=== PATIENT | male | born 1945 | race Caucasian/White ===

== ENCOUNTER 2023-10-22 12:12 | Emergency (ER) | payer MEDICARE, OTHER, SELFPAY ==
[2023-10-22 12:44] LABS: % Basophils 3.2 % (0-2); % Eosinophils 3.7 % (0-6); % Lymphocytes 22.4 % (20.5-51.1); % Monocytes 7.3 % (1.7-9.3); % Neutrophils 62.4 % (42.2-75.2); Absolute Basophils 0.2 10^3/uL (0-0.2); Absolute Eosinophils 0.3 10^3/uL (0-0.7); Absolute Immature Granulocytes 0.1 10^3/uL (0-0.05); Absolute Lymphocytes 1.6 10^3/uL (1.2-3.4); Absolute Monocytes 0.5 10^3/uL (0.1-0.6); Absolute Neutrophils 4.4 10^3/uL (1.4-6.5); Hematocrit 46.9 % (39.0-52.0); Hemoglobin 15.5 g/dL (13.0-18.0); Mean Corpuscular Hgb 27.8 pg (27.0-31.0); Mean Corpuscular Volume 84.2 fL (80.0-94.0); Mean Platelet Volume 10.3 fL (7.4-10.4); Nucleated Red Blood Cells % 0 % (-); Platelet Count 185 10^3/uL (130-400); Red Blood Cell Count 5.57 10^6/uL (4.70-6.10); Red Cell Dist. Width 15.3 % (11.5-14.5)
[2023-10-22 13:04] LABS: ALT (SGPT) 19 U/L (0-50); AST (SGOT) 23 U/L (17-59); Albumin 4.2 g/dl (3.5-5.0); Alkaline Phosphatase 55 U/L (38-126); Blood Urea Nitrogen 20 mg/dl (9-20); Calcium 9.5 mg/dl (8.4-10.2); Carbon Dioxide 28 mmol/L (22-30); Chloride 102 mmol/L (98-107); Glucose 73 mg/dl (70-99); Potassium 4.7 mmol/L (3.5-5.1); Sodium 134 mmol/L (135-145); Total Bilirubin 0.9 mg/dl (0.2-1.3); Total Protein 7.1 g/dl (6.3-8.2); eGFR > 60.00
[2023-10-22 13:10] LABS: Troponin I < 0.012 ng/ml
--- NOTE | 2023-10-22 13:38 | ED.GENMED ---
History of Present Illness
General
Chief Complaint: Chest Pain
Source: patient and spouse
Exam Limitations: none
Time Seen by Provider: 10/22/23 13:31
Nursing documentation reviewed up to this point in time: agreed with
Travel History
Have you had any contact with someone who has COVID-19?: No
Do you have any symptoms of coronavirus? Fever > 100 degrees, chills, cough, shortness of breath, sore throat, loss of taste or smell, muscle aches, or headache?: No
History of Present Illness
History of Present Illness:
77-year-old male with history of HLD, dilated aorta gets CT every year to monitor. Pt states he's had 'tingling' across anterior upper chest and both arms, mainly the left arm and once in a while the right leg past 3 days. Waxes and wanes /10 to
now 10/06. Denies SOB, has had 'once in a while a little pressure in the mid chest.' Denies CP now. Denies feeling lightheaded.
Past History
Past History
ED Past Medical History: Hypercholesterolemia and Other ('enlarged aorta')
ED Past Surgical History: Orthopedic
Social History
Tobacco: Non-smoker
Alcohol: None
Personal:
Living: with family
Review of Systems
Review of Systems
Allergies reviewed?: Yes
All Other Systems: ROS reviewed and negative except as documented in HPI and ROS
Constitutional: Denies fever or fatigue
Respiratory: Denies trouble breathing
Cardiac: Reports chest pain (intermittent); Denies diaphoresis, palpitations or syncope
ABD/GI: Denies abdominal pain, nausea, vomiting, diarrhea or anorexia
: Denies dysuria, frequency, incontinence or difficulty voiding
Musculoskeletal: Reports no symptoms; Denies edema
Skin: Reports no symptoms
Neurological: Reports other (tingling sensation waxes and wanes intermittently UE's and across upper chest wall, RLE); Denies dizzy, headache, weakness or numbness
Phy Exam
Physical Exam
Physical Exam:
GENERAL: No acute distress. A&Ox3.
CONSTITUTIONAL: Afebrile.
EYES: clear, conjunctivae normal
ENMT: moist mucus membranes, Pharynx nl
RESPIRATORY: Regular respirations, nonlabored, lungs clear.
CARDIOVASCULAR: Regular rate and rhythm, no murmurs, no rubs.
GI: Soft, nontender, normal BS
MUSCULOSKELETAL: Moves with ease. Well perfused.
SKIN: Warm, dry, pink
PSYCH: Normal mood and affect. Well kept, interactive and appropriate
NEUROLOGIC: Awake, alert and oriented. Speech clear. Strength 5/5 throughout. Ambulates well with normal gait. No focal neurological deficits
Scores
Heart Score for Chest Pain Patients
STEMI patient?: Not applicable
Course
Orders/Labs/Results
Orders:
Orders
10/22/23 12:28
ECG [Electrocardiogram (*1)] Urgent
Reason for Study: Chest Pain
10/22/23 12:32
EKG- Treatment ONCE
10/22/23 12:38
Complete Blood Count/With Diff Urgent
Comprehensive Metabolic Panel Urgent
Troponin I Urgent
10/22/23 14:56
CT Chest/abd/pelvis Angio W/wo Urgent
Comment:
Reason For Exam: hx dilated aorta, parestesthesias both arms, chest
Abnormal Lab Results
10/22/23
12:38
RDW 15.3 H %
(11.5-14.5)
Abs Immat Gran (auto) 0.1 H 10^3/uL
(0-0.05)
Immature Gran % 1.0 H %
(0-0.5)
Basophils % 3.2 H %
(0-2)
Sodium 134 L mmol/L
(135-145)
10/22/23 12:38
10/22/23 12:38
Vital Signs
Initial and Last Documented VS:
Initial Vital Signs
Temp Pulse Resp BP Pulse Ox
98.7 F 64 16 138/81 95
10/22/23 12:28 10/22/23 12:28 10/22/23 12:28 10/22/23 12:28 10/22/23 12:28
Last Documented Vital Signs
Temp Pulse Resp BP Pulse Ox
98.7 F 67 19 132/60 95
10/22/23 12:28 10/22/23 17:45 10/22/23 17:45 10/22/23 17:17 10/22/23 17:45
MDM/Problems Addressed
Differential Diagnosis Includes:
paresthesias, VA, AAA
MDM/Problems Addressed:
77-year-old male with history of HLD, dilated aorta gets CT every year to monitor. Pt states he's had 'tingling' across anterior upper chest and both arms, mainly the left arm and once in a while the right leg past 3 days. Waxes and wanes 12/04 to
now 10/06. Denies SOB, has had 'once in a while a little pressure in the mid chest.' Denies CP now. Denies feeling lightheaded.
NAD, VSS
EKG: Sinus bradycardia, LAD
10/22/2023 1339 PM
Records reviewed, patient had an echocardiogram in 11/2021 showing EF of 60 to 65%, mild left ventricular hypertrophy, dilated aortic root and ascending aorta 4.6 cm mild aortic regurgitation. Echo of 12/2022 notes that the aorta went from 4.6 to 4.9
cm
CBC, CMP normal
Case discussed with Dr. Neff who agrees with CTA to evaluated Aorta
10/22/2023 1752 PM
Chest CTA, radiology report read: IMPRESSION: No acute disease of the chest, abdomen and pelvis. No evidence of aortic dissection.
Ascending aortic aneurysm measuring 4.7 cm. Stable
Hypodense right thyroid lesion likely a benign nodule. Stable. Dedicated thyroid ultrasound recommended if not previously evaluated.
Pancreatic fatty infiltration. Stable
Bilateral hip hardware.
Patient stable for discharge, ambulated out with normal gait.
*Critical Care Note
Total Time (30-74mins, 75-104mins- exclusive of procedures): Not Applicable
ED Attending Note
-
Portions of this chart may have been created with voice recognition software.� Occasional wrong word or��sound alike� substitutions may have occurred due to the inherent limitations of voice recognition software.
Discharge Plan
Departure
Patient Disposition: Home (Routine Discharge)
Date of Disposition: 10/22/23
Time of Disposition: 17:55
Patient with high blood pressure during this ER visit?: No
Condition: Good
Discharge Problem:
Paresthesia
Instructions: Paresthesia (DC)
Prescriptions:
No Action
atorvastatin [Lipitor] 10 mg Tablet
10 mg PO HS
ramipril 5 mg Capsule
5 mg PO QPM
Sleep Aid (doxylamine) 25 mg Tablet
25 mg PO HS PRN (Reason: sleep)
Flexi Joint 500-400-166.6 mg Tablet
1 tab PO BID
Prostate Control 67-28-76-100 mg Capsule
1 cap PO DAILY
Referrals:
Santiago Avila DO [Family Provider] - Keep scheduled appt
Activity Restrictions/Additional Instructions:
As we discussed, your workup here for a heart attack is totally negative.
Keep your appointment on 04/[address] Martinez on 11/01. Please discuss your tingling sensations at that time.
Interventions
Interventions:
*Risk Screen - Suicide Last Done: 10/22/23 13:13
*General Assessment Last Done: 10/22/23 15:15
*Neglect/Abuse Screening Last Done: 10/22/23 13:13
ED- Fall Risk Assessment Last Done: 10/22/23 17:58
*ED COVID-19 Vaccine History Last Done: 10/22/23 15:15
*Nursing Disposition Last Done: 10/22/23 17:58
ED- Cardiac Assessment Last Done: 10/22/23 14:53
Discharge Date and Time
Discharge Date/Time: 10/22/23 18:03
== END 2023-10-22 18:03 | disposition home or self-care (01) ==
LOC: EMR 12:12
PROVIDERS: Emergency Medicine; EMERGENCY PHYSICIAN Emergency Medicine; FAMILY PHYSICIAN Internal Medicine
DX: R20.2 Paresthesia of skin (principal); R07.9 Chest pain, unspecified; I71.21 Aneurysm of the ascending aorta, without rupture
CPT/HCPCS: 99285; 71275; 74174; 80053; 84484; 85025; 93005; Q9967

== ENCOUNTER → 2024-06-17 11:01 | Outpatient (REF) | payer MEDICARE, OTHER, SELFPAY | LOC: DHCBC/DCA 11:01 | PROVIDERS: ATTENDING PHYSICIAN Internal Medicine; FAMILY PHYSICIAN Internal Medicine | DX: R07.9 Chest pain, unspecified (principal); I77.89 Other specified disorders of arteries and arterioles | CPT/HCPCS: 78452; 93017; A9500; J2785 ==

== ENCOUNTER → 2024-06-20 12:56 | Outpatient (REF) | payer MEDICARE, OTHER, SELFPAY | LOC: RCS 12:56 | PROVIDERS: ATTENDING PHYSICIAN Internal Medicine; FAMILY PHYSICIAN Internal Medicine | DX: I77.89 Other specified disorders of arteries and arterioles (principal); R07.9 Chest pain, unspecified | CPT/HCPCS: 93306 ==

== ENCOUNTER → 2025-04-02 12:05 | Outpatient (REF) | payer MEDICARE, OTHER, SELFPAY | LOC: HWRAD 12:05 | PROVIDERS: ATTENDING PHYSICIAN Nurse Practitioner Family | DX: Z00.00 Encounter for general adult medical examination without abnormal findings (principal) | CPT/HCPCS: 71046 ==

== ENCOUNTER 2025-04-06 10:38 | Inpatient (IN) | payer MEDICARE, OTHER, SELFPAY ==
[2025-04-06] VITALS (16 sets, daily range): BP systolic 76–130; BP diastolic 47–79; PULSE 74–102; BMI 29.0
--- NOTE | 2025-04-06 05:28 | EDRN ---
During ortho signs, pt felt some nausea when he was sitting, no dizziness. While standing, pt felt dizzy then noted some chest discomfort in upper chest.
[2025-04-06] MEDS: NSS 1000 IV ×2 (05:30→16:53)
[2025-04-06 05:38] LABS: Hematocrit 36.0 % (39.0-52.0); Hemoglobin 11.9 g/dL (13.0-18.0); Mean Corp Hgb Conc. 33.1 g/dL (33.0-37.0); Mean Corpuscular Volume 89.1 fL (80.0-94.0); Platelet Count 387 10^3/uL (130-400); Red Cell Dist. Width 17.5 % (11.5-14.5)
--- NOTE | 2025-04-06 05:43 | EDRN ---
Pt thinks he vomited approximately 3-4 times last night. Pt had a hamburger, bread and caprese salad for dinner. No ill contacts.
[2025-04-06 05:56] LABS: ALT (SGPT) 17 U/L (0-50); AST (SGOT) 22 U/L (17-59); Albumin 3.8 g/dl (3.5-5.0); Alkaline Phosphatase 65 U/L (38-126); Blood Urea Nitrogen 22 mg/dl (9-20); Calcium 9.0 mg/dl (8.4-10.2); Carbon Dioxide 26 mmol/L (22-30); Chloride 108 mmol/L (98-107); Estimated Creatinine Clearance 52 ml/min; Glucose 126 mg/dl (70-99); Potassium 4.3 mmol/L (3.5-5.1); Sodium 142 mmol/L (135-145); Total Protein 6.4 g/dl (6.3-8.2); eGFR > 60.00
[2025-04-06 06:06] LABS: Troponin I < 0.012 ng/ml
[2025-04-06 06:09] LABS: Urine Character Clear (Clear)
[2025-04-06 06:16] LABS: Urine White Cell 0-2 /HPF (0-5)
--- NOTE | 2025-04-06 06:27 | ED.GENMED ---
History of Present Illness
<Jacquelyn Azar DO, Resident - Last Filed: 04/06/25 13:11>
General
Chief Complaint: Fainting Sensation
Source: patient and significant other
Time Seen by Provider: 04/06/25 06:05
History of Present Illness
History of Present Illness:
Patient is a 79-year-old male past medical history of a stable aortic aneurysm, presenting with dizziness and nausea. Patient has been feeling unwell for the last 2 weeks with new dizziness, nausea, vomiting, being worked up by primary care.
Patient states that he is being worked up for leukemia, and has a visit with [facility] tomorrow. Last night patient had an episode of dizziness where he could not stand up and fell to the ground. Patient denies a loss of consciousness.
Patient denies hitting his head. Patient was on the bathroom floor for up to 2 hours until his heard him and came down stairs to help. called EMS. When EMS arrived patient was hypotensive and hypoxic. They started him on 200 mL of
normal saline. In the ED patient's blood pressure is 108/47, heart rate 98 respiratory rate 18 O2 sat 92%. Patient endorses nausea chills dizziness and now new onset chest discomfort.
Past History
<Jacquelyn Azar DO, Resident - Last Filed: 04/06/25 13:11>
Past History
ED Past Medical History: Hypercholesterolemia and Other ('enlarged aorta')
ED Past Surgical History: Orthopedic
Social History
Tobacco: Non-smoker
Alcohol: None
Personal:
Living: with family
Review of Systems
<Jacquelyn Azar DO, Resident - Last Filed: 04/06/25 13:11>
Review of Systems
Allergies reviewed?: No
All Other Systems: ROS reviewed and negative except as documented in HPI and ROS
Constitutional: Reports fatigue and chills
EENT: Reports no symptoms
Respiratory: Reports no symptoms
Cardiac: Reports chest pain
ABD/GI: Reports nausea and vomiting
: Reports no symptoms
Musculoskeletal: Reports no symptoms
Skin: Reports no symptoms
Neurological: Reports dizzy
Hematologic/Lymphatic: Reports no symptoms
Psychiatric: Reports no symptoms
Phy Exam
<Jacquelyn Azar DO, Resident - Last Filed: 04/06/25 13:11>
General Physical Exam
General Presentation: well appearing and no apparent distress
General age: appears stated age
General Skin: warm and dry
General Habitus: obese
General Mental: alert
Cardiovascular Exam
Cardiovascular Exam: occasionally irregular
Heart Sounds: normal
Pulmonary Exam
Pulmonary Exam: lungs clear and no respiratory distress
Gastrointestinal Exam
Gastrointestinal Exam: normal bowel sounds, non tender, soft and non distended
Neurological Exam
Neurological Exam: alert and oriented x3
Skin Exam
Skin Exam: normal color and warm/dry
Psychiatric Exam
Psychiatric Exam: normal mood/affect
Course
<Jacquelyn Azar DO, Resident - Last Filed: 04/06/25 13:11>
Orders/Labs/Results
Orders:
Orders
04/06/25 05:18
EKG [Electrocardiogram (*1)] Urgent
Reason for Study: Vertigo / Dizzy
04/06/25 05:19
EKG- Treatment ONCE
04/06/25 05:20
Complete Blood Count/With Diff Urgent
Comprehensive Metabolic Panel Urgent
Manual Differential Urgent
Comment: ADD ON
04/06/25 05:21
NT-proBNP Urgent
Comment: ADD ON
Troponin I Urgent
04/06/25 05:32
0.9% Sodium Chloride 1000 ml [Nss] 1,000 ml IV BOLUS
04/06/25 05:41
Urinalysis Reflex To Culture Urgent
Date Specimen was Collected: 04/06/25
Time Specimen was Collected: 05:39
Urine Microscopic Reflex Cult Urgent
04/06/25 06:36
CT Head W/o Iv Contrast Urgent
Comment:
Reason For Exam: dizziness, N/V
04/06/25 06:54
CT Chest PE Study Urgent
Comment:
Reason For Exam: hypoxic and dizzy
04/06/25 08:45
Ondansetron Injectable [Zofran] 4 mg IV NOW STA
04/06/25 09:36
Add On- LAB Urgent
Tests Added?: probnp
04/06/25 09:40
Bladder Scan As Directed
Follow Bladder Retention/Intermittent Cath Algorithm?: Yes
PRN if no void in __ hours: 6
Frequency: Per Retention Algorithm
If Bladder Scan Result >: 400
then:: Straight cath
Straight Cath As Directed
Frequency: Per Retention Algorithm
Additional Instructions: straight cath as needed per acute urinary retention algorithm for 24 hrs
Additional Instructions: for bladder scan greater than 400 mL
04/06/25 10:20
Iohexol [Omnipaque] See Protocol PO NOW STA
Ondansetron Injectable [Zofran] 4 mg IV Q6HPRN PRN
04/06/25 10:21
Admit/Transfer Patient As Directed
Co-Sign Provider:
Level of Care: Inpatient admission
Assign to:: Telemetry
Physician / Group: susan grayson
Diagnosis: nausea and vomiting,orthostatic hypotension
Reason for Telemetry: Arrhythmia
Date to Stop Telemetry: 04/09/25
Time to Stop Telemetry: 11:00
Reason for Hospitalization: nausea and vomiting,orthostatic hypotension
Expected length of stay greater than two midnights?: Yes
ELOS- Estimated Length of Stay in days: 3
I certify the patient meets the requirements for IP care: Yes
PRN Pain Medication Management As Directed
May give lesser potent ordered pain med per pt: Yes
preference::
Protocol:: Medication orders for pain may be administered in a
manner that supports deferring to patient preference
when the pt is:
- Requesting an ordered lesser potent pain medication.
Least to most potent pain medications are defined
as: acetaminophen < NSAID < tramadol < opioids
(morphine, oxycodone, hydromorphone).
- Requesting a lesser dose of the same medication IF
ORDERED.
- Requesting a less intrusive route of administration
if both routes are prescribed by the provider (PO <
IV).
04/06/25 10:22
Code Status As Directed
Resuscitation Status: Full Code
04/06/25 10:25
HEMATOLOGY CONSULT Routine
Consulting Provider: Mikki Herbert
Was physician already notified: Yes
04/06/25 10:26
Iohexol [Omnipaque] 50 ml .ROUTE .STK-MED ONE
04/06/25 10:27
Orthostatic Vital Signs As Directed
Orthostatic VS Frequency: BID
Sequential Compression Device [Pneumatic Compression Sleeves] As Directed
Type: Knee high
DX Deep Vein Thrombosis Video Routine
04/06/25 10:30
0.9% Sodium Chloride 1000 ml [Nss] 1,000 ml IV 70 mls/hr
04/06/25 11:00
Flush (0.9% Sodium Chloride) [Flush (Nss)] See Dose Instructions IV PER PROTOCOL
04/07/25 06:00
TSH Reflex To Free T4 IN AM
04/09/25 11:00
DC Protocol for Telemetry ONCE
Abnormal Lab Results
04/06/25 04/06/25
05:20 05:41
WBC 16.8 H 10^3/uL
(4.8-10.8)
RBC 4.04 L 10^6/uL
(4.70-6.10)
Hgb 11.9 L g/dL
(13.0-18.0)
Hct 36.0 L %
(39.0-52.0)
RDW 17.5 H %
(11.5-14.5)
MPV 11.8 H fL
(7.4-10.4)
Abs Neuts (Manual) 12.6 H 10^3/uL
(1.4-6.5)
Lymphocytes (Manual) 15 L %
(20-51)
Chloride 108 H mmol/L
(98-107)
BUN 22 H mg/dl
(9-20)
Glucose 126 H mg/dl
(70-99)
Urine RBC 3-6 A /HPF
(0-2)
Urine Albumin (Reflex) 1+ A
(Neg - Trace)
04/06/25 05:20
04/06/25 05:20
Vital Signs
Initial and Last Documented VS:
Initial Vital Signs
Temp
98.8 F
04/06/25 05:08
Last Documented Vital Signs
Temp Pulse Resp BP Pulse Ox
98.8 F 93 26 107/61 92
04/06/25 05:08 04/06/25 06:00 04/06/25 06:00 04/06/25 06:00 04/06/25 06:31
<Maegan Barakat, DO - Last Filed: 04/06/25 08:19>
Orders/Labs/Results
Orders:
Orders
04/06/25 05:18
EKG [Electrocardiogram (*1)] Urgent
Reason for Study: Vertigo / Dizzy
04/06/25 05:19
EKG- Treatment ONCE
04/06/25 05:20
Complete Blood Count/With Diff Urgent
Comprehensive Metabolic Panel Urgent
Manual Differential Urgent
Comment: ADD ON
04/06/25 05:21
NT-proBNP Urgent
Comment: ADD ON
Troponin I Urgent
04/06/25 05:32
0.9% Sodium Chloride 1000 ml [Nss] 1,000 ml IV BOLUS
04/06/25 05:41
Urinalysis Reflex To Culture Urgent
Date Specimen was Collected: 04/06/25
Time Specimen was Collected: 05:39
Urine Microscopic Reflex Cult Urgent
04/06/25 06:36
CT Head W/o Iv Contrast Urgent
Comment:
Reason For Exam: dizziness, N/V
04/06/25 06:54
CT Chest PE Study Urgent
Comment:
Reason For Exam: hypoxic and dizzy
04/06/25 08:45
Ondansetron Injectable [Zofran] 4 mg IV NOW STA
04/06/25 09:36
Add On- LAB Urgent
Tests Added?: probnp
04/06/25 09:40
Bladder Scan As Directed
Follow Bladder Retention/Intermittent Cath Algorithm?: Yes
PRN if no void in __ hours: 6
Frequency: Per Retention Algorithm
If Bladder Scan Result >: 400
then:: Straight cath
Straight Cath As Directed
Frequency: Per Retention Algorithm
Additional Instructions: straight cath as needed per acute urinary retention algorithm for 24 hrs
Additional Instructions: for bladder scan greater than 400 mL
04/06/25 10:20
Iohexol [Omnipaque] See Protocol PO NOW STA
Ondansetron Injectable [Zofran] 4 mg IV Q6HPRN PRN
04/06/25 10:21
Admit/Transfer Patient As Directed
Co-Sign Provider:
Level of Care: Inpatient admission
Assign to:: Telemetry
Physician / Group: susan grayson
Diagnosis: nausea and vomiting,orthostatic hypotension
Reason for Telemetry: Arrhythmia
Date to Stop Telemetry: 04/09/25
Time to Stop Telemetry: 11:00
Reason for Hospitalization: nausea and vomiting,orthostatic hypotension
Expected length of stay greater than two midnights?: Yes
ELOS- Estimated Length of Stay in days: 3
I certify the patient meets the requirements for IP care: Yes
PRN Pain Medication Management As Directed
May give lesser potent ordered pain med per pt: Yes
preference::
Protocol:: Medication orders for pain may be administered in a
manner that supports deferring to patient preference
when the pt is:
- Requesting an ordered lesser potent pain medication.
Least to most potent pain medications are defined
as: acetaminophen < NSAID < tramadol < opioids
(morphine, oxycodone, hydromorphone).
- Requesting a lesser dose of the same medication IF
ORDERED.
- Requesting a less intrusive route of administration
if both routes are prescribed by the provider (PO <
IV).
04/06/25 10:22
Code Status As Directed
Resuscitation Status: Full Code
04/06/25 10:25
HEMATOLOGY CONSULT Routine
Consulting Provider: Mikki Herbert
Was physician already notified: Yes
04/06/25 10:26
Iohexol [Omnipaque] 50 ml .ROUTE .STK-MED ONE
04/06/25 10:27
Orthostatic Vital Signs As Directed
Orthostatic VS Frequency: BID
Sequential Compression Device [Pneumatic Compression Sleeves] As Directed
Type: Knee high
DX Deep Vein Thrombosis Video Routine
04/06/25 10:30
0.9% Sodium Chloride 1000 ml [Nss] 1,000 ml IV 70 mls/hr
04/06/25 11:00
Flush (0.9% Sodium Chloride) [Flush (Nss)] See Dose Instructions IV PER PROTOCOL
04/07/25 06:00
TSH Reflex To Free T4 IN AM
04/09/25 11:00
DC Protocol for Telemetry ONCE
Abnormal Lab Results
04/06/25 04/06/25
05:20 05:41
WBC 16.8 H 10^3/uL
(4.8-10.8)
RBC 4.04 L 10^6/uL
(4.70-6.10)
Hgb 11.9 L g/dL
(13.0-18.0)
Hct 36.0 L %
(39.0-52.0)
RDW 17.5 H %
(11.5-14.5)
MPV 11.8 H fL
(7.4-10.4)
Abs Neuts (Manual) 12.6 H 10^3/uL
(1.4-6.5)
Lymphocytes (Manual) 15 L %
(20-51)
Chloride 108 H mmol/L
(98-107)
BUN 22 H mg/dl
(9-20)
Glucose 126 H mg/dl
(70-99)
Urine RBC 3-6 A /HPF
(0-2)
Urine Albumin (Reflex) 1+ A
(Neg - Trace)
04/06/25 05:20
04/06/25 05:20
Vital Signs
Initial and Last Documented VS:
Initial Vital Signs
Temp
98.8 F
04/06/25 05:08
Last Documented Vital Signs
Temp Pulse Resp BP Pulse Ox
98.8 F 93 26 107/61 92
04/06/25 05:08 04/06/25 06:00 04/06/25 06:00 04/06/25 06:00 04/06/25 06:31
<Jacquelyn Azar DO, Resident - Last Filed: 04/06/25 13:11>
MDM/Problems Addressed
MDM/Problems Addressed:
Lab work unremarkable aside from slightly elevated white blood cell count. Will order head CT and PE study given patient is still hypoxic and now complaining of chest pain. In the ED patient's orthostatic vitals are positive patient is experiencing
dizziness hypotension and intermittent hypoxia oxygen saturations are in the high 80s to low 90s no respiratory distress. EKG is nonischemic, sinus arrhythmia. CT chest PE study showed no evidence of pulmonary embolism, stable 4.7 cm aneurysm
dilation of the ascending thoracic aorta and slightly prominent pulmonary vascular/interstitial markings. CT head was negative. Will admit patient.
<Jacquelyn Azar DO, Resident - Last Filed: 04/06/25 13:11>
*Pulse Oximetry
SaO2: 92
Oxygen Mode of Delivery: Room air
Patient hypoxic: yes
*Critical Care Note
Total Time (30-74mins, 75-104mins- exclusive of procedures): Not Applicable
ED Attending Note
<Jacquelyn Azar DO, Resident - Last Filed: 04/06/25 13:11>
-
Portions of this chart may have been created with voice recognition software.� Occasional wrong word or��sound alike� substitutions may have occurred due to the inherent limitations of voice recognition software.
<Maegan Barakat DO - Last Filed: 04/06/25 08:19>
ED Attending Note
Patient seen and examined by attending physician: Yes
I performed the substantive portion of visit, reviewed & personally made and approve the management plan that is documented in note by myself or PEARL.: Yes
I performed a history and physical exam of patient and discussed management with resident, I reviewed resident's note and agree with documented findings and plan of care.: Yes
ED Attending Note:
79-year-old male with history of hyperlipidemia and high blood pressure presenting to the emergency department for dizziness and generally feeling unwell. Patient reports for the past few weeks he has been feeling dizzy with nausea and occasional
vomiting. It started when he was on vacation in [place] and has since progressed. He followed with his primary care doctor and they noted concern for possible leukemia given the morphology of his blood cells. Last evening particularly,
patient was more dizzy. He got up to go to the bathroom, felt dizzy. He went to the bathroom, dizziness progressed and he lowered himself to the ground. Denies true syncope. Patient had multiple episodes of vomiting. Denies associated abdominal
pain. Ambulance was called and per medics, systolic blood pressure was 98, and then upon standing it was 250. Oxygen saturation was also 89 to 90%. Patient denies cough or fever. Notes some general chest soreness, suspects from all the vomiting.
Vital signs on arrival significant for mildly low blood pressure.
On exam patient is resting comfortably, no acute distress or discomfort. He is generally pale in appearance. Benign cardiac and pulmonary exam. No tenderness to abdomen or chest. No midline tenderness of C-spine, no signs of head trauma. No
focal neurologic deficits. Patient orthostatics obtained prior to my assessment, which are positive. EKG is nonischemic, sinus arrhythmia. Suspect component of vomiting patient has etiology of orthostasis. However, oxygen saturations are also in
the high 80s to low 90s, no respiratory distress, unremarkable pulmonary exam. Labs obtained prior to my assessment, leukocytosis without additional abnormal findings. Pending differential. In the setting of dizziness, hypotension, intermittent
hypoxia, possible abnormal emergency, will obtain CT PE study. Due to persistent dizziness, will also obtain CT brain imaging. No present vertiginous symptoms. IV fluids ordered
08:15 -CT brain is negative. CT of the chest without significant acute pathology, possible component of mild interstitial edema. Given patient's persistence of symptoms with positive orthostatics, unsafe disposition home, fall risk. Plan for
admission for continued hemodynamic monitoring and continued evaluation
Discharge Plan
Departure
Patient Disposition: Admit
Date of Disposition: 04/06/25
Time of Disposition: 08:20
Presentation/result/management discussed w/ accepting MD/DO: Hospitalist
Discharge Problem:
Orthostatic dizziness
Interventions
Interventions:
*Risk Screen - Suicide Last Done: 04/06/25 05:08
*General Assessment Last Done: 04/06/25 05:08
*Neglect/Abuse Screening Last Done: 04/06/25 05:08
*ED- Fall Risk Assessment Last Done: 04/06/25 05:19
ED- Cardiac Assessment Last Done: 04/06/25 05:50
ED- Neurological Assessment Last Done: 04/06/25 05:50
[2025-04-06 07:20] LABS: Absolute Neutrophils -Man Diff 12.6 10^3/uL (1.4-6.5); Platelets Checked Yes
[2025-04-06 07:21] LABS: Normal RBC Morphology Yes; Total Cells Counted 100
[2025-04-06] MEDS: ZOFRAN 4 MG IV ×2 (08:56→14:00)
[2025-04-06] MEDS: OMNIPAQUE 50 ML PO (10:30)
--- NOTE | 2025-04-06 11:40 | CON.ONC ---
Impression
Impression
79yoM presenting with lightheadedness and presyncopal episode with orthostatic hypotension with a few weeks history of abdominal pain, chills, weakness, and fatigue.
In conjunction with the outpatient records, low concern for acute malignant process based on WBC and differential. New leukocytosis to 16.8 and normocytic anemia Hgb 11.9 from 13.5 on 03/27/25. Outpt values WNL. Outpt SPEP negative. Afebrile.
Orthostatic hypotension. Chest and head CT unremarkable.
Plan
Plan
#normocytic anemia
Iron studies, Folate, B12
Reticulocyte count
Hemolysis panel
#Leukocytosis
Recommend ID consult
Tick borne panel
Few immature forms. Low suspicion for malignant process
#abdominal pain
Heme occult blood
Recommend GI consult to evaluate for possible source of anemia and abdominal pain.
#orthostatic hypotension
Patient History
History of Present Illness
79yoM PMH stable aortic aneurysm presenting with lightheadedness. Pt reports vomiting and dry heaving all night with a presyncopal episode when he felt dizzy and lightheaded with no LOC or HS. His found him on the bathroom floor hours later and
called EMS since he could not get up himself.
He ate dinner last night and began vomiting hours later. He reports over the last few weeks feeling nauseas with abdominal pain described as 'upset stomach,' chills, weakness, and fatigue. His abdominal pain gets better with eating food. Denies
current pain. Denies fever, rash, black tarry stools, or weight loss. Denies prior history of hypotension or syncope.
Pt was being worked up by his PCP Patrick Garg NP at [facility] for these symptoms when he had labwork done 03/27/25 and was put on omperazole for abdominal pain that did not help. Pt reports being told there was concern in his blood cell
counts that he was worried was indicative of leukemia since he is a [place] [employer] with history of agent orange exposure. He has an appointment with [facility] scheduled for tomorrow at [facility].
Denies recent medication changes since these symptoms began. In December, he began taking tamsulosin in the morning for BPH and changed rampipril once a day 10mg to BID 5mg without reported complaints.
Past-Medical/Surgical History
Mohs- nonmelanoma removal
Bilat hip replacement
R wrist cyst removal
Patient Medication
�Medication �Instructions �Recorded �Confirmed �Last Taken �Type
atorvastatin 10 mg tablet (Lipitor) 10 mg PO HS High Cholesterol 10/22/23 04/06/25 04/05/25 History
jmmpehpkycy-cxirv-bch-vit C-Mn 500 1 tab PO BID Supplement 10/22/23 04/06/25 04/05/25 History
mg-400 mg-166.6 mg tablet (Flexi
Joint)
ramipril 5 mg capsule 5 mg PO BID Blood Pressure 10/22/23 04/06/25 04/05/25 History
saw palm 50 mg-pyg 20 mg-nettl 25 1 cap PO DAILY Supplement 10/22/23 04/06/25 04/05/25 History
mg-pump 100 ze-cohf-nv-Zn-Cu
capsule (Prostate Control)
Relaxium 1 cap PO HS Supplement 04/06/25 04/06/25 04/05/25 History
cholecalciferol (vitamin D3) 50 50 mcg PO DAILY Supplement 04/06/25 04/06/25 04/05/25 History
mcg (2,000 unit) capsule (Vitamin
D3)
tamsulosin 0.4 mg capsule (Flomax) 0.4 mg PO QPM Urinary Issue 04/06/25 04/06/25 04/05/25 History
Active Medications
Generic Name Dose Route Start Last Admin
Trade Name Freq PRN Reason Stop Dose Admin
Sodium Chloride 1,000 mls @ 70 mls/hr 04/06/25 10:30
Nss IV
.[id number] JAZMINE
Ondansetron HCl 4 mg 04/06/25 10:20
Ondansetron 4 Mg/2 Ml Vial IV 05/04/25 10:19
Q6HPRN PRN
NAUSEA/VOMITING
Sodium Chloride 0 flush 04/06/25 11:00
Sodium Chloride 0.9% (Flush) Syringe IV 05/04/25 10:59
PER PROTOCOL JAZMINE
Review of Systems
-
History Source: Patient
Constitutional: Reports Fatigue, Chills and Weakness
Respiratory: Reports No Symptoms
Cardiac: Reports No Symptoms
GI: Reports Abdominal Pain, Nausea and Vomiting
: Reports Frequency (at baseline)
Musculoskeletal: Reports No Symptoms
Neuro: Reports Weakness and Lightheadedness
Endocrine: Reports No Symptoms
Physical Exam
-
General: Well Developed, Well Nourished, No Apparent Distress and Comfortable
HEENT: Moist Mucous Membranes
Pulmonary: Other (no repsiratory distress)
GI: Soft, Distended and Other (no tenderness)
Musculoskeletal: No Clubbing, No Cyanosis and No Edema
Neurology: Non Focal
Skin: Warm and Dry
Labs
Lab Results
WBC 16.8 10^3/uL (4.8-10.8) H 04/06/25 05:20
RBC 4.04 10^6/uL (4.70-6.10) L 04/06/25 05:20
Hgb 11.9 g/dL (13.0-18.0) L 04/06/25 05:20
Hct 36.0 % (39.0-52.0) L 04/06/25 05:20
MCV 89.1 fL (80.0-94.0) 04/06/25 05:20
MCH 29.5 pg (27.0-31.0) 04/06/25 05:20
MCHC 33.1 g/dL (33.0-37.0) 04/06/25 05:20
RDW 17.5 % (11.5-14.5) H 04/06/25 05:20
Plt Count 387 10^3/uL (130-400) 04/06/25 05:20
MPV 11.8 fL (7.4-10.4) H 04/06/25 05:20
Creatinine 1.2 mg/dL (0.7-1.3) 04/06/25 05:20
Vital Signs
Vital Signs
Temp Pulse Resp BP Pulse Ox
98.8 F 93 26 107/61 92
04/06/25 05:08 04/06/25 06:00 04/06/25 06:00 04/06/25 06:00 04/06/25 06:31
--- NOTE | 2025-04-06 11:40 | CM ---
Met with patient and his at bedside in the ED
Pharmacy verified: [facility] @ [address] [facility]
Patient lives w/ ; multilevel home; 1 step to enter; 11 steps between floors; railings on stairs
PLOF: patient reported he is independent with ambulation, stairs, and ADLs; active; drives
No DME
No SNF utilization; Home Health 2021 after joint surgery; does not recall name of agency
or step-daughter will provide transport home
Plan: Discharge to home when medically stable; Case Management will monitor for needs/services
--- NOTE | 2025-04-06 15:00 | HPS.HSE ---
Family Physician
-
Family Physician: Santiago Avila
Chief Complaint
-
Nausea, vomiting and dizziness
History of Present Illness
79-year-old male with past medical history of aortic aneurysm, hyperlipidemia, hypertension came to the hospital with ongoing nausea vomiting. Patient has also been complaining of not feeling well for the past 2 weeks and also now started
developing dizziness. Denies any sick contacts. He also was found on the bathroom floor until his heard him and came downstairs to help. In the EMS patient was hypotensive. Currently denies any fever/chills. Denies any shortness of breath.
Medical History
Past Medical History
Past Medical History: Reports HTN, Hypercholesterolemia and Other (BPH, aortic aneurysm)
Past Surgical History: Reports Orthopedic
Social History
Tobacco: Non-smoker
Alcohol: None
Family History
Family History: Not pertinent
Allergies / Home Medications
Allergies reflects when Allergies were last updated in [employer].
Home Medications with original date entered in [employer]
Allergy/Medication List:
Allergies
Allergy/AdvReac Type Severity Reaction Status Date / Time
No Known Allergies Allergy Verified 04/06/25 05:07
Home Medications
atorvastatin 10 mg tablet (Lipitor) 10 mg PO HS High Cholesterol 10/22/23
kvfezpazwij-qbqvl-fkn-vit C-Mn 500 mg-400 mg-166.6 mg tablet (Flexi Joint) 1 tab PO BID Supplement 10/22/23
ramipril 5 mg capsule 5 mg PO BID Blood Pressure 10/22/23
saw palm 50 mg-pyg 20 mg-nettl 25 mg-pump 100 kf-vrvm-xt-Zn-Cu capsule (Prostate Control) 1 cap PO DAILY Supplement 10/22/23
Relaxium 1 cap PO HS Supplement 04/06/25
cholecalciferol (vitamin D3) 50 mcg (2,000 unit) capsule (Vitamin D3) 50 mcg PO DAILY Supplement 04/06/25
tamsulosin 0.4 mg capsule (Flomax) 0.4 mg PO QPM Urinary Issue 04/06/25
Review of Systems
-
History Source: Patient
A 12 point ROS was completed and negative except as noted: Yes
Abdomen/GI: Reports Nausea and Vomiting
Physical Exam
Vital Signs
Vital Signs
Temp Pulse Resp BP Pulse Ox
98.8 F 83 23 116/66 88
04/06/25 05:08 04/06/25 13:00 04/06/25 13:00 04/06/25 13:00 04/06/25 13:00
Physical Exam
General: Well Nourished and No Apparent Distress
HEENT: Anicteric and Moist mucous membranes
Respiratory: Clear and Non Labored Respirations; No Wheezes
Cardiac: S1/S2 and Regular Rhythm; No Tachycardia
Breast: Deferred by me
GI: Soft, Non Tender, Non Distended and Normal Bowel Sounds
Genito-urinary: No Grimaldo
Musculoskeletal: No Edema
Neuro: Awake, Alert, Oriented and AO x 3
Psych: Calm and Intact Judgment/Insight
Laboratory Results
-
04/06/25 05:20
04/06/25 05:20
Laboratory Results
Total Bilirubin 0.6 mg/dl (0.2-1.3) 04/06/25 05:20
AST 22 U/L (17-59) 04/06/25 05:20
ALT 17 U/L (0-50) 04/06/25 05:20
Alkaline Phosphatase 65 U/L (38-126) 04/06/25 05:20
Troponin I < 0.012 ng/ml 04/06/25 05:21
Data Reviewed
-
Lab Data: Labs Reviewed by me, Discussed with Patient and Discussed with Family
Impression/Plan
-
Ongoing nausea/vomiting and dizziness
Orthostatic positive in the ED
Continue with gentle hydration
CT head with no intracranial abnormality
Has been having outpatient workup with primary care provider resulting in abnormal blood smear. Oncology consulted here
Leukocytosis, continue to monitor
CT chest with negative for pulmonary embolism, does have ascending thoracic aorta aneurysm, stable at 4.7 cm.
Check abdomen/pelvis CT
Bladder scan
PT evaluation
SIRS (leukocytosis, tachycardia, tachypnea)
questionable pneumonitis on CT chest, continue to monitor. Denies cough
unclear source; check blood culture
History of BPH
Continue Flomax
History of hypertension
Currently blood pressure on lower end, hold ramipril
DVT prophylaxis
Lovenox
Full code
I spent a total of 77 minutes with the patient or on the floor. More than 50% of this time involved counseling and coordination of care.
--- NOTE | 2025-04-06 16:15 | PTCARENOTE ---
04/06- Patient transferred and oriented to unit without issue. AAOX3, Skin pale but CDI except for a mole in the L-groin. Teley #40, currently NSR. Denies any current needs.
--- NOTE | 2025-04-06 16:45 | PTOTSP ---
The patient is independent with ambulation and elevations, offering no concerns regarding mobility upon return home. No PT needs identified at this time, will sign off. The patient is aware our services are available if needs arise while
hospitalized.
[2025-04-06] MEDS: PROTONIX IV 40 MG IV (16:54)
[2025-04-06] MEDS: LOVENOX 40 MG SC (16:54)
[2025-04-06] MEDS: FLOMAX 0.4 MG PO (16:55)
[2025-04-06] MEDS: TYLENOL 650 MG PO (21:59)
[2025-04-06] MEDS: LIPITOR 10 MG PO (22:00)
[2025-04-06 22:53] LABS: Reticulocyte Count 1.2 % (0.4-2.8)
[2025-04-06 23:14] LABS: Iron 61 ug/dl (49-181); LDH 352 U/L (120-246)
[2025-04-06 23:50] LABS: Ferritin 292.0 ng/ml (17.9-464.0)
[2025-04-07] VITALS (7 sets, daily range): BP systolic 83–132; BP diastolic 56–74; PULSE 60–123; BMI 29.2
[2025-04-07 00:21] LABS: Folate 7.1 ng/ml (2.76-20); Vitamin B12 > 1000 pg/ml (239-931)
--- NOTE | 2025-04-07 00:35 | PTCARENOTE ---
Pt's plastic press molder alarming afib, increasing to 120s then back to 80s-90s while pt is lying in a recliner. No history of afib according to pt's chart and previous documentation. EKG completed showing sinus tachycardia with 1st degree AV block
and PVCs, lengthened NV interval. Will pass along to day shift RN.
[2025-04-07] MEDS: TYLENOL 650 MG PO ×2 (04:58→09:16)
[2025-04-07] MEDS: NSS 1000 IV (06:01)
[2025-04-07] MEDS: VITAMIN D3 (cholecalciferol) 50 MCG PO (07:30)
[2025-04-07] MEDS: PROTONIX IV 40 MG IV (07:30)
[2025-04-07 07:39] LABS: Hematocrit 37.5 % (39.0-52.0); Hemoglobin 11.7 g/dL (13.0-18.0); Mean Corp Hgb Conc. 31.2 g/dL (33.0-37.0); Mean Corpuscular Volume 91.9 fL (80.0-94.0); Red Cell Dist. Width 18.6 % (11.5-14.5)
[2025-04-07 08:14] LABS: ALT (SGPT) 20 U/L (0-50); AST (SGOT) 26 U/L (17-59); Albumin 3.9 g/dl (3.5-5.0); Alkaline Phosphatase 65 U/L (38-126); Blood Urea Nitrogen 11 mg/dl (9-20); Calcium 9.1 mg/dl (8.4-10.2); Carbon Dioxide 28 mmol/L (22-30); Chloride 117 mmol/L (98-107); Estimated Creatinine Clearance 63 ml/min; Glucose 140 mg/dl (70-99); Potassium 4.6 mmol/L (3.5-5.1); Sodium 152 mmol/L (135-145); Total Protein 6.6 g/dl (6.3-8.2); eGFR > 60.00
[2025-04-07 08:24] LABS: Absolute Neutrophils -Man Diff 12.1 10^3/uL (1.4-6.5)
[2025-04-07 08:25] LABS: Normal RBC Morphology Yes; Platelets Checked Yes; Total Cells Counted 100
--- NOTE | 2025-04-07 09:30 | PTCARENOTE ---
04/07- Patient is positive with orthostatic VS. Latest set, he fell from 113/65 to 89/62 with HR increasing from 84 to 123 upon sit to stand repositioning. He states mild dizziness upon standing. +PulsesX4. Patient has also been intermittently
AFib on Telemetry with self-resolve back to NSR. He also had 1 11second run of Funambol while walking around his room earlier this morning. Notified Physician of all of this. Physician ordered EKG which confirmed AFib in anterior leads. See further
orders. Continue to monitor.
[2025-04-07 11:19] LABS: Magnesium 2.3 mg/dl (1.6-2.3)
[2025-04-07] MEDS: TYLENOL 1000 MG PO ×2 (11:42→21:07)
[2025-04-07] MEDS: TYLENOL PO (11:42)
[2025-04-07] MEDS: LIDOCAINE 4% PATCH 1 PATCH TOPICAL (11:42)
--- NOTE | 2025-04-07 12:09 | W.PN.ONC ---
Documented by User: Nikki Montgomery MD, Resident 04/07/25 13:06
Today's Communication / Plan
-
Plan reviewed with attending.
Impression
Impression
79yoM presenting with lightheadedness and presyncopal episode with orthostatic hypotension with a few weeks history of abdominal pain, chills, weakness, and fatigue. Nausea, vomiting, and dizziness resolved. Pt described possible malaria exposure
decades ago without proper treatment.
Leukocytosis decreased to 13.4. Normocytic anemia stable at 11.7. Iron studies WNL retic 1.2 iron 61 ferritin 292 Folate 7.1 B12 >1000. LDH elevated 352. Outpt SPEP negative. [place] and Lambda light chains still pending. Tick panel pending.
Afebrile, vital signs stable. Chest, head, abd/pelvis CT unremarkable. TSH low 0.19
Plan
Plan
#normocytic anemia
Iron studies, Folate, B12, Reticulocyte count all normal. Follow CBC.
#Leukocytosis
Recommend ID consult
Tick borne panel pending. Consider testing for malaria
Few immature forms. Low suspicion for malignant process
#abdominal pain
Heme occult blood pending
Recommend GI consult to evaluate for possible source of anemia and abdominal pain if Hgb drops.
Subjective/Objective
Subjective/Objective
Overnight, pt reports no nausea or vomiting. Tolerating PO intake. Reports ambulation without difficulty or lightheadedness. Denies abdominal pain.
Pt explained a remote history of possible malaria when he was serving in [employer] that he was never fully treated for. He explained that every couple of years after he was there he would get sick again with cyclical fevers. He stated it eventually
stopped years ago and has not returned.
Vital Signs:
Vital Signs
Temp Pulse Resp BP Pulse Ox
98 F 61 18 109/61 93
04/07/25 11:47 04/07/25 11:47 04/07/25 11:47 04/07/25 11:47 04/07/25 11:47
Lab Results:
Laboratory Data
WBC 13.4 10^3/uL (4.8-10.8) H 04/07/25 06:59
Hgb 11.7 g/dL (13.0-18.0) L 04/07/25 06:59
Plt Count 10^3/uL (130-400) 04/07/25 06:59
eGFR > 60.00 04/07/25 06:59
Orders
Orders
Orders From Last 24 Hours
04/06/25 14:42
Stool for occult blood [Hemetest Stools] As Directed
04/06/25 22:35
Ehrlichia chaffeensis Ab Panel [S] Routine
Ferritin Routine
Folate Routine
Haptoglobin [S] Routine
Iron Routine
[place]/Lambda FLC Quant [S] Routine
LDH Routine
Lyme PCR, DNA [S] Routine
Reticulocyte Count Routine
Vitamin B12 Routine
Babesia Smear [Blood Parasites] Routine

Documented by User: YANA Coombs 04/07/25 13:53
Plan
Plan
#normocytic anemia
Iron studies, Folate, B12, Reticulocyte count all normal. Follow CBC.
#Leukocytosis
Recommend ID consult
Tick borne panel pending. Consider testing for malaria
Few immature forms. Low suspicion for malignant process
#abdominal pain
Heme occult blood pending
Recommend GI consult to evaluate for possible source of anemia and abdominal pain if Hgb drops.
Pt seen and examined. mild anemia and leukocytosis, check heme stool. no role for iron repletion with ferritin <200. No B12 or folate deficiency. Check heme stool. Parasite smear negative, ehrlichia and lyme are pending. ID consult placed for
further evaluation of 'weeks' of fever, chills, and fatigue in the setting of tick exposure and travel. YANA Carvalho
--- NOTE | 2025-04-07 12:45 | CON.CAR ---
Addendum entered and electronically signed by Kai Dotson MD 04/07/25 17:11:
Patient seen and examined in collaboration with PGY 2 resident; agree with below.
- 89-year-old male with hyperlipidemia, mild aortic regurgitation, and stable ascending aortic aneurysm (4.7 cm) presenting with near-syncope.
- The patient was found to be orthostatic.
- Exam: Heart regular rate and rhythm, normal S1-S2, no significant murmurs/rubs/gallops; lungs CTA bilaterally; no edema.
- A/P:
- Upon review of telemetry, the patient does not have ventricular tachycardia; it is artifact.
- The patient does not have paroxysmal atrial fibrillation on review of telemetry; he has frequent PACs and a brief run of atrial tachycardia. Recommend conservative management as this is likely to improve with volume resuscitation.
- Update echocardiogram; normal LVEF 05/2024. No evidence of heart failure on examination.
Original Note:
Documented by User: Raman Galloway MD, Resident 04/07/25 15:02
Consultation
Consultation Request
Date/Time Consultation Requested: 04/07/25
Date/Time Consultation Performed: 04/07/25
Reason for Consultation: ventricular tachycardia
Medical History
-
Chief Complaint: Syncope
History of Present Illness:
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 Earlier in the
morning around 2 to 3 AM yesterday, he woke up to use the washroom but he felt like he could not stand still and landed on the floor, patient remained conscious throughout and never hit his head. Denies feeling warmth or flushing before the
episode. He called his to call EMS services, he was noted to have a blood pressure of 75 and was brought to the ER for further evaluation. EKG done in the ER showed sinus arrhythmia. His blood pressure medications were held and he was
admitted for further evaluation.
Head CT done in the ER was normal, CT chest showed suspected pneumonitis and stable aortic aneurysm, abdominal CT did not show any acute pathology. He denies any chest pain, palpitations, fluttering, dyspnea, cough, fever or chills.
He has been having nausea before meals, meals are fine and he feels better after eating. He does have dry heaves at night. He was recently started on omeprazole by his PCP but that has not helped him much.
He is also being evaluated for abnormal blood counts by heme/onc.
Past Medical History
Past Medical History: HTN, Hypercholesterolemia and Other (Concern for agent orange exposure in [place] war)
Past Surgical History: Orthopedic (left hip replacement 2011, right hip replacement 2021, right wrist cyst removed)
Social History
Tobacco: Non-Smoker
Alcohol: Daily (1 or 2 drinks)
Drug: None
Personal:
Living: With Family
Employment: Other (A professor of chemistry)
Family History
Family History: Other (Father from pancreatic cancer at 72, mother had history of alcohol abuse, brother from colon cancer)
Allergies / Home Medications
Allergy/AdvReac Type Severity Reaction Status Date / Time
No Known Allergies Allergy Verified 04/06/25 05:07
�Medication �Instructions �Recorded �Confirmed �Type
atorvastatin 10 mg tablet (Lipitor) 10 mg PO HS High Cholesterol 10/22/23 04/06/25 History
zinivxklczo-cumdx-mch-vit C-Mn 500 1 tab PO BID Supplement 10/22/23 04/06/25 History
mg-400 mg-166.6 mg tablet (Flexi
Joint)
ramipril 5 mg capsule 5 mg PO BID Blood Pressure 10/22/23 04/06/25 History
saw palm 50 mg-pyg 20 mg-nettl 25 1 cap PO DAILY Supplement 10/22/23 04/06/25 History
mg-pump 100 md-lxhg-eu-Zn-Cu
capsule (Prostate Control)
Relaxium 1 cap PO HS Supplement 04/06/25 04/06/25 History
cholecalciferol (vitamin D3) 50 50 mcg PO DAILY Supplement 04/06/25 04/06/25 History
mcg (2,000 unit) capsule (Vitamin
D3)
tamsulosin 0.4 mg capsule (Flomax) 0.4 mg PO QPM Urinary Issue 04/06/25 04/06/25 History
Review of Systems
-
All other systems: Negative unless noted
Physical Exam
Vital Signs
Temp Pulse Resp BP Pulse Ox
98 F 61 18 109/61 93
04/07/25 11:47 04/07/25 11:47 04/07/25 11:47 04/07/25 11:47 04/07/25 11:47
Lab Results
04/07/25 06:59
Troponin I < 0.012 ng/ml 04/06/25 05:21
Pig-A-Juiwwbydpmi Pept 251 pg/ml 04/06/25 05:21
Physical Exam
General: No Apparent Distress and Comfortable
Respiratory: Clear; Negative Wheezes, Crackles or Rhonchi
Cardiac: S1/S2 and Regular Rhythm; Negative Murmur, Rub, Calf Tenderness or JVD
GI: Soft, Non Tender and Normal Bowel Sounds
Musculoskeletal: No Clubbing, No Cyanosis and No Edema
Skin: Warm and Dry
Neuro: Awake and AO x 3
Psych: Calm
Impression / Plan
-
Impression
Patient is a 79-year-old male, with past medical history significant for stable aortic aneurysm, aortic sclerosis, mixed hyperlipidemia, hypertension, prediabetes who is here for evaluation of syncopal episode.
His blood counts have dropped from 15.5 last year to 11.9 this admission, hemoglobin has remained stable around 11.7.
Normal vitamin B12 and folate levels, normal iron levels.
Recently returned from vacation, has been feeling off for the last 2 weeks with reported nausea before meals and feeling fine after meals and dry heaves at night.
Heme-onc evaluating for leukemias. Workup till now has been negative
Tick panel is pending
SPEP is pending
Cardiology consulted for V. tach episode and suspected atrial fibrillation.
Assessment/plan
#V. tachycardia
Patient does not have a true ventricular tachycardia
The telemetry strip was printed out and tracked, which suggests artifact rather than ventricular tachycardia
Potassium normal, magnesium normal-keep potassium greater than 4 and magnesium greater than 2
TSH 0.19
Patient has history of alcohol intake, dehydration and GI symptoms could be contributory
Noticed some Atrial tachycardia secondary to above
Would check serum amylase and lipase levels
#Syncope
Patient says this is his first syncopal episode, continue telemetry
Update echocardiogram to see if the aortic sclerosis has progressed to stenosis
Orthostatic vitals are positive-consider abdominal binder and compression stockings
The GI symptoms along with drop in hemoglobin, suggests acute anemia and that could have contributed to the syncope
Can consider Holter monitor on outpatient basis
#Hypertension
Ramipril on hold given positive orthostatic vitals
Monitor blood pressure and resume meds as able
#BPH
Stable on tamsulosin
#Hyperlipidemia
Stable on atorvastatin
#Prediabetes
Check HbA1c

Documented by User: Kai Dotson MD 04/07/25 17:07
Consultation
Consultation Request
Requesting Provider: Dr. Mendoza
Performing Provider: Dr. Dotson
Reason for Consultation: Ventricular tachycardia
Physical Exam
Physical Exam
HEENT: Anicteric
Breast: N/A
Impression / Plan
-
Impression
Patient is a 79-year-old male, with past medical history significant for stable aortic aneurysm, aortic sclerosis, mixed hyperlipidemia, hypertension, prediabetes who is here for evaluation of syncopal episode.
His blood counts have dropped from 15.5 last year to 11.9 this admission, hemoglobin has remained stable around 11.7.
Normal vitamin B12 and folate levels, normal iron levels.
Recently returned from vacation, has been feeling off for the last 2 weeks with reported nausea before meals and feeling fine after meals and dry heaves at night.
Heme-onc evaluating for leukemias. Workup till now has been negative
Tick panel is pending
SPEP is pending
Cardiology consulted for V. tach episode and suspected atrial fibrillation.
Assessment/plan
#V. tachycardia
Patient does not have a true ventricular tachycardia
The telemetry strip was printed out and tracked, which suggests artifact rather than ventricular tachycardia
Potassium normal, magnesium normal-keep potassium greater than 4 and magnesium greater than 2
TSH 0.19
Patient has history of alcohol intake, dehydration and GI symptoms could be contributory
Noticed some Atrial tachycardia secondary to above
Would check serum amylase and lipase levels
#Near-Syncope
Patient says this is his first syncopal episode, continue telemetry
Update echocardiogram to see if the aortic sclerosis has progressed to stenosis
Orthostatic vitals are positive-consider abdominal binder and compression stockings
The GI symptoms along with drop in hemoglobin, suggests acute anemia and that could have contributed to the syncope
Can consider Holter monitor on outpatient basis
#Hypertension
Ramipril on hold given positive orthostatic vitals
Monitor blood pressure and resume meds as able
#BPH
Stable on tamsulosin
#Hyperlipidemia
Stable on atorvastatin
#Prediabetes
Check HbA1c
Data Reviewed
-
EKG: Tracing Personally Visualized and interpreted (Telemetry reviewed: Artifact (not VT); paroxysmal atrial tachycardia (not PAF); PACs)
Labs: Labs Reviewed by me, Discussed with Physician and Discussed with Patient
--- NOTE | 2025-04-07 13:06 | W.PN.HOSP.TC ---
Today's Communication/Plan
-
Monitor vital signs and see plan
Echo
Continue with Pepcid and Protonix
Monitor Ortho's
Repeat BMP later today
Assessment / Plan
Assessment / Plan
General: Well Nourished and No Apparent Distress
HEENT: Anicteric and Moist mucous membranes
Respiratory: Clear and Non Labored Respirations; No Wheezes
Cardiac: S1/S2 and Regular Rhythm; No Tachycardia
GI: Soft, Non Tender, Non Distended and Normal Bowel Sounds
Genito-urinary: No Grimaldo
Musculoskeletal: No Edema
Neuro: Awake, Alert, Oriented and AO x 3
Psych: Calm and Intact Judgment/Insight
Ongoing nausea/vomiting and dizziness
Orthostatic positive
Continue with gentle hydration
CT head with no intracranial abnormality
Has been having outpatient workup with primary care provider resulting in abnormal blood smear. Oncology consulted here. lyme pending
Leukocytosis, continue to monitor
CT chest with negative for pulmonary embolism, does have ascending thoracic aorta aneurysm, stable at 4.7 cm.
abdomen/pelvis CT with heavily calcified abdominal aorta
Bladder scan
PT evaluation
Low TSH, normal free T4
Per patient seems like his symptoms improve after eating. Also does have GERD. Start PPI and H2 felicia and will monitor. If symptoms do not improve then will need GI evaluation
SIRS (leukocytosis, tachycardia, tachypnea)
questionable pneumonitis on CT chest, continue to monitor. Denies cough
unclear source; check blood culture pending
Hyponatremia
Repeat later today and if is still high then we will start D5 water
Overnight on telemetry waiting as A-fib, upon my review some strips clearly has P waves
Could be sinus tachycardia with PACs, given patient previous symptoms we will consult cardiology
Echo
History of BPH
Continue Flomax
History of hypertension
Currently blood pressure on lower end, hold ramipril
DVT prophylaxis
Lovenox
Full code
Anticipated Discharge: 24 - 48 hours
Subjective/Interval History
-
Date of Service: April 07, 2025
denies vomiting
Objective Data
-
Labs:
Laboratory Results
04/07/25 04/07/25
06:59 14:00
WBC 13.4 H
Hgb 11.7 L
Hct 37.5 L
Plt Count
Sodium 152 H D Pending
Potassium 4.6 Pending
Chloride 117 H Pending
Carbon Dioxide 28 Pending
BUN 11 Pending
Creatinine 1.0 Pending
Glucose 140 H Pending
Calcium 9.1 Pending
Total Bilirubin 0.5
AST 26
ALT 20
Alkaline Phosphatase 65
Vital Signs:
Vital Signs
Temp Pulse Resp BP Pulse Ox
98 F 61 18 109/61 93
04/07/25 11:47 04/07/25 11:47 04/07/25 11:47 04/07/25 11:47 04/07/25 11:47
I&O
04/06/25 04/07/25 04/08/25
06:59 06:59 06:59
Intake Total 1660 / 1660
Output Total 1600 / 1600 500 / 500
Balance -1600 / -1600 1160 / 1160
--- NOTE | 2025-04-07 15:24 | CON.ID ---
Consultation
-
Date/Time Consultation Requested: 04/07/2025 1346
Date/Time Consultation Performed: 04/07/2025 1515
Requesting Provider: Karis Wallace
Performing Provider: Dr. Pozo
Reason for Consultation: 'Chills'
Chief Complaint / Past History
History of Present Illness
Leroy Dennis is a 79-year-old man being evaluated at the request of Karis Wallace regarding possible tickborne infection. History is obtained from chart review, along with patient interview. Additional history was obtained from the patient's
and daughter who are at the bedside.
The patient has a past medical history significant only for aortic aneurysm and hyperlipidemia. Per history, he has been having episodes of nausea, vomiting and dizziness for the past 2 weeks. The family recently had traveled to the [facility] in
[place]. The patient recalls that approximately 2 days into his trip he felt ill with ongoing chills and had some dry heaves. He recalls that the chills persisted since the onset, but the nausea seemed to pass. On the day of admission, he
again developed nausea and vomiting, along with some dizziness. His reports that he had used the bathroom, and fell and became wedged requiring EMS to be called.
During this period of time he has had no rash. He has not had any fevers. He has not had any specific pain.
[place] [address] [place], and is often outdoors. He recalls no ticks on his body. There are no pets. There are no sick contacts.
Past History
Additional Past Medical History:
Aortic aneurysm
HLD
Additional Past Surgical History:
Bilateral hip replacement
Right wrist cyst removal
Allergy History:
No Known Allergies Allergy (Verified 04/06/25 05:07)
Medications Reviewed: Yes
Current Antibiotics:
None
Social History
Tobacco: Non-Smoker
Alcohol: None
Drug: None
Personal:
Living: With Family
Employment: Retired
Family History
Family History: Not Pertinent
Review of Systems
Vital Signs
Temp Pulse Resp BP Pulse Ox
98 F 61 18 109/61 93
04/07/25 11:47 04/07/25 11:47 04/07/25 11:47 04/07/25 11:47 04/07/25 11:47
Physical Exam
Physical Exam
Constitutional: No Acute Distress, Comfortable and Non-toxic
Eyes: No Conjunctival Hemorrhage and Sclera Anicteric
Oral: No Thrush and No Ulcers
Cardiovascular: Regular Rate and S1/S2; Negative S3/S4 or Murmur
Pulmonary: Clear; Negative Wheezes, Rales or Rhonchi
Gastrointestinal: Soft, Non Tender, Non Distended, Normal Bowel Sounds, No Rebound and No Guarding
Extremities: Negative Edema, Clubbing, Cyanosis, Erythema, Splinter Hemorrhage, Venous Insufficiency or Janeway Lesions
Musculoskeletal: Negative Joint Swelling or Joint Effusion
Skin: Warm and Dry; Negative Rash or Jaundice
Neurological: Awake, Alert and Oriented
Psychological: Calm
Lab / Diagnostic Study Results
04/07/25 06:59
Total Counted 100 04/07/25 06:59
Abs Neuts (Manual) 12.1 10^3/uL (1.4-6.5) H 04/07/25 06:59
Segmented Neutrophils 89 % (42-75) H 04/07/25 06:59
Band Neutrophils 2 % (0-3) 04/07/25 06:59
Lymphocytes (Manual) 7 % (20-51) L 04/07/25 06:59
Basophils (Manual) 2 % 04/06/25 05:20
Ur Squamous Epith Cells 3-5 /LPF (Few) 04/06/25 05:41
Microbiology Results
Micro:
04/06/25 22:35 Blood Parasites Smear - Final
Blood/Venous
04/06/25 22:50 Blood Culture - Pending
Blood/Venous
04/06/25 22:36 Blood Culture - Pending
Blood/Venous
Imaging:
04/06/2025 CT chest (PE study): no evidence for central pulmonary embolism. Aneurysmal dilatation of the ascending thoracic aorta is stable at 4.7 cm. Pulmonary vascular/interstitial markings are slightly prominent. Cardiomegaly with suspected
coronary artery calcifications noted. Please see full dictation for additional detail.
Assessment / Plan
Chills (without documented fever)
Nausea/vomiting
Leukocytosis
Hyponatremia
HTN
HLD
Recommendations:
At present, not clear whether there is an infectious process or not. Suspect leukocytosis may be reactive.
Blood cultures have been obtained; will follow
Blood parasite smear is negative.
Serology for tickborne illness likewise pending.
Would observe off antibiotics for now. Repeat blood cultures should the patient develop fever greater than 100.5 degrees.
Further recommendations as additional data is returned.
[2025-04-07 15:30] LABS: Blood Urea Nitrogen 10 mg/dl (9-20); Calcium 9.0 mg/dl (8.4-10.2); Carbon Dioxide 27 mmol/L (22-30); Chloride 114 mmol/L (98-107); Estimated Creatinine Clearance 63 ml/min; Glucose 172 mg/dl (70-99); Potassium 4.2 mmol/L (3.5-5.1); Sodium 148 mmol/L (135-145); eGFR > 60.00
[2025-04-07] MEDS: PEPCID 20 MG PO (17:19)
[2025-04-07] MEDS: FLOMAX 0.4 MG PO (17:19)
[2025-04-07] MEDS: LOVENOX 40 MG SC (17:19)
[2025-04-07 17:31] LABS: Amylase 48 U/L (30-110); Lipase 36 U/L (23-300)
[2025-04-07] MEDS: REMOVE LIDOCAINE PATCH 1 PATCH REMOVE (21:08)
[2025-04-07] MEDS: LIPITOR 10 MG PO (21:08)
[2025-04-07] MEDS: ZOFRAN 4 MG IV (23:07)
[2025-04-08] VITALS (8 sets, daily range): BP systolic 99–129; BP diastolic 55–72; PULSE 57–90; BMI 29.0
[2025-04-08] MEDS: TYLENOL 1000 MG PO ×3 (05:07→21:34)
[2025-04-08] MEDS: ZOFRAN 4 MG IV (05:27)
[2025-04-08] MEDS: PROTONIX IV 40 MG IV (07:50)
[2025-04-08] MEDS: PEPCID 20 MG PO ×2 (07:50→21:31)
[2025-04-08] MEDS: VITAMIN D3 (cholecalciferol) 50 MCG PO (07:50)
[2025-04-08] MEDS: LIDOCAINE 4% PATCH 1 PATCH TOPICAL (07:57)
--- NOTE | 2025-04-08 09:35 | W.PN.CD ---
Addendum entered and electronically signed by Kai Dotson MD 04/08/25 13:16:
Patient seen and examined in collaboration with PGY 2 resident; agree with below.
- No events overnight; no cardiac complaints.
- Exam: Heart regular rate and rhythm, normal S1-S2; lungs CTA bilaterally; abdomen soft; no edema.
- Echocardiogram today revealed normal LVEF and no change in overall cardiac function compared to previous.
- Assessment/Plan:
- Telemetry artifact (no VT).
- Orthostasis improving; do not resume ramipril.
- Benign PACs/PAT on telemetry.
- No further cardiac recommendations at this time; outpatient follow-up with Cardiology.
Original Note:
Documented by User: Raman Galloway MD, Resident 04/08/25 10:58
Today's Communication / Plan
-
Cardiology will sign off
Impression / Plan
-
Impression
Patient is a 79-year-old male, with past medical history significant for stable aortic aneurysm, aortic sclerosis, mixed hyperlipidemia, hypertension, prediabetes who is here for evaluation of syncopal episode.
His blood counts have dropped from 15.5 last year to 11.9 this admission, hemoglobin has remained stable around 11.7.
Normal vitamin B12 and folate levels, normal iron levels.
Recently returned from vacation, has been feeling off for the last 2 weeks with reported nausea before meals and feeling fine after meals and dry heaves at night.
Heme-onc evaluating for leukemias. Workup till now has been negative
Tick panel is pending
SPEP is pending
Cardiology consulted for V. tach episode and suspected atrial fibrillation.
Assessment/plan
#V. tachycardia
Patient does not have a true ventricular tachycardia
The telemetry strip was printed out and tracked, which suggests artifact rather than ventricular tachycardia
Potassium normal, magnesium normal-keep potassium greater than 4 and magnesium greater than 2
Sodium 148
TSH 0.19
Patient has history of alcohol intake, dehydration and GI symptoms could be contributory
Noticed some Atrial tachycardia secondary to above
Serum amylase and lipase normal
A1c pending
On telemetry review normal sinus arrhythmia, few atrial tachycardia runs,no A-fib or V. tach noted
#Near-Syncope
Patient says this is his first syncopal episode, continue telemetry
Update echocardiogram to see if the aortic sclerosis has progressed to stenosis
Orthostatic vitals are positive-consider abdominal binder and compression stockings
The GI symptoms along with drop in hemoglobin, suggests acute anemia and that could have contributed to the syncope
Can consider Holter monitor on outpatient basis
Echo 04/07/2025
SUMMARY
1. Normal biventricular size and systolic function without regional wall motion abnormality. LVEF 61%.
2. Dilated aortic root (4.8 cm) and ascending aorta (4.7 cm).
3. Mild to moderate aortic regurgitation.
4. Compared to prior TTE in May 2024, aortic regurgitation has progressed from mild to mild to moderate. Aortic size is stable.
#Hypertension
Ramipril on hold given positive orthostatic vitals
Monitor blood pressure and resume meds as able
#BPH
Stable on tamsulosin
#Hyperlipidemia
Stable on atorvastatin
#Prediabetes
Check HbA1c
Physical Exam
Vital Signs/Labs
Vital Signs
Temp Pulse Resp BP Pulse Ox
98.7 F 65 18 116/58 99
04/08/25 07:00 04/08/25 04:10 04/08/25 04:10 04/08/25 04:10 04/08/25 07:50
04/07/25 04/08/25 04/09/25
06:59 06:59 06:59
Actual Weight 92.306 kg 91.711 kg
Magnesium 2.3 mg/dl (1.6-2.3) 04/07/25 06:59
Free T4 0.86 ng/dl (0.78-2.19) 04/07/25 06:59
08/11/25
05:21
[id number] Pept 251
LAB Results
04/06/25
05:21
Troponin I < 0.012
Physical Exam
Constitutional: No acute distress and Comfortable
EENT: Moist mucous membranes
Cardiovascular: Rhythm & rate is regular, Pedal edema is absent, JVD pressure is normal, S1S2 is normal and Murmur/rub/gallop absent
Respiratory: Respiratory effort normal and Crackles Absent
GI: Soft, Non tender and Normal bowel sounds
Neuro/Psych: Alert and AO x 3
Data Reviewed
-
Date of Service: April 08, 2025

Documented by User: Kai Dotson MD 04/08/25 13:13
Impression / Plan
-
Impression
Patient is a 79-year-old male, with past medical history significant for stable aortic aneurysm, aortic sclerosis, mixed hyperlipidemia, hypertension, prediabetes who is here for evaluation of syncopal episode.
His blood counts have dropped from 15.5 last year to 11.9 this admission, hemoglobin has remained stable around 11.7.
Normal vitamin B12 and folate levels, normal iron levels.
Recently returned from vacation, has been feeling off for the last 2 weeks with reported nausea before meals and feeling fine after meals and dry heaves at night.
Heme-onc evaluating for leukemias. Workup till now has been negative
Tick panel is pending
SPEP is pending
Cardiology consulted for V. tach episode and suspected atrial fibrillation.
Assessment/plan
# Possible abnormal telemetry
Patient does not have a true ventricular tachycardia
The telemetry strip was printed out and tracked, which suggests artifact rather than ventricular tachycardia
Potassium normal, magnesium normal-keep potassium greater than 4 and magnesium greater than 2
Sodium 148
TSH 0.19
Patient has history of alcohol intake, dehydration and GI symptoms could be contributory
Noticed some Atrial tachycardia secondary to above
Serum amylase and lipase normal
A1c pending
On telemetry review normal sinus arrhythmia, few atrial tachycardia runs,no A-fib or V. tach noted
#Near-Syncope
Update echocardiogram to see if the aortic sclerosis has progressed to stenosis
Orthostatic vitals are positive-consider abdominal binder and compression stockings
The GI symptoms along with drop in hemoglobin, suggests acute anemia and that could have contributed to the syncope
Echo 04/07/2025
SUMMARY
1. Normal biventricular size and systolic function without regional wall motion abnormality. LVEF 61%.
2. Dilated aortic root (4.8 cm) and ascending aorta (4.7 cm).
3. Mild to moderate aortic regurgitation.
4. Compared to prior TTE in May 2024, aortic regurgitation has progressed from mild to mild to moderate. Aortic size is stable.
#Hypertension
Ramipril on hold given positive orthostatic vitals
Monitor blood pressure and resume meds as able
#BPH
Stable on tamsulosin
#Hyperlipidemia
Stable on atorvastatin
#Prediabetes
Check HbA1c
Data Reviewed
-
EKG: Tracing Personally Visualized and interpreted (Telemetry: Sinus rhythm)
Echo: Report Reviewed by me (LVEF 61%; mild to moderate AR)
Medical Tests (PFT, Pathology etc): Discussed with Physician and Discussed with Patient
Labs: Labs Reviewed by me
--- NOTE | 2025-04-08 09:37 | W.PN.ONC ---
Today's Communication / Plan
-
Plan reviewed with attending.
Impression
Impression
79yoM presenting with lightheadedness and presyncopal episode with orthostatic hypotension with a few weeks history of abdominal pain, chills, weakness, and fatigue. Nausea, vomiting, and dizziness resolved. Pt described possible malaria exposure
decades ago without proper treatment.
Tick panel pending. Afebrile, vital signs stable.
Plan
Plan
#normocytic anemia
Iron studies, Folate, B12, Reticulocyte count all normal. Follow CBC.
No role for iron repletion. Unless ferritin <200.
#Leukocytosis
ID recommends following tick borne panel.
Parasite smear negative.
Tick borne panel pending. Consider testing for malaria
Low suspicion for malignant process
#abdominal pain
Heme occult blood pending
Recommend GI consult to evaluate for possible source of anemia and abdominal pain if Hgb drops.
Pt seen and examined. Pt reports 1 episode of emesis this morning. Check heme stool.
Subjective/Objective
Subjective/Objective
Pt reports 1 episode of emesis this morning. Denies fevers or dizziness. Ambulating.
Vital Signs:
Vital Signs
Temp Pulse Resp BP Pulse Ox
98.7 F 65 18 116/58 99
04/08/25 07:00 04/08/25 04:10 04/08/25 04:10 04/08/25 04:10 04/08/25 07:50
Lab Results:
Laboratory Data
WBC 13.4 10^3/uL (4.8-10.8) H 04/07/25 06:59
Hgb 11.7 g/dL (13.0-18.0) L 04/07/25 06:59
Plt Count 10^3/uL (130-400) 04/07/25 06:59
eGFR > 60.00 04/07/25 13:45
[2025-04-08 09:38] LABS: Hematocrit 34.6 % (39.0-52.0); Hemoglobin 11.1 g/dL (13.0-18.0); Mean Corp Hgb Conc. 32.1 g/dL (33.0-37.0); Mean Corpuscular Volume 92.0 fL (80.0-94.0); Red Cell Dist. Width 18.5 % (11.5-14.5)
[2025-04-08 10:25] LABS: Absolute Neutrophils -Man Diff 12.2 10^3/uL (1.4-6.5); Platelets Checked Yes
[2025-04-08 10:26] LABS: ALT (SGPT) 21 U/L (0-50); AST (SGOT) 27 U/L (17-59); Albumin 3.8 g/dl (3.5-5.0); Alkaline Phosphatase 63 U/L (38-126); Blood Urea Nitrogen 9 mg/dl (9-20); Calcium 8.9 mg/dl (8.4-10.2); Carbon Dioxide 24 mmol/L (22-30); Chloride 111 mmol/L (98-107); Cortisol, Random 15.9 ug/dl; Estimated Creatinine Clearance 70 ml/min; Glucose 156 mg/dl (70-99); Normal RBC Morphology Yes; Potassium 4.6 mmol/L (3.5-5.1); Sodium 143 mmol/L (135-145); Total Cells Counted 100; Total Protein 6.4 g/dl (6.3-8.2); eGFR > 60.00
[2025-04-08 11:06] LABS: Glycohemoglobin (HgbA1c) 6.5 % (4.0-5.6)
--- NOTE | 2025-04-08 12:39 | W.PN.HOSP.TC ---
Today's Communication/Plan
-
Monitor vitals
See plan
GI evaluation
Continue with PPI, Pepcid
Monitor leukocytosis
Assessment / Plan
Assessment / Plan
General: Well Nourished and No Apparent Distress
HEENT: Anicteric and Moist mucous membranes
Respiratory: Clear and Non Labored Respirations; No Wheezes
Cardiac: S1/S2 and Regular Rhythm; No Tachycardia
GI: Soft, Non Tender, Non Distended and Normal Bowel Sounds
Genito-urinary: No Grimaldo
Musculoskeletal: No Edema
Neuro: Awake, Alert, Oriented and AO x 3
Psych: Calm and Intact Judgment/Insight
Ongoing nausea/vomiting and dizziness
Orthostatic positive, now improving
Continue with gentle hydration
CT head with no intracranial abnormality
Has been having outpatient workup with primary care provider resulting in abnormal blood smear. Oncology consulted here. lyme pending
Leukocytosis, continue to monitor
CT chest with negative for pulmonary embolism, does have ascending thoracic aorta aneurysm, stable at 4.7 cm.
abdomen/pelvis CT with heavily calcified abdominal aorta
Bladder scan
Low TSH, normal free T4
Per patient seems like his symptoms improve after eating. Also does have GERD. Started PPI and H2 felicia and will monitor. Symptoms still has not improved. GI consulted
SIRS (leukocytosis, tachycardia, tachypnea)
questionable pneumonitis on CT chest, continue to monitor. Denies cough
unclear source; check blood culture NGTD
ID following; monitor off antibiotics
Hypernatremia
resolved
Appears to have periods of atrial tachycardia
Cardiology signed off
Echo without acute changes
History of BPH
Continue Flomax
History of hypertension
Currently blood pressure on lower end, hold ramipril
DVT prophylaxis
Lovenox
Full code
Anticipated Discharge: Within 24 hours
Subjective/Interval History
-
Date of Service: April 08, 2025
denies pain
Objective Data
-
Labs:
Laboratory Results
04/08/25
08:54
WBC 14.1 H
Hgb 11.1 L
Hct 34.6 L
Plt Count
Sodium 143
Potassium 4.6
Chloride 111 H
Carbon Dioxide 24
BUN 9
Creatinine 0.9
Glucose 156 H
Calcium 8.9
Total Bilirubin 0.7
AST 27
ALT 21
Alkaline Phosphatase 63
Vital Signs:
Vital Signs
Temp Pulse Resp BP Pulse Ox
97.7 F 63 17 111/61 96
04/08/25 11:35 04/08/25 11:35 04/08/25 11:35 04/08/25 11:35 04/08/25 11:35
I&O
04/07/25 04/08/25 04/09/25
06:59 06:59 06:59
Intake Total 2140 / 2140
Output Total 1600 / 1600 500 / 500
Balance -1600 / -1600 1640 / 1640
[2025-04-08] MEDS: TYLENOL PO (12:55)
--- NOTE | 2025-04-08 13:25 | CON.GI ---
Addendum entered and electronically signed by Brendon Winn MD 04/09/25 10:07:
I saw and examined the patient on 04/09/25 at 6:30 am
The [employer] MANAGER or PA's note was reviewed and I agree with the note.
Comment:
Pt is a 79 y/o man with a hx of hypotension admitted with presyncope. He states he feels nauseated if he doesn't eat but food resolves his symptoms. No overt vomiting. no bleeding
abd: soft, nontender
impression:
post infectious function d/o vs PUD vs gastroparesis
plan:
antiemetics
PPI
EGD
if negative would do outpatient GES if symptoms persist but not as inpatient.
small frequent meals in hospital
Original Note:
Consultation
-
Date/Time Consultation Requested: 04/08/25 1245
Date/Time Consultation Performed: 04/08/25 1325
Requesting Provider: Reyes Mendoza MD
Performing Provider: YANA Pelayo, Brendon Winn MD
Reason for Consultation: nausea/abdominal pain
Medical History
Chief Complaint / HPI
Chief Complaint: nausea/dry heaves
History of Present Illness:
Pt is a 79yo with hx hypercholesterolemia, aortic aneurysm, seasonal allergies, agent orange exposure , possible malaria exposure with treatment in past, BPH, prior ortho and mohs surgery presents with nausea and vomiting for 2 weeks with
presyncope and dizziness. Prior to admission was found on bathroom floor with hypotension and complaints of chills. On admission noted with WBC 14,100, hbg 11.1, platelets not reported, glucose 120-170 with hbg A1C 6.5, TSH 0.19 with normal T4,
Na up to [address] 04/06 with No acute findings within the abdomen or pelvis. Heavily calcified, ectatic abdominal aorta measuring 2.5 cm. mild CM parapelvic cyst. Infectious work up with blood cx, UA neg and Chest CT cannot
exclude mild interstitial edema or pneumonitis. blood parasite smear, lyme pending. HCT negative. Pt has been seen by ID, cardiology, oncology with etiology of symptoms unclear.
In review with patient and family concern for feeling of queasiness with nausea and mostly dry heaves and small amount of emesis every few days. symptoms worse at night. Worse on empty stomach but then improved with eating. Symptoms started
several weeks ago when he was in [place] at the beach and admits to some seafood ingestion after symptoms started. he also admits to GERD without improvement with PPI. Pt admits to back pain since admission possibly related to bed in
hospital. He denies diarrhea, constipation, blood or black in stools. + wt loss 20 lbs in past week. No NSAID use. hx tic bite in December with several days of antibiotics. No new medications. No prior EGD. hx colonoscopy 2020.
Past Medical History
Past Medical History: Hypercholesterolemia and Other (allergies, agent orange exposure , BPH, aortic aneurysm, possible malaria exposure in past )
Past Surgical History: Orthopedic (THR left 2011/right 2021, wrist cyst removal) and Other (mohs surgery on back )
Social History
Tobacco: Non-Smoker
Alcohol: None
Drug: None
Personal:
Living: With Family
Family History
Family History: Other (brother with colon CA )
Allergies / Home Medications
Allergy/AdvReac Type Severity Reaction Status Date / Time
No Known Allergies Allergy Verified 04/06/25 05:07
�Medication �Instructions �Recorded
atorvastatin 10 mg tablet (Lipitor) 10 mg PO HS High Cholesterol 10/22/23
ksxssotipjt-vmajq-xqo-vit C-Mn 500 1 tab PO BID Supplement 10/22/23
mg-400 mg-166.6 mg tablet (Flexi
Joint)
ramipril 5 mg capsule 5 mg PO BID Blood Pressure 10/22/23
saw palm 50 mg-pyg 20 mg-nettl 25 1 cap PO DAILY Supplement 10/22/23
mg-pump 100 cs-yfja-ki-Zn-Cu
capsule (Prostate Control)
Relaxium 1 cap PO HS Supplement 04/06/25
cholecalciferol (vitamin D3) 50 50 mcg PO DAILY Supplement 04/06/25
mcg (2,000 unit) capsule (Vitamin
D3)
tamsulosin 0.4 mg capsule (Flomax) 0.4 mg PO QPM Urinary Issue 04/06/25
Review of Systems
-
History Source: Patient and Family
Constitutional: Reports Weight Loss and Chills
EENT: Reports No Symptoms
Respiratory: Reports No Symptoms
Abdomen/GI: Reports Nausea and Vomiting (small volume, dry heaves with abdominal queasiness )
: Reports No Symptoms
Musculoskeletal: Reports Other (back pain)
Skin: Reports Rash (chronic back acne type rash )
Neurological: Reports Dizzy and Weakness
Endocrine: Reports No Symptoms
Hematologic/Lymphatic: Reports No Symptoms
Vital Signs
Temp Pulse Resp BP Pulse Ox
97.7 F 63 17 111/61 96
04/08/25 11:35 04/08/25 11:35 04/08/25 11:35 04/08/25 11:35 04/08/25 11:35
Physical Exam
Exam
General: Well Developed, Well Nourished and No Apparent Distress
HEENT: Normocephalic and Anicteric
Respiratory: Clear
Cardiac: Regular Rhythm
GI: Soft, Non Tender and Non Distended
Musculoskeletal: No Clubbing and No Cyanosis
Skin: Warm and Dry
Neuro: Awake, Alert and AO x 3
Psych: Calm
Results
WBC 14.1 10^3/uL (4.8-10.8) H 04/08/25 08:54
Hgb 11.1 g/dL (13.0-18.0) L 04/08/25 08:54
Hct 34.6 % (39.0-52.0) L 04/08/25 08:54
MCV 92.0 fL (80.0-94.0) 04/08/25 08:54
Plt Count 10^3/uL (130-400) 04/08/25 08:54
Sodium 143 mmol/L (135-145) 04/08/25 08:54
Potassium 4.6 mmol/L (3.5-5.1) 04/08/25 08:54
Chloride 111 mmol/L (98-107) H 04/08/25 08:54
Carbon Dioxide 24 mmol/L (22-30) 04/08/25 08:54
BUN 9 mg/dl (9-20) 04/08/25 08:54
Creatinine 0.9 mg/dL (0.7-1.3) 04/08/25 08:54
Calcium 8.9 mg/dl (8.4-10.2) 04/08/25 08:54
Total Bilirubin 0.7 mg/dl (0.2-1.3) 04/08/25 08:54
AST 27 U/L (17-59) 04/08/25 08:54
ALT 21 U/L (0-50) 04/08/25 08:54
Alkaline Phosphatase 63 U/L (38-126) 04/08/25 08:54
Amylase Cancelled 04/07/25 15:02
Lipase Cancelled 04/07/25 15:02
Diagnostic Image Results:
04/06/25 CT Chest PE Study
No evidence of central pulmonary embolism. Evaluation of some of the more peripheral pulmonary arterial branches somewhat limited as a result of artifact.
Aneurysmal dilatation of the ascending thoracic aorta, stable at 4.7 cm.
Pulmonary vascular/interstitial markings slightly prominent, cannot exclude mild interstitial edema or pneumonitis.
Cardiomegaly with suspected coronary artery calcifications.
04/06/25 HCT
No acute intracranial abnormality.
04/06/25 CT Abd/pel W Iv And Oral Contr
1. No acute findings within the abdomen or pelvis.
2. Heavily calcified, ectatic abdominal aorta measuring 2.5 cm.
3. Additional findings above.
Prior GI Procedures:
EGD: none
Colonoscopy: 2020 ahmad - One 6 mm polyp in the transverse colon, removed with
a cold snare. Complete resection. Polyp tissue not
retrieved.
- Internal hemorrhoids.
bx with food partical and bacteria cluster no mucosa
Assessment / Plan
-
Pt is a 79yo with hx hypercholesterolemia, aortic aneurysm, seasonal allergies, agent orange exposure , possible malaria exposure with treatment in past, BPH, prior ortho and mohs surgery presents with nausea and vomiting for 2 weeks with
presyncope and dizziness. Prior to admission was found on bathroom floor with hypotension and complaints of chills. On admission noted with WBC 14,100, hbg 11.1, platelets not reported, glucose 120-170 with hbg A1C 6.5, TSH 0.19 with normal T4.
CT 04/06 with No acute findings within the abdomen or pelvis. Heavily calcified, ectatic abdominal aorta measuring 2.5 cm. mild CM parapelvic cyst. Infectious work up with blood cx, UA neg and Chest CT cannot exclude mild interstitial edema or
pneumonitis. blood parasite smear, lyme pending. HCT negative. Pt has been seen by ID, cardiology, oncology with etiology of symptoms unclear.
In review with patient and family concern for feeling of queasiness with nausea and mostly dry heaves and small amount of emesis every few days. symptoms worse at night. Worse on empty stomach but then improved with eating. Symptoms started
several weeks ago when he was in [place] at the beach and admits to some seafood ingestion after symptoms started. he also admits to GERD without improvement with PPI. Pt admits to back pain since admission possibly related to bed in
hospital. + wt loss 20 lbs in past week. No NSAID use. hx tic bite in December with several days of antibiotics. No new medications. No prior EGD. hx colonoscopy 2020.
-nausea/dry heaves with queasiness x 3 weeks
-chills
-hypotension/dizziness/syncope prior to admission
-wt loss
-leukocytosis
-mild anemia
-possible pneumonitis on CT chest
-mild hbg AIC elevation and FBS 120-170
-possible VT -s/p cards eval
-back pain since admission
-hypernatremia after admission now corrected
other med problems:
- hypercholesterolemia
-aortic aneurysm
- seasonal allergies
- agent orange exposure
- possible malaria exposure with treatment in past
- BPH
-prior ortho and mohs surgery
-hx benign colon polyp, family hx colon Ca
PLAN:
etiology of symptoms related to viral illness, underlying DM with mild gastroparesis, vs other
will review with Dr. Winn for EGD -- low yield but with wt loss and neg CT consider to rule out PUD, H pylori vs other
will allow low residue diet as tolerated
await heme and ID work up
maintain hydration
management with elevated FBS and mild hbgA1C elevation per medical team
cont PPI and change pepcid to HS dosing
currently on RTC tylenol with back pain
-
-
Thank you for consultation and allowing me to participate in the patient's care. Please call the probation manager GI physician during the after hours with any questions or concerns.
--- NOTE | 2025-04-08 16:12 | W.PN.ID1 ---
Date of Service
Date of Service: April 08, 2025
Today's Communication
Observe off antibiotics
Assessment / Plan
Chills (without documented fever)
Nausea/vomiting
Leukocytosis
Hyponatremia
HTN
HLD
Recommendations:
At present, not clear whether there is an infectious process or not. Suspect leukocytosis may be reactive.
Blood cultures have been obtained; will follow
Blood parasite smear is negative.
Serology for tickborne illness pending.
Would continue to observe off antibiotics for now. Repeat blood cultures should the patient develop fever greater than 100.5 degrees.
Further recommendations as additional data is returned.
Chief Complaint
-: Leukocytosis
Subjective / Review of Systems
Review of Systems: No Fever, No Chills, Nausea and Vomiting
Vital Signs / Physical Exam
Vital Signs
Vital Signs
Temp Pulse Resp BP Pulse Ox
97.7 F 63 17 111/61 96
04/08/25 11:35 04/08/25 11:35 04/08/25 11:35 04/08/25 11:35 04/08/25 11:35
Physical Exam
Constitutional: No Acute Distress and Comfortable
Eyes: No Conjunctival Hemorrhage and Sclera Anicteric
Cardiovascular: S1/S2; Negative S3/S4
Pulmonary: Non Labored
Gastrointestinal: Soft, Non Tender and Non Distended
Extremities: Negative Edema, Cyanosis or Erythema
Neurological: Awake and Alert
Psychological: Calm
Objective Data
Lab Data
Lab Results
04/08/25 08:54
04/08/25 08:54
Estimated Creat Clear 70 ml/min 04/08/25 08:54
Total Bilirubin 0.7 mg/dl (0.2-1.3) 04/08/25 08:54
AST 27 U/L (17-59) 04/08/25 08:54
ALT 21 U/L (0-50) 04/08/25 08:54
Alkaline Phosphatase 63 U/L (38-126) 04/08/25 08:54
Amylase Cancelled 04/07/25 15:02
Most recent labs reviewed.
Micro Results:
04/06/25 22:50 Blood Culture - Preliminary
Blood/Venous No Growth in 24 hours- Final report to follow
04/06/25 22:36 Blood Culture - Preliminary
Blood/Venous No Growth in 24 hours- Final report to follow
04/06/25 22:35 Blood Parasites Smear - Final
Blood/Venous
Imaging:
04/06/2025 CT chest (PE study): no evidence for central pulmonary embolism. Aneurysmal dilatation of the ascending thoracic aorta is stable at 4.7 cm. Pulmonary vascular/interstitial markings are slightly prominent. Cardiomegaly with suspected
coronary artery calcifications noted. Please see full dictation for additional detail.
[2025-04-08] MEDS: LOVENOX 40 MG SC (17:17)
[2025-04-08] MEDS: FLOMAX 0.4 MG PO (17:17)
[2025-04-08] MEDS: REMOVE LIDOCAINE PATCH 1 PATCH REMOVE (20:38)
[2025-04-08] MEDS: LIPITOR 10 MG PO (21:34)
[2025-04-09] VITALS (12 sets, daily range): BP systolic 14–138; BP diastolic 53–91; PULSE 90–128; BMI 30.1
[2025-04-09] MEDS: TYLENOL 1000 MG PO ×3 (04:16→20:07)
[2025-04-09] MEDS: LIDOCAINE 4% PATCH 1 PATCH TOPICAL (07:50)
[2025-04-09] MEDS: PROTONIX IV 40 MG IV (07:50)
[2025-04-09] MEDS: VITAMIN D3 (cholecalciferol) 50 MCG PO (07:51)
[2025-04-09 08:27] LABS: Hematocrit 34.6 % (39.0-52.0); Hemoglobin 11.1 g/dL (13.0-18.0); Mean Corp Hgb Conc. 32.1 g/dL (33.0-37.0); Mean Corpuscular Volume 90.1 fL (80.0-94.0); Nucleated Red Blood Cells % 0 % (-); Platelet Count 306 10^3/uL (130-400); Red Cell Dist. Width 18.1 % (11.5-14.5)
[2025-04-09 08:41] LABS: ALT (SGPT) 19 U/L (0-50); AST (SGOT) 22 U/L (17-59); Albumin 3.4 g/dl (3.5-5.0); Alkaline Phosphatase 63 U/L (38-126); Blood Urea Nitrogen 13 mg/dl (9-20); Calcium 8.9 mg/dl (8.4-10.2); Carbon Dioxide 29 mmol/L (22-30); Chloride 109 mmol/L (98-107); Estimated Creatinine Clearance 78 ml/min; Glucose 96 mg/dl (70-99); Potassium 4.9 mmol/L (3.5-5.1); Sodium 141 mmol/L (135-145); Total Protein 6.1 g/dl (6.3-8.2); eGFR > 60.00
--- NOTE | 2025-04-09 09:02 | W.PN.ONC ---
Today's Communication / Plan
-
Plan reviewed with attending
Impression
Impression
79yoM presenting with lightheadedness and presyncopal episode with orthostatic hypotension with a few weeks history of abdominal pain, chills, weakness, and fatigue. Nausea, vomiting, and dizziness resolved. Pt described possible malaria exposure
decades ago without proper treatment.
Tick panel pending. Afebrile, vital signs stable.
Plan
Plan
#normocytic anemia
Iron studies, Folate, B12, Reticulocyte count all normal. Follow CBC.
No role for iron repletion. Unless ferritin <200.
#Leukocytosis
Parasite smear negative.
Tick borne panel pending. Consider testing for malaria
Low suspicion for malignant process
#abdominal pain
Heme occult blood pending
GI plans on doing endoscopy today.
Pt seen and examined. There are no further oncologic interventions at this time. Please reach out for any questions or concerns.
Subjective/Objective
Subjective/Objective
Vital Signs:
Vital Signs
Temp Pulse Resp BP Pulse Ox
97.6 F 68 16 120/71 92
04/09/25 07:37 04/09/25 07:37 04/09/25 07:37 04/09/25 07:37 04/09/25 07:37
Lab Results:
Laboratory Data
WBC 12.3 10^3/uL (4.8-10.8) H 04/09/25 07:41
Hgb 11.1 g/dL (13.0-18.0) L 04/09/25 07:41
Plt Count 306 10^3/uL (130-400) D 04/09/25 07:41
eGFR > 60.00 04/09/25 07:41
--- NOTE | 2025-04-09 11:31 | CM ---
Chart reviewed. Care ongoing at this time.
Observing off abx per ID
GI planning for endoscopy today per oncology
No skilled needs per therapy
Plan: Home, no needs anticipated at this time
--- NOTE | 2025-04-09 12:53 | W.PN.UPDATE ---
Update Note
Progress Note Update
EGD: small hiatal hernia otherwise normal.
During procedure pt went into what appeared to be PAF, when he became tachycardic he did drop his blood pressure
anesthesia need to give medications to raise his BP. will get EKG if possible
--- NOTE | 2025-04-09 12:58 | W.PN.HOSP.TC ---
Today's Communication/Plan
-
Monitor vital signs and see plan
EGD today
Cardiology to reevaluate the rhythm
Assessment / Plan
Assessment / Plan
General: Well Nourished and No Apparent Distress
HEENT: Anicteric and Moist mucous membranes
Respiratory: Clear and Non Labored Respirations; No Wheezes
Cardiac: S1/S2 and Regular Rhythm; No Tachycardia
GI: Soft, Non Tender, Non Distended and Normal Bowel Sounds
Genito-urinary: No Grimaldo
Musculoskeletal: No Edema
Neuro: Awake, Alert, Oriented and AO x 3
Psych: Calm and Intact Judgment/Insight
Ongoing nausea/vomiting and dizziness
Orthostatic positive, now improving
Continue with gentle hydration
CT head with no intracranial abnormality
Has been having outpatient workup with primary care provider resulting in abnormal blood smear. Oncology consulted here. lyme pending
Leukocytosis, continue to monitor
CT chest with negative for pulmonary embolism, does have ascending thoracic aorta aneurysm, stable at 4.7 cm.
abdomen/pelvis CT with heavily calcified abdominal aorta
Bladder scan
Low TSH, normal free T4
Per patient seems like his symptoms improve after eating. Also does have GERD. Started PPI and H2 felicia and will monitor. Symptoms still has not improved. GI following. EGD 04/09 with small lateral hernia otherwise normal. During the
procedure per GI patient appeared to vent into proximal atrial fibrillation with tachycardia. Will get EKG. Will discuss with cardiology
SIRS (leukocytosis, tachycardia, tachypnea)
questionable pneumonitis on CT chest, continue to monitor. Denies cough
unclear source; check blood culture NGTD
ID following; monitor off antibiotics
Hypernatremia
resolved
Appears to have periods of atrial tachycardia
Cardiology signed off; During EGD procedure pt went into what appeared to be PAF, when he became tachycardic he did drop his blood pressure
anesthesia need to give medications to raise his BP. will get EKG if possible
Cardiology notified
Echo without acute changes
History of BPH
Continue Flomax
History of hypertension
Currently blood pressure on lower end, hold ramipril
DVT prophylaxis
Lovenox
Full code
Anticipated Discharge: Within 24 hours
Subjective/Interval History
-
Date of Service: April 09, 2025
denies pain
Objective Data
-
Labs:
Laboratory Results
04/09/25
07:41
WBC 12.3 H
Hgb 11.1 L
Hct 34.6 L
Plt Count 306 D
Sodium 141
Potassium 4.9
Chloride 109 H
Carbon Dioxide 29
BUN 13
Creatinine 0.9
Glucose 96
Calcium 8.9
Total Bilirubin 0.7
AST 22
ALT 19
Alkaline Phosphatase 63
Vital Signs:
Vital Signs
Temp Pulse Resp BP Pulse Ox
98.4 F 113 18 138/91 95
04/09/25 11:39 04/09/25 11:39 04/09/25 11:39 04/09/25 11:39 04/09/25 11:39
I&O
04/08/25 04/09/25 04/10/25
06:59 06:59 06:59
Intake Total 2139 / 2139
Output Total 500 / 500
Balance 1640 / 1640 2039
--- NOTE | 2025-04-09 13:03 | W.PN.UPDATE ---
Update Note
Progress Note Update
EGD with small hiatal hernia
During procedure pt appeared to have PAF with dropping his bp when tachycardic requiring treatment
will order EKG we have strips
GI plan;
f/u biopsies
PPI, antiemetics
I don't think he has a primary GI issue
if it persists would do outpatient gastric emptying study.
will sign off call with questions
--- NOTE | 2025-04-09 13:49 | W.PN.UPDATE ---
Update Note
Progress Note Update
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
- Will arrange a 30-day outpatient R[employer] heart monitor.
- Patient can follow-up with Cardiology as an outpatient.
[2025-04-09 14:28] LABS: Free Kappa Light Chains,Quant 20.91 mg/L (3.30-19.40); Free Lambda Light Chains,Quant 14.09 mg/L (5.71-26.30); Kappa/Lambda Fr Light Ratio 1.48 (0.26-1.65)
--- NOTE | 2025-04-09 16:50 | W.PN.ID1 ---
Date of Service
Date of Service: April 09, 2025
Today's Communication
Observe off antibiotics.
Assessment / Plan
Chills (without documented fever)
Nausea/vomiting
Leukocytosis
Hyponatremia
HTN
HLD
Recommendations:
To date, no infectious process discovered. Suspect leukocytosis may be reactive.
Blood cultures remain negative.
Blood parasite smear is negative.
Serology for tickborne illness pending.
Would continue to observe off antibiotics for now. Repeat blood cultures should the patient develop fever greater than 100.5 degrees.
����������������������������������������������������������
Chief Complaint
-: Leukocytosis
Subjective / Review of Systems
Review of Systems: No Fever, Chills and No Abdominal Pain
Vital Signs / Physical Exam
Vital Signs
Vital Signs
Temp Pulse Resp BP Pulse Ox
97.9 F 106 16 137/75 92
04/09/25 14:31 04/09/25 14:31 04/09/25 14:31 04/09/25 14:31 04/09/25 14:31
Physical Exam
Constitutional: No Acute Distress and Comfortable
Eyes: No Conjunctival Hemorrhage and Sclera Anicteric
Cardiovascular: S1/S2; Negative S3/S4
Pulmonary: Non Labored
Gastrointestinal: Soft, Non Tender and Non Distended
Extremities: Negative Edema, Cyanosis or Erythema
Neurological: Awake and Alert
Psychological: Calm
Objective Data
Lab Data
Lab Results
04/09/25 07:41
04/09/25 07:41
Estimated Creat Clear 78 ml/min 04/09/25 07:41
Total Bilirubin 0.7 mg/dl (0.2-1.3) 04/09/25 07:41
AST 22 U/L (17-59) 04/09/25 07:41
ALT 19 U/L (0-50) 04/09/25 07:41
Alkaline Phosphatase 63 U/L (38-126) 04/09/25 07:41
Amylase Cancelled 04/07/25 15:02
Most recent labs reviewed.
Micro Results:
04/06/25 22:50 Blood Culture - Preliminary
Blood/Venous No Growth in 48 hours- Final report to follow
04/06/25 22:36 Blood Culture - Preliminary
Blood/Venous No Growth in 48 hours- Final report to follow
04/06/25 22:35 Blood Parasites Smear - Final
Blood/Venous
Imaging:
04/06/2025 CT chest (PE study): no evidence for central pulmonary embolism. Aneurysmal dilatation of the ascending thoracic aorta is stable at 4.7 cm. Pulmonary vascular/interstitial markings are slightly prominent. Cardiomegaly with suspected
coronary artery calcifications noted. Please see full dictation for additional detail.
[2025-04-09] MEDS: FLOMAX 0.4 MG PO (18:17)
[2025-04-09] MEDS: LOVENOX 40 MG SC (18:18)
[2025-04-09] MEDS: LIPITOR 10 MG PO (20:07)
[2025-04-09] MEDS: REMOVE LIDOCAINE PATCH 1 PATCH REMOVE (20:07)
[2025-04-09] MEDS: PEPCID 20 MG PO (20:07)
[2025-04-10 03:11] LABS: Lyme Disease DNA by PCR Not Detected; Lyme Source Serum
[2025-04-10 03:25] VITALS: BP 115/59
[2025-04-10] MEDS: ZYRTEC 10 MG PO (03:31)
[2025-04-10] MEDS: HYDROCORTISONE 2.5% CREAM 1 APPLIC TOPICAL (04:00)
[2025-04-10] MEDS: TYLENOL PO (05:20)
[2025-04-10 06:00] VITALS: BMI 29.6
[2025-04-10 07:00] VITALS: BP 136/68
[2025-04-10 07:38] LABS: Hematocrit 32.5 % (39.0-52.0); Hemoglobin 10.6 g/dL (13.0-18.0); Mean Corp Hgb Conc. 32.6 g/dL (33.0-37.0); Mean Corpuscular Volume 89.8 fL (80.0-94.0); Platelet Count 285 10^3/uL (130-400); Red Cell Dist. Width 17.9 % (11.5-14.5)
[2025-04-10 08:07] LABS: ALT (SGPT) 23 U/L (0-50); AST (SGOT) 24 U/L (17-59); Albumin 3.3 g/dl (3.5-5.0); Alkaline Phosphatase 66 U/L (38-126); Blood Urea Nitrogen 14 mg/dl (9-20); Calcium 8.7 mg/dl (8.4-10.2); Carbon Dioxide 30 mmol/L (22-30); Chloride 108 mmol/L (98-107); Estimated Creatinine Clearance 70 ml/min; Glucose 85 mg/dl (70-99); Potassium 4.5 mmol/L (3.5-5.1); Sodium 141 mmol/L (135-145); Total Protein 5.8 g/dl (6.3-8.2); eGFR > 60.00
[2025-04-10] MEDS: LIDOCAINE 4% PATCH 1 PATCH TOPICAL (08:34)
[2025-04-10] MEDS: VITAMIN D3 (cholecalciferol) 50 MCG PO (08:34)
[2025-04-10] MEDS: PROTONIX IV 40 MG IV (08:35)
[2025-04-10 08:36] LABS: Absolute Neutrophils -Man Diff 7.3 10^3/uL (1.4-6.5)
[2025-04-10 08:37] LABS: Normal RBC Morphology No; Platelets Checked Yes
[2025-04-10 08:38] LABS: Anisocytosis Slight; Hypochromasia 1+; Polychromasia 1+; Target Cells FEW; Total Cells Counted 100
--- NOTE | 2025-04-10 08:55 | W.PN.ID1 ---
Date of Service
Date of Service: April 10, 2025
Today's Communication
Sign off
Assessment / Plan
Chills (without documented fever)
Nausea/vomiting
Leukocytosis
Hyponatremia
HTN
HLD
Recommendations:
To date, no infectious process discovered. Suspect leukocytosis may be reactive. Leukocytosis overall improved.
Blood cultures remain negative.
Blood parasite smear is negative.
Serology for tickborne illness pending.
No discernible infectious process at present.
Will sign off and see again at your request.
����������������������������������������������������������
Chief Complaint
-: Leukocytosis
Subjective / Review of Systems
Review of Systems: No Fever and No Chills
Vital Signs / Physical Exam
Vital Signs
Vital Signs
Temp Pulse Resp BP Pulse Ox
97.5 F 60 16 115/59 94
04/10/25 03:25 04/10/25 03:25 04/10/25 03:25 04/10/25 03:25 04/10/25 03:25
Physical Exam
Constitutional: No Acute Distress and Comfortable
Eyes: Sclera Anicteric
Pulmonary: Non Labored
Gastrointestinal: Non Distended
Extremities: Negative Edema, Cyanosis or Erythema
Neurological: Awake and Alert
Psychological: Calm
Objective Data
Lab Data
Lab Results
04/10/25 07:06
04/10/25 07:06
Estimated Creat Clear 70 ml/min 04/10/25 07:06
Total Bilirubin 0.7 mg/dl (0.2-1.3) 04/10/25 07:06
AST 24 U/L (17-59) 04/10/25 07:06
ALT 23 U/L (0-50) 04/10/25 07:06
Alkaline Phosphatase 66 U/L (38-126) 04/10/25 07:06
Amylase Cancelled 04/07/25 15:02
Most recent labs reviewed.
Micro Results:
04/06/25 22:50 Blood Culture - Preliminary
Blood/Venous No Growth in 72 hours- Final report to follow
04/06/25 22:36 Blood Culture - Preliminary
Blood/Venous No Growth in 72 hours- Final report to follow
04/06/25 22:35 Blood Parasites Smear - Final
Blood/Venous
Imaging:
04/06/2025 CT chest (PE study): no evidence for central pulmonary embolism. Aneurysmal dilatation of the ascending thoracic aorta is stable at 4.7 cm. Pulmonary vascular/interstitial markings are slightly prominent. Cardiomegaly with suspected
coronary artery calcifications noted. Please see full dictation for additional detail.
[2025-04-10 10:19] LABS: Ehrlichia chaffeensis IgM Ab < 1:16 (< 1:16)
[2025-04-10 11:00] VITALS: BP 118/62; BP 125/72; BP 130/70; PULSE 66; PULSE 68; PULSE 75
--- NOTE | 2025-04-10 12:31 | W.PN.HOSP.TC ---
Today's Communication/Plan
-
monitor vitals
see plan
cw PPI
cw TEDS
holter outpatient per cards
possible dc today
Assessment / Plan
Assessment / Plan
General: Well Nourished and No Apparent Distress
HEENT: Anicteric and Moist mucous membranes
Respiratory: Clear and Non Labored Respirations; No Wheezes
Cardiac: S1/S2 and Regular Rhythm; No Tachycardia
GI: Soft, Non Tender, Non Distended and Normal Bowel Sounds
Genito-urinary: No Grimaldo
Musculoskeletal: No Edema
Neuro: Awake, Alert, Oriented and AO x 3
Psych: Calm and Intact Judgment/Insight
Ongoing nausea/vomiting and dizziness
Orthostatic positive, now improving
Continue with gentle hydration
CT head with no intracranial abnormality
Has been having outpatient workup with primary care provider resulting in abnormal blood smear. Oncology consulted here. lyme neg
Leukocytosis, continue to monitor
CT chest with negative for pulmonary embolism, does have ascending thoracic aorta aneurysm, stable at 4.7 cm.
abdomen/pelvis CT with heavily calcified abdominal aorta
Bladder scan
Low TSH, normal free T4
Per patient seems like his symptoms improve after eating. Also does have GERD. Started PPI and H2 felicia and will monitor. Symptoms still has not improved. GI following. EGD 04/09 with small lateral hernia otherwise normal. During the
procedure per GI patient appeared to went into proximal atrial fibrillation with tachycardia. Will get EKG. per cardiology this likely could be MAT. Cardiology will follow outpatient and will get Holter.
orthos improving
SIRS (leukocytosis, tachycardia, tachypnea)
questionable pneumonitis on CT chest, continue to monitor. Denies cough
unclear source; check blood culture NGTD.
ID following; monitor off antibiotics
Hypernatremia
resolved
Appears to have periods of atrial tachycardia
Cardiology signed off; During EGD procedure pt went into what appeared to be PAF, when he became tachycardic he did drop his blood pressure
anesthesia need to give medications to raise his BP. per cardiology this likely could be MAT. Cardiology will follow outpatient and will get Holter.
Cardiology notified
Echo without acute changes
History of BPH
Continue Flomax
History of hypertension
Currently blood pressure on lower end, hold ramipril
DVT prophylaxis
Lovenox
Full code
Anticipated Discharge: Today
Subjective/Interval History
-
Date of Service: April 10, 2025
denies pain
Objective Data
-
Labs:
Laboratory Results
04/10/25
07:06
WBC 11.0 H
Hgb 10.6 L
Hct 32.5 L
Plt Count 285
Sodium 141
Potassium 4.5
Chloride 108 H
Carbon Dioxide 30
BUN 14
Creatinine 0.9
Glucose 85
Calcium 8.7
Total Bilirubin 0.7
AST 24
ALT 23
Alkaline Phosphatase 66
Vital Signs:
Vital Signs
Temp Pulse Resp BP Pulse Ox
98.5 F 66 20 130/70 97
04/10/25 11:00 04/10/25 11:00 04/10/25 11:00 04/10/25 11:00 04/10/25 11:00
I&O
04/09/25 04/10/25 04/11/25
06:59 06:59 06:59
Intake Total 2039 720 / 720
Output Total 100 / 100
Balance 2039 620 / 620
--- NOTE | 2025-04-10 13:05 | CM ---
Patient seen bedside..
Per patient plan is for d/c home today.
IM reviewed and signed.
Plan: home no needs, has transport home.
[2025-04-10] MEDS: TYLENOL 1000 MG PO (13:29)
[2025-04-10 15:00] VITALS: BP 124/56
[2025-04-10] MEDS: LOVENOX 40 MG SC (17:09)
[2025-04-10] MEDS: FLOMAX 0.4 MG PO (17:09)
[2025-04-10 19:00] VITALS: BP 104/52
[2025-04-10] MEDS: REMOVE LIDOCAINE PATCH 1 PATCH REMOVE (20:53)
[2025-04-10] MEDS: LIPITOR 10 MG PO (20:54)
[2025-04-10] MEDS: PEPCID 20 MG PO (20:54)
[2025-04-10 23:00] VITALS: BP 104/56
[2025-04-11 03:00] VITALS: BP 110/69
[2025-04-11] MEDS: HYDROCORTISONE 2.5% CREAM 1 APPLIC TOPICAL (04:33)
[2025-04-11 06:00] VITALS: BMI 29.9
[2025-04-11 07:00] VITALS: BP 119/75
[2025-04-11 07:49] LABS: Hematocrit 35.3 % (39.0-52.0); Hemoglobin 11.5 g/dL (13.0-18.0); Mean Corp Hgb Conc. 32.6 g/dL (33.0-37.0); Mean Corpuscular Volume 89.8 fL (80.0-94.0); Platelet Count 357 10^3/uL (130-400); Red Cell Dist. Width 18.2 % (11.5-14.5)
[2025-04-11] MEDS: PROTONIX IV 40 MG IV (08:08)
[2025-04-11] MEDS: VITAMIN D3 (cholecalciferol) 50 MCG PO (08:08)
[2025-04-11 08:16] LABS: ALT (SGPT) 42 U/L (0-50); AST (SGOT) 37 U/L (17-59); Albumin 3.7 g/dl (3.5-5.0); Alkaline Phosphatase 74 U/L (38-126); Blood Urea Nitrogen 14 mg/dl (9-20); Calcium 8.9 mg/dl (8.4-10.2); Carbon Dioxide 31 mmol/L (22-30); Chloride 109 mmol/L (98-107); Estimated Creatinine Clearance 70 ml/min; Glucose 94 mg/dl (70-99); Potassium 4.7 mmol/L (3.5-5.1); Sodium 144 mmol/L (135-145); Total Protein 6.4 g/dl (6.3-8.2); eGFR > 60.00
[2025-04-11 08:31] VITALS: BP 110/58; BP 119/75; BP 122/65; PULSE 55; PULSE 57; PULSE 63
[2025-04-11 09:41] LABS: Absolute Neutrophils -Man Diff 6.2 10^3/uL (1.4-6.5)
[2025-04-11 09:45] LABS: Platelets Checked Yes
[2025-04-11 09:46] LABS: Anisocytosis Slight; Macrocytosis Slight; Normal RBC Morphology No
[2025-04-11 09:47] LABS: Acanthocytes FEW; Hypochromasia +1; Target Cells FEW
[2025-04-11 09:48] LABS: Polychromasia Slight; Total Cells Counted 100
[2025-04-11 10:26] LABS: Urine Character Clear (Clear)
--- NOTE | 2025-04-11 12:01 | W.PN.HOSP.TC ---
Today's Communication/Plan
-
Monitor vital signs see plan
Trial of Reglan
Orthostasis improving
Assessment / Plan
Assessment / Plan
General: Well Nourished and No Apparent Distress
HEENT: Anicteric and Moist mucous membranes
Respiratory: Clear and Non Labored Respirations; No Wheezes
Cardiac: S1/S2 and Regular Rhythm; No Tachycardia
GI: Soft, Non Tender, Non Distended and Normal Bowel Sounds
Genito-urinary: No Grimaldo
Musculoskeletal: No Edema
Neuro: Awake, Alert, Oriented and AO x 3
Psych: Calm and Intact Judgment/Insight
Ongoing nausea/vomiting and dizziness
Orthostatic positive, now improving
Continue with gentle hydration
CT head with no intracranial abnormality
Has been having outpatient workup with primary care provider resulting in abnormal blood smear. Oncology consulted here. lyme neg
Leukocytosis, continue to monitor
CT chest with negative for pulmonary embolism, does have ascending thoracic aorta aneurysm, stable at 4.7 cm.
abdomen/pelvis CT with heavily calcified abdominal aorta
Bladder scan
Low TSH, normal free T4
Per patient seems like his symptoms improve after eating. Also does have GERD. Started PPI and H2 felicia and will monitor. Symptoms still has not improved. GI following. EGD 04/09 with small lateral hernia otherwise normal. During the
procedure per GI patient appeared to went into proximal atrial fibrillation with tachycardia. Will get EKG. per cardiology this likely could be MAT. Cardiology will follow outpatient and will get Holter.
orthos improving
Trial of Reglan
SIRS (leukocytosis, tachycardia, tachypnea)
questionable pneumonitis on CT chest, continue to monitor. Denies cough
unclear source; check blood culture NGTD.
ID following; monitor off antibiotics
Temp 100.3 04/10, chest x-ray negative, UA negative
Monitor
Hypernatremia
resolved
Appears to have periods of atrial tachycardia
Cardiology signed off; During EGD procedure pt went into what appeared to be PAF, when he became tachycardic he did drop his blood pressure
anesthesia need to give medications to raise his BP. per cardiology this likely could be MAT. Cardiology will follow outpatient and will get Holter.
Cardiology notified
Echo without acute changes
History of BPH
Continue Flomax
History of hypertension
Currently blood pressure on lower end, hold ramipril
DVT prophylaxis
Lovenox
Full code
Anticipated Discharge: Within 24 hours
Subjective/Interval History
-
Date of Service: April 11, 2025
get nauseous at times
Objective Data
-
Labs:
Laboratory Results
04/11/25
07:30
WBC 10.8
Hgb 11.5 L
Hct 35.3 L
Plt Count 357 D
Sodium 144
Potassium 4.7
Chloride 109 H
Carbon Dioxide 31 H
BUN 14
Creatinine 0.9
Glucose 94
Calcium 8.9
Total Bilirubin 0.5
AST 37
ALT 42
Alkaline Phosphatase 74
Vital Signs:
Vital Signs
Temp Pulse Resp BP Pulse Ox
97.6 F 55 14 119/75 96
04/11/25 07:00 04/11/25 07:00 04/11/25 07:00 04/11/25 07:00 04/11/25 07:00
I&O
04/10/25 04/11/25 04/12/25
06:59 06:59 06:59
Intake Total 720 / 720 1920 / 1920
Output Total 100 / 100 300 / 300
Balance 620 / 620 1620 / 1620
[2025-04-11] MEDS: LIDOCAINE 4% PATCH TOPICAL (12:55)
[2025-04-11] MEDS: REGLAN 5 MG PO (12:55)
[2025-04-11 15:00] VITALS: BP 130/73
[2025-04-11] MEDS: FLOMAX 0.4 MG PO (18:43)
[2025-04-11] MEDS: LOVENOX 40 MG SC (18:43)
[2025-04-11] MEDS: REMOVE LIDOCAINE PATCH REMOVE (20:39)
[2025-04-11] MEDS: LIPITOR 10 MG PO (22:15)
[2025-04-11] MEDS: PEPCID 20 MG PO (22:15)
[2025-04-11 23:00] VITALS: BP 103/66; BP 138/84; BP 147/91; PULSE 105; PULSE 108; PULSE 117
[2025-04-11] MEDS: TYLENOL 650 MG PO (23:23)
[2025-04-12] VITALS (7 sets, daily range): BP systolic 104–123; BP diastolic 58–76
[2025-04-12] MEDS: LIDOCAINE 4% PATCH TOPICAL (07:56)
[2025-04-12] MEDS: VITAMIN D3 (cholecalciferol) 50 MCG PO (07:57)
[2025-04-12 09:26] LABS: ALT (SGPT) 48 U/L (0-50); AST (SGOT) 33 U/L (17-59); Albumin 3.7 g/dl (3.5-5.0); Alkaline Phosphatase 78 U/L (38-126); Blood Urea Nitrogen 16 mg/dl (9-20); Calcium 9.6 mg/dl (8.4-10.2); Carbon Dioxide 30 mmol/L (22-30); Chloride 107 mmol/L (98-107); Estimated Creatinine Clearance 63 ml/min; Glucose 99 mg/dl (70-99); Potassium 4.7 mmol/L (3.5-5.1); Sodium 144 mmol/L (135-145); Total Protein 6.6 g/dl (6.3-8.2); eGFR > 60.00
--- NOTE | 2025-04-12 09:31 | PTOTSP ---
Speech therapy
Presentation: Patient was oriented and cooperative. Patient followed commands WNL. During conversation, patient's speech and language appeared to be WNL. Patient denied any communicative defiicts.
Complaints: Patient reported having discomfort regarding his tongue ~3 weeks. Patient describes his discomfort as a 'sticky' sensation that he cannot resolve; despite ample liquid washes. This discomfort has attributed to his inconsistent moments of
'gagging' as he feels as though his throat becomes 'dry'. DIGITAL COMPUTER SYSTEMS ANALYST noted a white film on his tongue which remained throughout the session. Of note, it does not appear to resemble thrush but thrush cannot be excluded. DIGITAL COMPUTER SYSTEMS ANALYST alerted MD.
Swallowing Function: DIGITAL COMPUTER SYSTEMS ANALYST observed patient with several sips of thin liquids (straw) and bites of low residue solids (regular and puree consistency) from meal tray in which patient appeared to tolerate as he did not exhibit any overt clinical s/sx
of aspiration or difficulty with mastication/ manipulation. Patient denied dysphagia complaints, other than the 'gagging' he experiences inconsistently when his tongue and throat are 'dry'.
Recommendations:
1) Continuation of reg/ thin
2) Aspiration precautions
3) Medications as tolerated
4) Consider treatment for white coating on tongue (MD aware)
Plan: DIGITAL COMPUTER SYSTEMS ANALYST will sign off at this time as patient's swallowing function appears to be intact and at baseline. Please re-consult if clinically indicated.
[2025-04-12 10:22] LABS: Hematocrit 35.7 % (39.0-52.0); Hemoglobin 11.4 g/dL (13.0-18.0); Mean Corp Hgb Conc. 31.9 g/dL (33.0-37.0); Mean Corpuscular Volume 91.3 fL (80.0-94.0); Red Cell Dist. Width 18.2 % (11.5-14.5)
--- NOTE | 2025-04-12 10:33 | W.PN.HOSP.TC ---
Today's Communication/Plan
-
Monitor vital signs see plan
Follow fever curve
ID reconsulted
Blood culture
Assessment / Plan
Assessment / Plan
General: Well Nourished and No Apparent Distress
HEENT: Anicteric and Moist mucous membranes
Respiratory: Clear and Non Labored Respirations; No Wheezes
Cardiac: S1/S2 and Regular Rhythm; No Tachycardia
GI: Soft, Non Tender, Non Distended and Normal Bowel Sounds
Genito-urinary: No Grimaldo
Musculoskeletal: No Edema
Neuro: Awake, Alert, Oriented and AO x 3
Psych: Calm and Intact Judgment/Insight
Ongoing nausea/vomiting and dizziness
Orthostatic positive, now improving
Continue with gentle hydration
CT head with no intracranial abnormality
Has been having outpatient workup with primary care provider resulting in abnormal blood smear. Oncology consulted here. Per oncology no signs of malignancy here.lyme neg
Leukocytosis, continue to monitor
CT chest with negative for pulmonary embolism, does have ascending thoracic aorta aneurysm, stable at 4.7 cm.
abdomen/pelvis CT with heavily calcified abdominal aorta
Bladder scan
Low TSH, normal free T4
Also does have GERD. Started PPI and H2 felicia and will monitor. Symptoms still has not improved. GI following.
EGD 04/09 with small lateral hernia otherwise normal.
orthos improving
SIRS (leukocytosis, tachycardia, tachypnea)
questionable pneumonitis on CT chest, continue to monitor. Denies cough
unclear source; check blood culture NGTD. Temp 102.4 overnight. ID reconsulted. Check blood culture. UA was negative for UTI. Follow fever curve.
ID following; monitor off antibiotics
04/10, chest x-ray negative
Monitor
speech rec regular diet
Hypernatremia
resolved
Appears to have periods of atrial tachycardia
Cardiology signed off; During EGD procedure pt went into what appeared to be PAF, when he became tachycardic he did drop his blood pressure
anesthesia need to give medications to raise his BP. per cardiology this likely could be MAT. Cardiology will follow outpatient and will get Holter.
Cardiology notified
Echo without acute changes
History of BPH
Continue Flomax
History of hypertension
Currently blood pressure on lower end, hold ramipril
DVT prophylaxis
Lovenox
Full code
Anticipated Discharge: Within 24 hours
Subjective/Interval History
-
Date of Service: April 12, 2025
Fever overnight
Objective Data
-
Labs:
Laboratory Results
04/12/25
07:37
WBC 12.7 H
Hgb 11.4 L
Hct 35.7 L
Plt Count Pending
Sodium 144
Potassium 4.7
Chloride 107
Carbon Dioxide 30
BUN 16
Creatinine 1.0
Glucose 99
Calcium 9.6
Total Bilirubin 0.7
AST 33
ALT 48
Alkaline Phosphatase 78
Vital Signs:
Vital Signs
Temp Pulse Resp BP Pulse Ox
97.4 F 61 12 118/65 95
04/12/25 07:15 04/12/25 07:15 04/12/25 07:15 04/12/25 07:15 04/12/25 07:15
I&O
04/11/25 04/12/25 04/13/25
06:59 06:59 06:59
Intake Total 1920 / 1920 480 / 480
Output Total 300 / 300
Balance 1620 / 1620 480 / 480
[2025-04-12 10:39] LABS: Absolute Neutrophils -Man Diff 11.4 10^3/uL (1.4-6.5)
[2025-04-12 10:43] LABS: Normal RBC Morphology No; Platelets Checked YES
[2025-04-12 10:45] LABS: Anisocytosis Slight; Polychromasia Slight
[2025-04-12 10:47] LABS: Macrocytosis Slight
[2025-04-12 10:48] LABS: Hypersegmented Neutrophil Slight; Spherocytes FEW
[2025-04-12 10:49] LABS: Total Cells Counted 100
[2025-04-12] MEDS: HYDROCORTISONE 2.5% CREAM 1 APPLIC TOPICAL ×2 (12:39→20:10)
[2025-04-12] MEDS: PROTONIX IV 40 MG IV (13:11)
--- NOTE | 2025-04-12 13:26 | W.PN.ID1 ---
Date of Service
Date of Service: April 12, 2025
Today's Communication
Continue to observe off antibiotics. Repeat blood cultures for temperature greater than 100.5 degrees or onset of chills.
Assessment / Plan
Fevers/chills
Nausea/vomiting
Leukocytosis
Hyponatremia
HTN
HLD
Recommendations:
Fevers noted overnight.
Blood cultures obtained today.
Will check ESR and CRP.
Would repeat blood cultures with onset of chills/rigors as that would provide the highest yield.
Will continue to monitor white count and temperature curve off antibiotics.
Blood parasite smear is negative.
Serology for tickborne illness pending.
����������������������������������������������������������
Chief Complaint
-: Fever and Leukocytosis
Subjective / Review of Systems
Patient seen and examined. Reports fevers overnight to 102 degrees. Notes preceding rigors.
Vital Signs / Physical Exam
Vital Signs
Vital Signs
Temp Pulse Resp BP Pulse Ox
97.4 F 78 16 111/60 94
04/12/25 11:30 04/12/25 11:56 04/12/25 11:56 04/12/25 11:56 04/12/25 11:56
Physical Exam
Constitutional: No Acute Distress, Comfortable and Non-toxic
Eyes: Sclera Anicteric
Cardiovascular: S1/S2; Negative S3/S4
Pulmonary: Non Labored
Gastrointestinal: Soft, Non Tender and Non Distended
Skin: Negative Rash or Jaundice
Neurological: Awake and Alert
Psychological: Calm
Objective Data
Lab Data
Lab Results
04/12/25 07:37
04/12/25 07:37
Estimated Creat Clear 63 ml/min 04/12/25 07:37
Total Bilirubin 0.7 mg/dl (0.2-1.3) 04/12/25 07:37
AST 33 U/L (17-59) 04/12/25 07:37
ALT 48 U/L (0-50) 04/12/25 07:37
Alkaline Phosphatase 78 U/L (38-126) 04/12/25 07:37
Amylase Cancelled 04/07/25 15:02
Most recent labs reviewed.
Micro Results:
04/12/25 10:08 Blood Culture - Pending
Blood/Venous
04/12/25 09:21 Blood Culture - Pending
Blood/Venous
04/06/25 22:50 Blood Culture - Final
Blood/Venous No Growth - Final Report
04/06/25 22:36 Blood Culture - Final
Blood/Venous No Growth - Final Report
04/06/25 22:35 Blood Parasites Smear - Final
Blood/Venous
Imaging:
04/06/2025 CT chest (PE study): no evidence for central pulmonary embolism. Aneurysmal dilatation of the ascending thoracic aorta is stable at 4.7 cm. Pulmonary vascular/interstitial markings are slightly prominent. Cardiomegaly with suspected
coronary artery calcifications noted. Please see full dictation for additional detail.
Care Review
Plan reviewed with: Physician (Hospitalist)
[2025-04-12] MEDS: FLOMAX 0.4 MG PO (17:29)
[2025-04-12] MEDS: LOVENOX 40 MG SC (17:30)
[2025-04-12] MEDS: REMOVE LIDOCAINE PATCH REMOVE (19:56)
[2025-04-12] MEDS: PEPCID 20 MG PO (22:06)
[2025-04-12] MEDS: LIPITOR 10 MG PO (22:06)
[2025-04-13 07:25] VITALS: BP 117/59; BP 120/67; BP 97/57; PULSE 65; PULSE 75; PULSE 76
[2025-04-13 07:36] LABS: Hematocrit 33.9 % (39.0-52.0); Hemoglobin 10.9 g/dL (13.0-18.0); Mean Corp Hgb Conc. 32.2 g/dL (33.0-37.0); Mean Corpuscular Volume 90.9 fL (80.0-94.0); Red Cell Dist. Width 17.9 % (11.5-14.5)
[2025-04-13 07:51] LABS: ALT (SGPT) 44 U/L (0-50); AST (SGOT) 32 U/L (17-59); Albumin 3.4 g/dl (3.5-5.0); Alkaline Phosphatase 72 U/L (38-126); Blood Urea Nitrogen 15 mg/dl (9-20); Calcium 8.7 mg/dl (8.4-10.2); Carbon Dioxide 31 mmol/L (22-30); Chloride 108 mmol/L (98-107); Estimated Creatinine Clearance 70 ml/min; Glucose 87 mg/dl (70-99); Potassium 4.4 mmol/L (3.5-5.1); Sodium 143 mmol/L (135-145); Total Protein 6.0 g/dl (6.3-8.2); eGFR > 60.00
[2025-04-13 07:57] LABS: C-Reactive Protein 87.70 mg/L (0.0-10.00)
[2025-04-13] MEDS: PROTONIX IV 40 MG IV (08:13)
[2025-04-13] MEDS: LIDOCAINE 4% PATCH TOPICAL (08:13)
[2025-04-13] MEDS: VITAMIN D3 (cholecalciferol) 50 MCG PO (08:14)
[2025-04-13 09:35] LABS: Absolute Neutrophils -Man Diff 5.9 10^3/uL (1.4-6.5); Platelets Checked Yes
[2025-04-13 09:36] LABS: Normal RBC Morphology Yes; Total Cells Counted 100
[2025-04-13 11:18] VITALS: BMI 29.8
[2025-04-13] MEDS: ZOFRAN 4 MG IV (12:20)
--- NOTE | 2025-04-13 13:37 | W.PN.ID1 ---
Date of Service
Date of Service: April 13, 2025
Today's Communication
Continue off antibiotics. Monitor white count and temperature curve.
Assessment / Plan
Fevers/chills
Nausea/vomiting
Leukocytosis
Hyponatremia
HTN
HLD
Recommendations:
Patient remains off antibiotics.
No recurrence of fevers.
Blood cultures negative to date.
ESR and CRP noted to be elevated, but etiology unclear.
Will continue to monitor white count and temperature curve off antibiotics.
Blood parasite smear is negative. Borrelia DNA PCR negative. Ehrlichia negative
����������������������������������������������������������
Chief Complaint
-: Fever and Leukocytosis
Subjective / Review of Systems
Patient seen and examined. Reports vomiting today. Overall, reports not feeling well.
Vital Signs / Physical Exam
Vital Signs
Vital Signs
Temp Pulse Resp BP Pulse Ox
98.0 F 65 16 120/67 97
04/13/25 07:25 04/13/25 07:25 04/13/25 07:25 04/13/25 07:25 04/13/25 07:25
Physical Exam
Constitutional: No Acute Distress, Comfortable and Non-toxic
Eyes: Sclera Anicteric
Cardiovascular: Regular Rate and S1/S2; Negative S3/S4
Pulmonary: Clear and Non Labored; Negative Wheezes, Rales or Rhonchi
Gastrointestinal: Soft, Non Tender and Non Distended
Extremities: Negative Edema, Cyanosis or Erythema
Skin: Negative Rash or Jaundice
Neurological: Awake and Alert
Psychological: Calm
Objective Data
Lab Data
Lab Results
04/13/25 06:50
04/13/25 06:50
ESR 57 mm/hour (0-20) H 04/13/25 06:50
Estimated Creat Clear 70 ml/min 04/13/25 06:50
Total Bilirubin 0.6 mg/dl (0.2-1.3) 04/13/25 06:50
AST 32 U/L (17-59) 04/13/25 06:50
ALT 44 U/L (0-50) 04/13/25 06:50
Alkaline Phosphatase 72 U/L (38-126) 04/13/25 06:50
C-Reactive Protein 87.70 mg/L (0.0-10.00) H 04/13/25 06:50
Amylase Cancelled 04/07/25 15:02
Most recent labs reviewed.
Micro Results:
04/12/25 10:08 Blood Culture - Preliminary
Blood/Venous No Growth in 24 hours- Final report to follow
04/12/25 09:21 Blood Culture - Preliminary
Blood/Venous No Growth in 24 hours- Final report to follow
04/06/25 22:50 Blood Culture - Final
Blood/Venous No Growth - Final Report
04/06/25 22:36 Blood Culture - Final
Blood/Venous No Growth - Final Report
04/06/25 22:35 Blood Parasites Smear - Final
Blood/Venous
Imaging:
04/06/2025 CT chest (PE study): no evidence for central pulmonary embolism. Aneurysmal dilatation of the ascending thoracic aorta is stable at 4.7 cm. Pulmonary vascular/interstitial markings are slightly prominent. Cardiomegaly with suspected
coronary artery calcifications noted. Please see full dictation for additional detail.
--- NOTE | 2025-04-13 14:02 | W.PN.HOSP.TC ---
Today's Communication/Plan
-
Given persistent abdominal symptoms, with reported loss of weight, atherosclerosis on imaging, will ask vascular surgery to evaluate for possible mesenteric ischemia
Observe off antibiotics, monitor for recurrent fever
Assessment / Plan
Assessment / Plan
Ongoing nausea/vomiting and dizziness
Orthostatic positive, now improving
Continue with gentle hydration
CT head with no intracranial abnormality
Has been having outpatient workup with primary care provider resulting in abnormal blood smear. Oncology consulted here. Per oncology no signs of malignancy here.lyme neg
Leukocytosis, continue to monitor
CT chest with negative for pulmonary embolism, does have ascending thoracic aorta aneurysm, stable at 4.7 cm.
abdomen/pelvis CT with heavily calcified abdominal aorta
Bladder scan
Low TSH, normal free T4
Also does have GERD. Started PPI and H2 felicia and will monitor. Symptoms still has not improved. GI following.
EGD 04/09 with small lateral hernia otherwise normal.
Given persistent abdominal symptoms, with reported loss of weight, atherosclerosis on imaging, will ask vascular surgery to evaluate for possible mesenteric ischemia
SIRS (leukocytosis, tachycardia, tachypnea)
questionable pneumonitis on CT chest, continue to monitor. Denies cough
unclear source; check blood culture NGTD. Temp 102.4 overnight. ID reconsulted. Check blood culture. UA was negative for UTI. Follow fever curve.
ID following; monitor off antibiotics
Smear negative for parasites
Tick born path serology negative
Hypernatremia
resolved
Appears to have periods of atrial tachycardia
Cardiology signed off; During EGD procedure pt went into what appeared to be PAF, when he became tachycardic he did drop his blood pressure
anesthesia need to give medications to raise his BP. per cardiology this likely could be MAT. Cardiology will follow outpatient and will get Holter.
Cardiology notified
Echo without acute changes
History of BPH
Continue Flomax
History of hypertension
Currently blood pressure on lower end, hold ramipril
DVT prophylaxis
Lovenox
Full code
Anticipated Discharge: 24 - 48 hours
Subjective/Interval History
-
Date of Service: April 13, 2025
Objective Data
-
Labs:
Laboratory Results
04/13/25
06:50
WBC 9.9
Hgb 10.9 L
Hct 33.9 L
Plt Count
Sodium 143
Potassium 4.4
Chloride 108 H
Carbon Dioxide 31 H
BUN 15
Creatinine 0.9
Glucose 87
Calcium 8.7
Total Bilirubin 0.6
AST 32
ALT 44
Alkaline Phosphatase 72
Vital Signs:
Vital Signs
Temp Pulse Resp BP Pulse Ox
98.0 F 65 16 120/67 97
04/13/25 07:25 04/13/25 07:25 04/13/25 07:25 04/13/25 07:25 04/13/25 07:25
I&O
04/12/25 04/13/25 04/14/25
06:59 06:59 06:59
Intake Total 480 / 480 380 / 380
Output Total 4200 / 4200
Balance 480 / 480 -3820 / -3820
Physical Exam
-
General: Well Developed and No Apparent Distress
HEENT: Normocephalic, Atraumatic and Moist Mucous Membranes
Respiratory: Clear to Auscultation
Cardiac: Regular Rhythm and S1/S2; Negative Murmur, Rub or Gallop
GI: Soft, Nontender, Nondistended and Normal Bowel Sounds; Negative Organomegaly
Rectal: Deferred by Provider
Musculoskeletal: No Clubbing, No Cyanosis and No Edema
Skin: Negative Rash
Neuro: Nonfocal/Grossly Intact
[2025-04-13 15:25] VITALS: BP 126/83
--- NOTE | 2025-04-13 16:13 | CM ---
CM reviewed chart, vascular surgery consulted. Continue to observe off antibiotics. Will continue to follow for all discharge planning needs.
Plan; home no needs anticipated
[2025-04-13] MEDS: FLOMAX 0.4 MG PO (17:23)
[2025-04-13] MEDS: LOVENOX 40 MG SC (17:23)
[2025-04-13] MEDS: PEPCID 20 MG PO (19:51)
[2025-04-13] MEDS: LIPITOR 10 MG PO (19:51)
[2025-04-13] MEDS: REMOVE LIDOCAINE PATCH REMOVE (19:52)
[2025-04-13 23:17] VITALS: BP 114/63
[2025-04-13 23:18] VITALS: BP 102/58; BP 114/63; BP 115/55; PULSE 54; PULSE 74; PULSE 77
[2025-04-14 06:16] VITALS: BMI 29.2
[2025-04-14] MEDS: LIDOCAINE 4% PATCH TOPICAL (07:19)
[2025-04-14 07:25] VITALS: BP 105/54; BP 108/56; BP 108/64; BP 97/55; PULSE 60; PULSE 64; PULSE 70
[2025-04-14] MEDS: VITAMIN D3 (cholecalciferol) 50 MCG PO (07:33)
[2025-04-14] MEDS: PROTONIX IV 40 MG IV (07:33)
--- NOTE | 2025-04-14 11:16 | W.PN.ID1 ---
Date of Service
Date of Service: April 14, 2025
Today's Communication
Continue off antibiotics.
Assessment / Plan
Fevers/chills
Nausea/vomiting
Leukocytosis
Hyponatremia
HTN
HLD
Recommendations:
Patient remains off antibiotics.
No recurrence of fevers.
Blood cultures negative to date.
ESR and CRP noted to be elevated, but etiology unclear.
Will continue to monitor white count and temperature curve off antibiotics.
Blood parasite smear is negative. Borrelia DNA PCR negative. Ehrlichia negative
����������������������������������������������������������
Chief Complaint
-: Fever and Leukocytosis
Subjective / Review of Systems
Patient reports uneventful night. No nausea as of today. Afebrile x >48 hours
Vital Signs / Physical Exam
Vital Signs
Vital Signs
Temp Pulse Resp BP Pulse Ox
97.6 F 64 24 108/64 97
04/14/25 07:25 04/14/25 07:25 04/14/25 07:25 04/14/25 07:25 04/14/25 07:25
Physical Exam
Constitutional: No Acute Distress, Comfortable and Non-toxic
Eyes: Sclera Anicteric
Cardiovascular: Regular Rate and S1/S2; Negative S3/S4
Pulmonary: Clear and Non Labored; Negative Wheezes, Rales or Rhonchi
Gastrointestinal: Soft, Non Tender and Non Distended
Extremities: Negative Edema, Cyanosis or Erythema
Skin: Negative Rash or Jaundice
Neurological: Awake and Alert
Psychological: Calm
Objective Data
Lab Data
Lab Results
04/13/25 06:50
04/13/25 06:50
ESR 57 mm/hour (0-20) H 04/13/25 06:50
Estimated Creat Clear 70 ml/min 04/13/25 06:50
Total Bilirubin 0.6 mg/dl (0.2-1.3) 04/13/25 06:50
AST 32 U/L (17-59) 04/13/25 06:50
ALT 44 U/L (0-50) 04/13/25 06:50
Alkaline Phosphatase 72 U/L (38-126) 04/13/25 06:50
C-Reactive Protein 87.70 mg/L (0.0-10.00) H 04/13/25 06:50
Amylase Cancelled 04/07/25 15:02
Most recent labs reviewed.
Micro Results:
04/12/25 10:08 Blood Culture - Preliminary
Blood/Venous No Growth in 48 hours- Final report to follow
04/12/25 09:21 Blood Culture - Preliminary
Blood/Venous No Growth in 48 hours- Final report to follow
04/06/25 22:50 Blood Culture - Final
Blood/Venous No Growth - Final Report
04/06/25 22:36 Blood Culture - Final
Blood/Venous No Growth - Final Report
04/06/25 22:35 Blood Parasites Smear - Final
Blood/Venous
Imaging:
04/06/2025 CT chest (PE study): no evidence for central pulmonary embolism. Aneurysmal dilatation of the ascending thoracic aorta is stable at 4.7 cm. Pulmonary vascular/interstitial markings are slightly prominent. Cardiomegaly with suspected
coronary artery calcifications noted. Please see full dictation for additional detail.
--- NOTE | 2025-04-14 14:34 | W.PN.HOSP.TC ---
Today's Communication/Plan
-
Offers no new complaints.
Improved nausea and abdominal discomfort mild tolerating diet
Monitor over the next 24 hours with pending discharge home.
Assessment / Plan
Assessment / Plan
Ongoing nausea/vomiting and dizziness
Orthostatic positive, now improving
Continue with gentle hydration
CT head with no intracranial abnormality
Has been having outpatient workup with primary care provider resulting in abnormal blood smear. Oncology consulted here. Per oncology no signs of malignancy here.lyme neg
Leukocytosis, continue to monitor
CT chest with negative for pulmonary embolism, does have ascending thoracic aorta aneurysm, stable at 4.7 cm.
abdomen/pelvis CT with heavily calcified abdominal aorta
Bladder scan
Low TSH, normal free T4
Also does have GERD. Started PPI and H2 felicia and will monitor. Symptoms still has not improved. GI following.
EGD 04/09 with small lateral hernia otherwise normal.
CT angiogram of abdomen pelvis with no evidence of large vessel obstruction. Pending vascular consult, mesenteric ischemia is less likely.
SIRS (leukocytosis, tachycardia, tachypnea)
questionable pneumonitis on CT chest, continue to monitor. Denies cough
unclear source; check blood culture NGTD. Temp 102.4 overnight. ID reconsulted. Check blood culture. UA was negative for UTI. Follow fever curve.
ID following; monitor off antibiotics
Smear negative for parasites
Tick born path serology negative
Hypernatremia
resolved
Appears to have periods of atrial tachycardia
Cardiology signed off; During EGD procedure pt went into what appeared to be PAF, when he became tachycardic he did drop his blood pressure
anesthesia need to give medications to raise his BP. per cardiology this likely could be MAT. Cardiology will follow outpatient and will get Holter.
Cardiology notified
Echo without acute changes
History of BPH
Continue Flomax
History of hypertension
Currently blood pressure on lower end, hold ramipril
DVT prophylaxis
Lovenox
Full code
Anticipated Discharge: 24 - 48 hours
Subjective/Interval History
-
Date of Service: April 14, 2025
Objective Data
-
Vital Signs:
Vital Signs
Temp Pulse Resp BP Pulse Ox
97.6 F 64 24 108/64 97
04/14/25 07:25 04/14/25 07:25 04/14/25 07:25 04/14/25 07:25 04/14/25 07:25
I&O
04/13/25 04/14/25 04/15/25
06:59 06:59 06:59
Intake Total 380 / 380 1280 / 1280
Output Total 4200 / 4200 325 / 325
Balance -3820 / -3820 955 / 955
Physical Exam
-
General: Well Developed and No Apparent Distress
HEENT: Normocephalic, Atraumatic and Moist Mucous Membranes
Respiratory: Clear to Auscultation
Cardiac: Regular Rhythm and S1/S2; Negative Murmur, Rub or Gallop
GI: Soft, Nontender, Nondistended and Normal Bowel Sounds; Negative Organomegaly
Rectal: Deferred by Provider
Musculoskeletal: No Clubbing, No Cyanosis and No Edema
Skin: Negative Rash
Neuro: Nonfocal/Grossly Intact
[2025-04-14 15:48] VITALS: BP 110/60
[2025-04-14] MEDS: LOVENOX 40 MG SC (17:27)
[2025-04-14] MEDS: FLOMAX 0.4 MG PO (17:27)
[2025-04-14] MEDS: REMOVE LIDOCAINE PATCH REMOVE (20:13)
[2025-04-14] MEDS: LIPITOR 10 MG PO (21:15)
[2025-04-14] MEDS: PEPCID 20 MG PO (21:15)
[2025-04-14 23:00] VITALS: BP 104/63; BP 117/66; BP 127/64; PULSE 71; PULSE 74; PULSE 87
--- NOTE | 2025-04-15 02:45 | DOWNTIME ---
There was a [employer] Downtime on 04/15/2025 from 0100 to 04/15/2025 at 0235. Downtime documentation of patient's care, including medication administrations, has been reconciled in the electronic record per guidelines. Refer to the
patient's paper chart under the miscellaneous tab to see printed paper medication records and downtime forms.
[2025-04-15 03:31] VITALS: BMI 29.3
[2025-04-15 08:30] VITALS: BP 107/57; BP 107/71; BP 93/67; PULSE 72; PULSE 93; PULSE 96
[2025-04-15] MEDS: PROTONIX IV 40 MG IV (08:46)
[2025-04-15] MEDS: VITAMIN D3 (cholecalciferol) 50 MCG PO (08:46)
[2025-04-15] MEDS: LIDOCAINE 4% PATCH TOPICAL (08:50)
--- NOTE | 2025-04-15 11:57 | W.PN.ID1 ---
Date of Service
Date of Service: April 15, 2025
Today's Communication
Continue off antibiotics.
Assessment / Plan
Fevers/chills
Nausea/vomiting
Leukocytosis
Hyponatremia
HTN
HLD
Recommendations:
Patient remains off antibiotics.
No recurrence of fevers.
Blood cultures negative to date. Blood parasite smear is negative. Borrelia DNA PCR negative. Ehrlichia negative
ESR and CRP noted to be elevated, but etiology unclear. May consider outpatient rheumatology evaluation.
����������������������������������������������������������
Chief Complaint
-: Fever and Leukocytosis
Subjective / Review of Systems
Review of Systems: No Fever, No Chills and No Nausea
Vital Signs / Physical Exam
Vital Signs
Vital Signs
Temp Pulse Resp BP Pulse Ox
98.5 F 71 20 127/64 95
04/15/25 07:00 04/14/25 23:00 04/14/25 23:00 04/14/25 23:00 04/14/25 23:00
Physical Exam
Constitutional: No Acute Distress, Comfortable and Non-toxic
Eyes: Sclera Anicteric
Cardiovascular: S1/S2; Negative S3/S4
Pulmonary: Non Labored
Gastrointestinal: Soft, Non Tender and Non Distended
Neurological: Awake and Alert
Psychological: Calm
Objective Data
Lab Data
Lab Results
04/13/25 06:50
04/13/25 06:50
ESR 57 mm/hour (0-20) H 04/13/25 06:50
Estimated Creat Clear 70 ml/min 04/13/25 06:50
Total Bilirubin 0.6 mg/dl (0.2-1.3) 04/13/25 06:50
AST 32 U/L (17-59) 04/13/25 06:50
ALT 44 U/L (0-50) 04/13/25 06:50
Alkaline Phosphatase 72 U/L (38-126) 04/13/25 06:50
C-Reactive Protein 87.70 mg/L (0.0-10.00) H 04/13/25 06:50
Amylase Cancelled 04/07/25 15:02
Most recent labs reviewed.
Micro Results:
04/12/25 10:08 Blood Culture - Preliminary
Blood/Venous No Growth in 72 hours- Final report to follow
04/12/25 09:21 Blood Culture - Preliminary
Blood/Venous No Growth in 72 hours- Final report to follow
04/06/25 22:50 Blood Culture - Final
Blood/Venous No Growth - Final Report
04/06/25 22:36 Blood Culture - Final
Blood/Venous No Growth - Final Report
04/06/25 22:35 Blood Parasites Smear - Final
Blood/Venous
Imaging:
04/06/2025 CT chest (PE study): no evidence for central pulmonary embolism. Aneurysmal dilatation of the ascending thoracic aorta is stable at 4.7 cm. Pulmonary vascular/interstitial markings are slightly prominent. Cardiomegaly with suspected
coronary artery calcifications noted. Please see full dictation for additional detail.
--- NOTE | 2025-04-15 14:27 | W.DS.TRANS ---
DC Summary - [facility] Experience Strategy
-
Discharge Instructions:
Discharge Diagnosis/Procedures Nausea/vomiting and dizziness
Orthostatic hypotension
SIRS
Hypernatremia
Suspect multi atrial tachycardia
Diet As tolerated,Low Residue
Activity As tolerated
Driving Restrictions As prior to admission
Others Tests heart monitor- cardiology office will call you
to arrange
Instructions:
Stand-Alone Forms:
Changes to Home Medications: No
Discharge Medications:
DC Medications w/original date entered in [employer]
atorvastatin 10 mg tablet (Lipitor) 10 mg PO HS High Cholesterol 10/22/23
uhmfhzdqhfv-oyfhx-vrz-vit C-Mn 500 mg-400 mg-166.6 mg tablet (Flexi Joint) 1 tab PO BID Supplement 10/22/23
ramipril 5 mg capsule 5 mg PO BID Blood Pressure 10/22/23
Held on 04/15/25. Instructions: Restart when blood pressure is greater than 140/90
saw palm 50 mg-pyg 20 mg-nettl 25 mg-pump 100 gm-rjof-tg-Zn-Cu capsule (Prostate Control) 1 cap PO DAILY Supplement 10/22/23
Relaxium 1 cap PO HS Supplement 04/06/25
cholecalciferol (vitamin D3) 50 mcg (2,000 unit) capsule (Vitamin D3) 50 mcg PO DAILY Supplement 04/06/25
tamsulosin 0.4 mg capsule (Flomax) 0.4 mg PO QPM Urinary Issue 04/06/25
Home Medication Changes
Pending Results: No
--- NOTE | 2025-04-15 14:35 | CM ---
Chart reviewed. Patient will d/c today
Met w/ patient bedside, agreeable to d/c. Spouse or son will transport him home
IMM verbally reviewed, copy provided, copy on chart
Plan: Home, no needs
--- NOTE | 2025-04-15 15:43 | PTCARENOTE ---
Patient discharged to home, with spouse. Discharge packet reviewed. IV removed. Patient belongings accounted for and sent home with patient. Transport utilized to wheel patient down to main lobby.
== END 2025-04-15 15:57 | disposition home or self-care (01) | DRG 312 ==
LOC: 4 WEST ACU 10:38
PROVIDERS: Emergency Medicine; ADMITTING PHYSICIAN Internal Medicine; ATTENDING PHYSICIAN Internal Medicine; CONSULT PHYSICIAN Internal Medicine; CONSULT PHYSICIAN Internal Medicine Infectious Disease; EMERGENCY PHYSICIAN Student in an Organized Health Care Education/Training Program; FAMILY PHYSICIAN Internal Medicine; OTHER PHYSICIAN Internal Medicine Hematology & Oncology
PROC: 0DB68ZX Excision of Stomach, Via Natural or Artificial Opening Endoscopic, Diagnostic (ICD-10-PCS; 2025-04-09)
PROC: 0DB98ZX Excision of Duodenum, Via Natural or Artificial Opening Endoscopic, Diagnostic (ICD-10-PCS; 2025-04-09)
PROC: 0DB28ZX Excision of Middle Esophagus, Via Natural or Artificial Opening Endoscopic, Diagnostic (ICD-10-PCS; 2025-04-09)
DX: I95.1 Orthostatic hypotension (principal); R65.10 Systemic inflammatory response syndrome (SIRS) of non-infectious origin without acute organ dysfunction; I47.20 Ventricular tachycardia, unspecified; I47.19 Other supraventricular tachycardia; E87.0 Hyperosmolality and hypernatremia; I71.21 Aneurysm of the ascending aorta, without rupture; E78.2 Mixed hyperlipidemia; E66.9 Obesity, unspecified; R09.02 Hypoxemia; D64.9 Anemia, unspecified; I10 Essential (primary) hypertension; N40.1 Benign prostatic hyperplasia with lower urinary tract symptoms; K44.9 Diaphragmatic hernia without obstruction or gangrene; I70.0 Atherosclerosis of aorta; K21.9 Gastro-esophageal reflux disease without esophagitis; J98.4 Other disorders of lung; R33.8 Other retention of urine; R73.03 Prediabetes; I35.1 Nonrheumatic aortic (valve) insufficiency; J30.2 Other seasonal allergic rhinitis; Z96.642 Presence of left artificial hip joint; Z96.643 Presence of artificial hip joint, bilateral; Z68.29 Body mass index [BMI] 29.0-29.9, adult; Z57.5 Occupational exposure to toxic agents in other industries; Z86.79 Personal history of other diseases of the circulatory system; Z80.0 Family history of malignant neoplasm of digestive organs; Z81.1 Family history of alcohol abuse and dependence; Z86.0100 Personal history of colon polyps, unspecified; Z91.81 History of falling; Z86.13 Personal history of malaria
CPT/HCPCS: 70450; 71046; 71275; 74174; 74177; 80048; 80053; 81003; 81015; 82150; 82533; 82607; 82728; 82746; 83010; 83036; 83521; 83540; 83615; 83690; 83735; 83880; 84439; 84443; 84484; 85025; 85045; 85652; 86140; 86666; 87015; 87040; 87207; 87476; 88305; 88342; 92610; 93005; 93306; 96374; 97161; 99285; Q9950; Q9967

== ENCOUNTER → 2025-07-08 12:18 | Outpatient (REF) | payer MEDICARE, OTHER, SELFPAY ==
[2025-07-08 13:33] LABS: ALT (SGPT) 16 U/L (0-50); AST (SGOT) 19 U/L (17-59); Albumin 4.0 g/dl (3.5-5.0); Alkaline Phosphatase 83 U/L (38-126); Blood Urea Nitrogen 17 mg/dl (9-20); Calcium 10.2 mg/dl (8.4-10.2); Carbon Dioxide 35 mmol/L (22-30); Chloride 103 mmol/L (98-107); Glucose 115 mg/dl (70-99); Potassium 4.5 mmol/L (3.5-5.1); Sodium 139 mmol/L (135-145); Total Protein 7.3 g/dl (6.3-8.2); eGFR > 60.00
[2025-07-08 13:50] LABS: Absolute Neutrophils -Man Diff 6.2 10^3/uL (1.4-6.5); Hematocrit 34.0 % (39.0-52.0); Hemoglobin 11.1 g/dL (13.0-18.0); Mean Corp Hgb Conc. 32.6 g/dL (33.0-37.0); Mean Corpuscular Volume 100.6 fL (80.0-94.0); Platelet Count 240 10^3/uL (130-400); Red Cell Dist. Width 18.5 % (11.5-14.5)
[2025-07-08 13:51] LABS: Anisocytosis 1+; Hypochromasia 1+; Normal RBC Morphology No; Platelets Checked Yes; Polychromasia 1+
[2025-07-08 13:52] LABS: Ovalocytes 1+; Schistocytes RARE
[2025-07-08 13:53] LABS: Total Cells Counted 100
== END ==
LOC: SDSPAT 12:18
PROVIDERS: ATTENDING PHYSICIAN Internal Medicine Cardiovascular Disease; FAMILY PHYSICIAN Internal Medicine; OTHER PHYSICIAN Internal Medicine
DX: I48.0 Paroxysmal atrial fibrillation (principal)
CPT/HCPCS: 36415; 80053; 85025; 93005

== ENCOUNTER 2025-07-09 06:21 | Day surgery (SDC) | payer MEDICARE, OTHER, SELFPAY ==
[2025-07-08 12:51] VITALS: BMI 30.5
[2025-07-09] VITALS (20 sets, daily range): BP systolic 90–138; BP diastolic 52–73; BMI 29.7
--- NOTE | 2025-07-09 09:19 | ITS.CL.PACE ---
[employer] - Pacemaker Implant
Pacemaker Implant
Procedure Report:
Dual Chamber Pacemaker Placement:
Mr. 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
Indications: Tachy Megan syndrome
Date of the Procedure: 07/09/2025
Pre-Operative Diagnosis: Tachy Megan syndrome
Post-Operative Diagnosis: Tachy Megan syndrome
Procedure Performed: DUAL CHAMBER PACEMAKER IMPLANTATION
Performing Physician:
Huyen Willis MD
Anesthesia:
See anesthesia records
Pre-operative antibiotics:
Ancef 2gm IV
Detailed Description of the Procedure:
The patient was identified using hospital identification and informed consent obtained for the procedure. The risks were explained including, but not limited to: Bleeding, infection, arrhythmia, stroke, vascular/cardiac/lung puncture, surgery,
pacemaker dependency/device malfunction. All questions were answered.
The patient was brought to the electrophysiology laboratory in stable condition in fasting state. Continuous electrocardiographic and hemodynamic monitoring was initiated.
The initial rhythm was normal sinus rhythm.
A surgical pause and time out was performed immediately prior to the procedure with review of her medical history, recent labs, allergies and medications with site of procedure identified and consent noted in the chart. Antibiotics pre operatively
given. All team members concurred.
The procedure site was meticulously prepared with surgical scrub and allowed to dry with no pooling. Sterile draping was applied to cover the procedure site. The image intensifier was draped with sterile bag and positioned over the patient.
The right upper extremity venogram was done and the axillary route identified. There was patent subclavian vein. There was no cephalic vein noted. Following infiltration with local anesthetic, the axillary vein was accessed using the ultrasound
guidance using the micro-puncture apparatus. The vascular sheaths were introduced for lead access.
A subcutaneous pocket was created with blunt dissection and use of electrocautery. Hemostasis was excellent.
The guide wire was advanced to the RA and was advanced to the RV. The preformed curved long hemostatic peel away HIS sheath was advanced into the RV cavity. A left bundle pacing wire was advanced into the sheath to the tip with ventricular signals
noted with unipolar manner.
The HIS location was identified under guidance of the fluoroscopy and the pacing wire signals. The sheath with the pacing lead was moved deeper into the RV cavity on the septum at a more inferior and distal to the HIS signals.
There was sheath approximation confirmed on NIUEAN view. Once adequate signals were noted on the electrograms of the pacing lead in the sheath with W pattern signals on the RV septum, the lead was advanced and clockwise turns were done under
fluoroscopic guidance. The septum was engaged and the lead was paced intermittently after every 2-3 turns. The Impedance of the lead was measured that remained stable around 1000 Ohm. The lead was paced and septal pacing was noted. The sheath was
placed again to the septum and the lead was advanced 2-3 turns with pacing with each advancement. The ventricular capture was monitored throughout and the captures gradually changed from RV pacing to non-selective pacing to LBB pacing with R wave on
V1 morphology.
The long guiding sheath was cut and removed from the RV without change in lead position, impedance, sensing, or capture. The lead was sutured to the underlying pectoralis fascia with 0-silk stitches.
Then the attention was given to atrial lead. Atrial active lead was placed in the RA and into the RAA. There were excellent impedance and thresholds.
The sheaths were withdrawn, and the thresholds remained acceptable. The leads were secured in position at the venous entry site with Ti-Cron sutures. A pocket was fashioned contiguous to the incision.
The leads were attached to the pulse generator in standard configuration with acceptable sensing and threshold parameters. The pocket was irrigated with antibiotic solution; the pocket was inspected with no active bleeding noted. The device and the
leads were placed in the pocket.
The pocket was rinsed with antibiotics soaked solution.
Deep subcutaneous tissues were closed with three layers of 2-0 V loc sutures; and the dermis was reopposed using a running 4-0 Monocryl subcuticular suture.
Sponge counts / sharp counts were appropriate.
Procedure End:
The procedure was tolerated well. Aquacel bandaged was applied.
Estimated Blood loss:
5 cc
Specimens Removed:
No cultures and no specimens were obtained. No intraoperative pathology was identified.
Urine output:
None
Packs / Drains/ Tubes:
None
Instrument / Sponge Count Correct:
Yes
Flouro time:
6.2min / 5.1 Gycm2
Complications of the Procedure:
None
Condition of Patient at Time of Transfer:
Hemodynamically stable with no neurological or vascular compromise.
Device information:�
Generator: TeraFirrma; Model: W1DR01; Serial # [id number]�
RA pacing lead: TeraFirrma; Model: 5076-45; Serial # [id number]
Measured data on the RV lead was sensing of 2.6 mV, impedance of 437 ohms and threshold of 0.5 V at 0.4ms
RV LBB pacing lead: TeraFirrma; Model: 3830-69; Serial # [id number]
Measured data on the RV lead was sensing of 7.4mV, impedance of 760 ohms and threshold of 0.75 V at 0.4ms�
PROGRAMMING PARAMETERS:�
Megan parameter settings were AAIR <=> DDDR 60-130 �
Paced AV interval: 180ms
Sensed AV interval: 150 ms.
Rate Adaptive A-V Interval: on
Mode switch ON
Summary:
Successful implantation of MRI compatible dual chamber conduction system pacing permanent pacemaker.
Results/Recommendations:
-Please follow up CXR�
1. Please provide patient with adequate pain control
Instructions to be given to patient:�
- Please follow up with [facility] at [address] [place] [address] ([phone]) to get your wound checked within 14 days of your discharge.
- Do not wet incision site until after it is evaluated at cardiology clinic. No soaking or bath until then. Showers or Sponge baths are OK.�Dab dry the area after a shower.
- Do not lift right elbow above shoulder, particularly with sudden jerking movements, for 1 month�
- Do not lift anything weighing more than 10 pounds with the right arm for 1 month�
- If you notice any fevers, shortness of breath, lightheadedness, chest pain, or worsening swelling in the wound site, please contact the arrhythmia clinic, contact your sewer hand, or present to the hospital for evaluation.�
Huyen Willis MD
Electrophysiology
[2025-07-09] MEDS: TYLENOL 1000 MG PO (10:42)
[2025-07-09] MEDS: ANCEF 5 IV (13:51)
--- NOTE | 2025-07-09 15:48 | W.PN.UPDATE ---
Update Note
Progress Note Update
79 yo WM s/p PPM (same day). He denies cp,sob, nick diet, voiding, EKG SR with Apacing, CXR no PTX. He will resume Eliquis on Fri am. Activity restrictions reviewed. He has incision check in 1 week. He is for d/c home after 2p.
== END 2025-07-09 14:10 | disposition home or self-care (01) ==
LOC: CATH 06:21
PROVIDERS: ATTENDING PHYSICIAN Internal Medicine Cardiovascular Disease; FAMILY PHYSICIAN Internal Medicine; OTHER PHYSICIAN Internal Medicine
DX: I49.5 Sick sinus syndrome (principal); I48.0 Paroxysmal atrial fibrillation; I47.19 Other supraventricular tachycardia; I10 Essential (primary) hypertension; E78.00 Pure hypercholesterolemia, unspecified; Z79.01 Long term (current) use of anticoagulants; Z79.899 Other long term (current) drug therapy; I45.10 Unspecified right bundle-branch block; I49.1 Atrial premature depolarization
CPT/HCPCS: 33208; 71045; 93005; C1769; C1785; C1887; C1898

== ENCOUNTER 2025-08-12 07:02 | Inpatient (IN) | payer MEDICARE, OTHER, SELFPAY ==
--- NOTE | 2025-08-12 01:22 | ED.GENMED ---
History of Present Illness
General
Chief Complaint: Blood Pressure Problem
Source: patient
Exam Limitations: none
Time Seen by Provider: 08/12/25 01:20
Nursing documentation reviewed up to this point in time: agreed with
History of Present Illness
History of Present Illness:
79-year-old male presents to the emergency department via [facility] for multiple episodes of syncope with head strike. Patient states that he passed out approximately 3 times this evening. Upon arrival, patient's blood pressure was 60/40.
Initially, patient did not want to go to the hospital with EMS. I spoke to the patient via the command line and was able to convince him to come to the ER. Patient understands the gravity of the situation but states 'I was here for over a week in
March and did not want to come back to the hospital '. He ultimately came to the hospital. Patient was told in the recent past at the [facility] that he is anemic.
Patient has a past medical history consistent with stable aortic aneurysm, syncope, paroxysmal atrial fibrillation, atrial tachycardia, primary hypertension, hypercholesterolemia
Patient had an echocardiogram on 04/07/2025 with normal LV size and function, ejection fraction 61%, dilated aortic root 4.8 cm and ascending aorta.
On rectal exam, patient scantly Hemoccult positive. Stool was dark, but patient states that he has been eating beets recently for his anemia.
Past History
Past History
ED Past Medical History: Hypercholesterolemia and Other ('enlarged aorta')
ED Past Surgical History: Orthopedic
Social History
Tobacco: Non-smoker
Alcohol: None
Personal:
Living: with family
Phy Exam
General Physical Exam
General Presentation: well appearing and no apparent distress
General Skin: warm and dry
General Habitus: normal
General Mental: alert
General Hydration: appears well hydrated
ENT Exam
ENT Exam: EOMI, pharynx normal, neck supple and normocephalic
Eye Exam
Eye Exam: PERRL, cornea clear and conjunctiva normal
Cardiovascular Exam
Cardiovascular Exam: regular rate/rhythm, no edema, no murmur and normal peripheral pulses
Pulmonary Exam
Pulmonary Exam: lungs clear, no respiratory distress, no rales, no crackles, no rhonchi, no stridor, no wheezing and no cough
Gastrointestinal Exam
Gastrointestinal Exam: normal bowel sounds, non tender, soft, no organomegaly, no pulsatile mass and non distended
Rectal Exam: normal external exam
Stool: black
Guaiac Status: trace positive
Neurological Exam
Neurological Exam: alert, oriented x3, no motor deficits and speech normal
Musculoskeletal Exam
Musculoskeletal Exam: full ROM and no edema
Skin Exam
Skin Exam: warm/dry, no rash, no petechia and pallor
Psychiatric Exam
Psychiatric Exam: normal mood/affect
Course
Orders/Labs/Results
Orders:
Orders
08/12/25 01:20
Orthostatic VS- Treatment ONCE
0.9% Sodium Chloride 500 ml [Nss] 500 ml IV BOLUS
08/12/25 01:21
Electrocardiogram (*1) Stat
Reason for Study: Other
Other Reason for Exam: chest pain
Cardiac Monitoring- Treatment ONCE
EKG- Treatment ONCE
08/12/25 01:24
Complete Blood Count/With Diff Urgent
Comprehensive Metabolic Panel Urgent
Magnesium Urgent
NT-proBNP Urgent
PTT Urgent
Prothrombin Time Urgent
TSH Urgent
Troponin I Q3H
08/12/25 04:30
Troponin I Q3H
Abnormal Lab Results
08/12/25
01:24
RBC 2.52 L 10^6/uL
(4.70-6.10)
Hgb 8.4 L g/dL
(13.0-18.0)
Hct 24.8 L %
(39.0-52.0)
MCV 98.4 H fL
(80.0-94.0)
MCH 33.3 H pg
(27.0-31.0)
RDW 18.4 H %
(11.5-14.5)
MPV 12.1 H fL
(7.4-10.4)
PT 22.5 H Sec
(11.4-14.6)
APTT 40.7 H Sec
(23.4-35.0)
Glucose 114 H mg/dl
(70-99)
Total Protein 6.0 L g/dl
(6.3-8.2)
Albumin 3.3 L g/dl
(3.5-5.0)
TSH 0.34 L uIU/ml
(0.47-4.68)
08/12/25 01:24
08/12/25 01:24
Vital Signs
Initial and Last Documented VS:
Initial Vital Signs
Temp Pulse Resp BP Pulse Ox
97.8 F 88 18 103/63 93
08/12/25 01:16 08/12/25 01:16 08/12/25 01:16 08/12/25 01:16 08/12/25 01:16
Last Documented Vital Signs
Temp Pulse Resp BP Pulse Ox
97.8 F 84 19 103/63 93
08/12/25 01:16 08/12/25 01:17 08/12/25 01:17 08/12/25 01:16 08/12/25 01:26
*Pulse Oximetry
SaO2: 93
Oxygen Mode of Delivery: Room air
Patient hypoxic: no
*Critical Care Note
Total Time (30-74mins, 75-104mins- exclusive of procedures): 30 (Critical care statement: A total of 30 minutes of critical care time was provided for this patient. This time is separate from time utilized to perform the aforementioned documented
procedures. Aggregate critical care time includes only time during which I was engaged in work directl)
ED Attending Note
-
Portions of this chart may have been created with voice recognition software.� Occasional wrong word or��sound alike� substitutions may have occurred due to the inherent limitations of voice recognition software.
Discharge Plan
Departure
Patient Disposition: Admit
Date of Disposition: 08/12/25
Time of Disposition: 03:14
Admit to: Telemetry
Presentation/result/management discussed w/ accepting MD/DO: Hospitalist
Condition: Good
Discharge Problem:
Syncope and collapse, Anemia, GI bleed, Orthostatic hypotension
Prescriptions:
No Action
atorvastatin [Lipitor] 10 mg Tablet
10 mg PO HS
cholecalciferol (vitamin D3) [Vitamin D3] 50 mcg (2,000 unit) Capsule
50 mcg PO HS
Eliquis 5 mg Tablet
5 mg PO BID
ondansetron HCl 4 mg Tablet
4 mg PO Q6H PRN (Reason: nausea)
tamsulosin 0.4 mg Capsule
0.4 mg PO DAILY
omeprazole 20 mg Capsule,Delayed Release(Dr/Ec)
20 mg PO DAILY
Referrals:
Santiago Avila DO [Family Provider, Internal Medicine]
Interventions
Interventions:
*General Assessment Last Done: 08/12/25 01:16
*Neglect/Abuse Screening Last Done: 08/12/25 01:16
*ED Influenza Vaccine History Last Done: 08/12/25 01:16
[facility] Risk Assessment Tool Last Done: 08/12/25 01:21
*Risk Screen - Suicide (C-SSRS) Last Done: 08/12/25 01:16
ED- Cardiac Assessment Last Done: 08/12/25 02:12
ED- Neurological Assessment Last Done: 08/12/25 02:12
ED- Pulmonary Assessment Last Done: 08/12/25 02:12
Discharge Date and Time
Print Language: MALAYSIAN
[2025-08-12] MEDS: NSS 500 IV (01:38)
[2025-08-12 01:43] LABS: Hematocrit 24.8 % (39.0-52.0); Hemoglobin 8.4 g/dL (13.0-18.0); Mean Corp Hgb Conc. 33.9 g/dL (33.0-37.0); Mean Corpuscular Volume 98.4 fL (80.0-94.0); Platelet Count 153 10^3/uL (130-400); Red Cell Dist. Width 18.4 % (11.5-14.5)
[2025-08-12 01:50] LABS: APTT 40.7 Sec (23.4-35.0); INR 1.96; PT 22.5 Sec (11.4-14.6)
[2025-08-12 01:55] LABS: ALT (SGPT) 16 U/L (0-50); AST (SGOT) 22 U/L (17-59); Albumin 3.3 g/dl (3.5-5.0); Alkaline Phosphatase 95 U/L (38-126); Blood Urea Nitrogen 17 mg/dl (9-20); Calcium 9.1 mg/dl (8.4-10.2); Carbon Dioxide 25 mmol/L (22-30); Chloride 106 mmol/L (98-107); Estimated Creatinine Clearance 67 ml/min; Glucose 114 mg/dl (70-99); Magnesium 1.8 mg/dl (1.6-2.3); Potassium 3.8 mmol/L (3.5-5.1); Sodium 137 mmol/L (135-145); Total Protein 6.0 g/dl (6.3-8.2); eGFR > 60.00
[2025-08-12 02:08] LABS: Troponin I < 0.012 ng/ml
[2025-08-12 02:26] LABS: TSH 0.34 uIU/ml (0.47-4.68)
[2025-08-12 06:21] LABS: Troponin I 0.013 ng/ml
--- NOTE | 2025-08-12 06:41 | HPS.HSE ---
Family Physician
-
Family Physician: Santiago Avila
Chief Complaint
-
Fall / Syncope
History of Present Illness
Patient is a 79y M with PMH significant for hypertension, paroxysmal A-Fib and BPH who presents to ED complaining of syncopal episode(s) at home. Patient states that he was taking his evening pills and he 'tipped my head back' to swallow. The
next thing he knew he was seated in a chair with family around him. Family reported that patient lost consciousness and fell backward. He struck the back of his head on a nearby recliner and has a small, superficial abrasion. Family attempted to
help him up into a chair and he reportedly lost consciousness 2-3 additional times. He eventually 'came to' in a seated position. EMS arrived and patient was noted to be hypotensive with systolic pressure in the 60s.
He presented to ED for further evaluation.
Patient states that he has been becoming dizzy quite frequently.
He has newly diagnosed A-Fib and is s/p PPM placement on 07/09/25.
He denies any chest pain or dyspnea. No fevers / chills.
No GI complaints.
Medical History
Past Medical History
Past Medical History: Reports Other
Additional Past Medical History:
Paroxysmal Atrial Fibrillation
Hypertension
Ascending Aortic Aneurysm
BPH
Past Surgical History: Reports Other
Additional Past Surgical History:
PPM Placement (07/09/25)
Bilateral ROCHELLE
Mohs Surgery
Social History
Tobacco: Non-smoker
Alcohol: None
Drug: None
Family History
Family History: Not pertinent
Allergies / Home Medications
Allergies reflects when Allergies were last updated in [employer].
Home Medications with original date entered in [employer]
Allergy/Medication List:
Allergies
Allergy/AdvReac Type Severity Reaction Status Date / Time
adhesive Allergy itchy and Verified 07/09/25 07:03
redness
Home Medications
atorvastatin 10 mg tablet (Lipitor) 10 mg PO HS High Cholesterol 10/22/23
apixaban 5 mg tablet (Eliquis) 5 mg PO BID 07/06/25
Held on 07/09/25. Instructions: Resume on 07/10/25.
ondansetron HCl 4 mg tablet 4 mg PO Q6H PRN nausea 07/06/25
omeprazole 20 mg capsule,delayed release 20 mg PO DAILY 07/09/25
tamsulosin 0.4 mg capsule 0.4 mg PO DAILY 07/09/25
famotidine 20 mg tablet (Pepcid) 20 mg PO DAILY PRN indigestion 08/12/25
glucosamine sulfate 500 mg tablet 500 mg PO BID PRN other 08/12/25
Review of Systems
-
History Source: Patient
A 12 point ROS was completed and negative except as noted: Yes
Constitutional: Reports Fatigue; Denies Fever or Chills
Respiratory: Denies Cough or Trouble Breathing
Cardiac: Reports Syncope; Denies Chest Pain or Palpitations
Abdomen/GI: Denies Abdominal Pain, Nausea, Vomiting or Diarrhea
: Denies Dysuria, Frequency or Flank Pain
Musculoskeletal: Denies Joint Pain or Edema
Neurological: Reports Dizzy; Denies Headache
Psych: Denies Depression or Anxiety
Physical Exam
Vital Signs
Vital Signs
Temp Pulse Resp BP Pulse Ox
97.8 F 74 20 94/56 90
08/12/25 01:16 08/12/25 04:30 08/12/25 04:30 08/12/25 03:00 08/12/25 04:30
Physical Exam
General: Other (Slightly pale-appearing 79y M in no acute distress.)
HEENT: Moist mucous membranes and PERRLA
Respiratory: Clear; No Wheezes, Rales or Rhonchi
Cardiac: S1/S2 and Regular Rhythm; No Murmur
GI: Soft, Non Tender, Non Distended and Normal Bowel Sounds
Musculoskeletal: No Clubbing, No Cyanosis and No Edema
Neuro: AO x 3
Laboratory Results
-
08/12/25 01:24
08/12/25 01:24
Laboratory Results
PT 22.5 Sec (11.4-14.6) H 08/12/25 01:24
INR 1.96 08/12/25 01:24
APTT 40.7 Sec (23.4-35.0) H 08/12/25 01:24
Total Bilirubin 0.4 mg/dl (0.2-1.3) 08/12/25 01:24
AST 22 U/L (17-59) 08/12/25 01:24
ALT 16 U/L (0-50) 08/12/25 01:24
Alkaline Phosphatase 95 U/L (38-126) 08/12/25 01:24
Troponin I 0.013 ng/ml 08/12/25 05:18
Impression/Plan
-
A/P: Patient is a 79y M with PMH significant for hypertension and newly diagnosed A-Fib who presents to ED for evaluation after syncopal episode(s) at home.
Syncope
Hypotension
- Admit for further evaluation and treatment.
- ? orthostatic hypotension on tamsulosin with positional head / neck changes.
- Check cerebrovascular US.
- Hold tamsulosin.
- IVFs. Follow orthostatic vital signs.
- PT / OT evaluation.
- Monitor on telemetry. PPM interrogation requested but report not yet received.
Acute on Chronic Anemia
- Hgb = 8.4 compared to recent value of 11.1.
- Heme positive stool in the ED.
- Patient reports constipation and rare blood streaks in stools. No other noted bleeding.
- Hold Eliquis for now.
- GI evaluation.
- PPI daily.
- Follow H&H and transfuse if needed.
Paroxysmal Atrial Fibrillation
- s/p PPM on 07/09. Paced at present.
- Monitor on tele as noted above.
- Hold Eliquis acutely.
BPH
- Hold tamsulosin given syncope / orthostasis.
- Bladder scan protocol
DVT Prophylaxis: SCDs
Code Status: Full
[2025-08-12] MEDS: NSS 1000 IV ×2 (07:17→18:31)
[2025-08-12 07:21] LABS: Hematocrit 24.6 % (39.0-52.0); Hemoglobin 8.3 g/dL (13.0-18.0)
[2025-08-12 07:46] LABS: Troponin I 0.014 ng/ml
[2025-08-12] MEDS: NSS (PRESERVATIVE FREE) 10 ML IV (07:52)
[2025-08-12] MEDS: PROTONIX IV 40 MG IV (07:52)
[2025-08-12 08:16] LABS: Absolute Neutrophils -Man Diff 8.4 10^3/uL (1.4-6.5)
[2025-08-12 08:18] LABS: Normal RBC Morphology Yes; Platelets Checked Yes; Total Cells Counted 100
--- NOTE | 2025-08-12 09:12 | W.PN.HOSP.TC ---
Today's Communication/Plan
-
Hold Eliquis
GI evaluation for
Iron stores.
Follow hemoglobin.
Carotid ultrasound.
Orthostatic vitals.
Interrogate pacemaker.
Assessment / Plan
Assessment / Plan
Impression
Patient is a 79y M with PMH significant for hypertension and newly diagnosed A-Fib who presents to ED for evaluation after syncopal episode(s) at home.
Syncopal episode
Multifactorial hypotension
Acute on chronic normocytic anemia
Paroxysmal atrial fibrillation. Tachybradycardia syndrome status post pacemaker placement
Anticoagulation with Eliquis
BPH
Imaging
Echocardiogram 04/19
1. Normal biventricular size and systolic function without regional wall motion abnormality. LVEF 61%.
2. Dilated aortic root (4.8 cm) and ascending aorta (4.7 cm).
3. Mild to moderate aortic regurgitation.
4. Compared to prior TTE in May 2024, aortic regurgitation has progressed from mild to mild to moderate. Aortic size is stable.
Plan
Syncope, multiple episodes without prodrome at home.
Hypotension possibly orthostatic hypotension upon presentation, multifactorial while on tamsulosin acute on chronic anemia
Improving with IV fluid bolus
Pacemaker interrogation
Carotid ultrasound
Hold Flomax
Paroxysmal atrial fibrillation.
Tachybradycardia syndrome status post pacemaker placement months prior to presentation
ECG atrially paced
Pacemaker interrogation pending
Cardiology evaluation
[id number] 2 (age, male) holding Eliquis for anemia workup
Acute on chronic anemia (hemoglobin trending down to 8.4 compared with recent value of 11.1
Heme positive stool in the ED.
Patient reports chronic constipation with rare black streaks in stool, no brisk bleeding.
Most recent colonoscopy 2020 with transverse polypectomy.
Most recent EGD 04/20 unremarkable.
Update iron stores.
GI evaluation.
IV PPI.
Hold Eliquis acutely. Follow hemoglobin levels.
BPH.
Hold Flomax secondary to hypotension
Bladder scan per protocol
Anticipated Discharge: 24 - 48 hours
Subjective/Interval History
-
Date of Service: August 12, 2025
Objective Data
-
Labs:
Laboratory Results
08/12/25 08/12/25 08/12/25
01:24 07:15 14:51
WBC 9.7
Hgb 8.4 L 8.3 L Pending
Hct 24.8 L 24.6 L Pending
Plt Count 153
PT 22.5 H
INR 1.96
APTT 40.7 H
Sodium 137
Potassium 3.8
Chloride 106
Carbon Dioxide 25
BUN 17
Creatinine 1.0
Glucose 114 H
Calcium 9.1
Total Bilirubin 0.4
AST 22
ALT 16
Alkaline Phosphatase 95
08/12/25
22:51
WBC
Hgb Pending
Hct Pending
Plt Count
PT
INR
APTT
Sodium
Potassium
Chloride
Carbon Dioxide
BUN
Creatinine
Glucose
Calcium
Total Bilirubin
AST
ALT
Alkaline Phosphatase
Vital Signs:
Vital Signs
Temp Pulse Resp BP Pulse Ox
97.8 F 67 16 117/67 96
08/12/25 01:16 08/12/25 09:05 08/12/25 09:05 08/12/25 09:05 08/12/25 09:05
I&O
08/11/25 08/12/25 08/13/25
06:59 06:59 06:59
Output Total 500 / 500
Balance -500 / -500
Physical Exam
-
General: Well Developed and No Apparent Distress
HEENT: Normocephalic, Atraumatic and Moist Mucous Membranes
Respiratory: Clear to Auscultation
Cardiac: Regular Rhythm and S1/S2; Negative Murmur, Rub or Gallop
GI: Soft, Nontender, Nondistended and Normal Bowel Sounds; Negative Organomegaly
Rectal: Deferred by Provider
Musculoskeletal: No Clubbing, No Cyanosis and No Edema
Skin: Negative Rash
Neuro: Nonfocal/Grossly Intact
--- NOTE | 2025-08-12 09:25 | CON.GI ---
Addendum entered and electronically signed by Quincy Phoenix MD 08/12/25 12:37:
I saw and examined the patient.
The DETAILER FURNITURE or PA's note was reviewed and I agree with the note.
Comment: 79yo male presents after n/v last night then tried to take pill, threw his head back and had syncopal episode. He has had intermittent chills, and n/v episodes and had EGD in March during admission that showed hiatal hernia, bx negative
HP/celiac/EoE. Hgb 8.4 down from 11.1 on 07/08/25. He sees occasional blood on TP, no melena. Last colonoscopy 2020. After EGD, he has seen Dr Winn, had GES that was normal. Denies NSAIDs. He reports hx malaria in [place] and asked about his
chills. HE had elevated WBC during prior adm and saw ID. He had pacer placed 07/09/25 for tachy/megan syndrome and is getting Cardiac eval.
REC:
Cardiology eval for recent pacer, syncope eval
Drop in Hgb noted. Only scant blood noted on TP episodically
Monitor BMs, I doubt GI bleed is cause for his syncope. If he does have active bleed, then consider EGD/colonoscopy after cards eval. He had negative EGD in March for eval of these symptoms. Last colonoscopy 2020.
PPI
Original Note:
Consultation
-
Date/Time Consultation Requested: 08/12/25, 6:51am
Date/Time Consultation Performed: 08/12/25, 10.30am
Requesting Provider: Aiden Morales MD,
Performing Provider: Randi Wolf MD for Quincy Phoenix MD
Reason for Consultation: heme positive stool, Anemia, and syncope
Medical History
Chief Complaint / HPI
Chief Complaint: Syncope
History of Present Illness:
79-year-old male with past medical history significant for hypertension, paroxysmal A-fib recently placed on Eliquis with a pacemaker placement both on 07/09/2025 during his most recent hospitalization and BPH presents to the ER for evaluation of
syncope. His symptoms started with nausea and vomiting, he had 3 episodes of vomiting which contain clear fluids with his dinner, and is nonbloody, nonbilious. After his vomitings he came down to take a pill, had a sensation of pill stuck in his
throat and tried to bang his head backward to drink water and took a fall back, and hit his head. He reports to have regained consciousness on the floor and calling his , his family came to his help and lifted him up and he had few more
episodes of syncope according to family before he was helped onto the couch. He does not recall the other 2 syncopal episodes. He reports to have been having pinehorn type of stools with irregular bowel movements. He reports dizziness
specifically from sitting to sanding. He reports to have noticed fresh blood on his stool at the end of his bowel movement with some fresh blood on the toilet tissue about 4-5 times in the last 2 months.
He follows up with Dr. Winn on outpatient basis, had a recent gastric emptying scan which was normal, and he was recommended to have 7 small meals a day which patient states is hard for him yet he is trying somewhere between 4-5 small meals a day.
He had an upper GI endoscopy that showed 1 cm hiatal hernia, with negative biopsies for celiac disease, and a colonoscopy in 2020 that showed a 6 mm transverse polyp with internal hemorrhoids. He never sought attention to internal hemorrhoids.
Past Medical History
Past Medical History: Other (Paroxysmal A-fib with tachybradycardia syndrome, s/p pacemaker placement (June 2025), hypertension, benign prostatic hyperplasia, ascending aortic aneurysm.)
Past Surgical History: Other (Bilateral total hip arthroplasties, pacemaker placement, Mohs surgery.)
Social History
Tobacco: Non-Smoker
Alcohol: None
Drug: None
Personal:
Living: With Family
Employment: Retired
Family History
Family History: Reviewed & Not Pertinent
Allergies / Home Medications
Allergy/AdvReac Type Severity Reaction Status Date / Time
adhesive Allergy itchy and Verified 11/13/25 07:03
redness
�Medication �Instructions �Recorded
atorvastatin 10 mg tablet (Lipitor) 10 mg PO HS High Cholesterol 10/22/23
ondansetron HCl 4 mg tablet 4 mg PO Q6H PRN nausea 07/06/25
omeprazole 20 mg capsule,delayed 20 mg PO DAILY 07/09/25
release
tamsulosin 0.4 mg capsule 0.4 mg PO DAILY 07/09/25
apixaban 5 mg tablet (Eliquis) 5 mg PO BID 08/12/25
cholecalciferol (vitamin D3) 25 25 mcg PO QPM 08/12/25
mcg (1,000 unit) tablet (Vitamin
D3)
glucosamine sulfate 500 mg tablet 500 mg PO BID PRN other 08/12/25
Review of Systems
-
History Source: Patient
EENT: Reports No Symptoms
Respiratory: Reports No Symptoms
Cardiac: Reports Syncope
Abdomen/GI: Reports Nausea, Vomiting, Constipated and Pain (rectal pain when passing stools(tenesmus)); Denies Bloody Stools, Black Stools or Anorexia
: Reports No Symptoms
Musculoskeletal: Reports No Symptoms
Skin: Reports No Symptoms
Neurological: Reports No Symptoms
Endocrine: Reports No Symptoms
Hematologic/Lymphatic: Reports No Symptoms
Vital Signs
Temp Pulse Resp BP Pulse Ox
97.8 F 67 16 117/67 96
08/12/25 01:16 08/12/25 09:05 08/12/25 09:05 08/12/25 09:05 08/12/25 09:05
Physical Exam
Exam
General: No Apparent Distress and Comfortable
HEENT: Other (Abrasion wound on the occiput, clean.)
Respiratory: Clear; Negative Wheezes, Rales or Rhonchi
Cardiac: S1/S2, Regular Rhythm, Peripheral Edema (Right ankle 1+ pitting edema, no skin color changes.) and Carotid Pulses (No carotid bruit); Negative Murmur, Rub or JVD
GI: Soft, Non Tender, Non Distended, Normal Bowel Sounds and Organomegaly (Huge abdominal habitus, not appreciated.)
Musculoskeletal: No Clubbing, No Cyanosis and Edema (Unilateral, right ankle, 1+ pitting edema, attributes it to hip arthroplasty.)
Neuro: AO x 3 and Other (Dizziness, from sitting to standing.)
Psych: Calm
Results
WBC 9.7 10^3/uL (4.8-10.8) 08/12/25 01:24
Hgb 8.3 g/dL (13.0-18.0) L 08/12/25 07:15
Hct 24.6 % (39.0-52.0) L 08/12/25 07:15
MCV 98.4 fL (80.0-94.0) H 08/12/25 01:24
Plt Count 153 10^3/uL (130-400) 08/12/25:24
PT 22.5 Sec (11.4-14.6) H 08/12/25 01:24
INR 1.96 08/12/25:24
APTT 40.7 Sec (23.4-35.0) H 08/12/25 01:24
Sodium 137 mmol/L (135-145) 08/12/25:24
Potassium 3.8 mmol/L (3.5-5.1) 08/12/25:24
Chloride 106 mmol/L (98-107) 08/12/25 01:24
Carbon Dioxide 25 mmol/L (22-30) 08/12/25 01:24
BUN 17 mg/dl (9-20) 08/12/25 01:24
Creatinine 1.0 mg/dL (0.7-1.3) 08/12/25 01:24
Calcium 9.1 mg/dl (8.4-10.2) 08/12/25 01:24
Total Bilirubin 0.4 mg/dl (0.2-1.3) 08/12/25 01:24
AST 22 U/L (17-59) 08/12/25 01:24
ALT 16 U/L (0-50) 08/12/25 01:24
Alkaline Phosphatase 95 U/L (38-126) 08/12/25 01:24
Diagnostic Image Results:
Head CT-08/12/2025-no acute intracranial abnormality
Vascular ultrasound-08/12/2025-results pending.
Prior GI Procedures:
EGD: 04/09/2025-
Findings:
- The esophagus was normal. Biopsies were taken with a cold
forceps for histology. Biopsies were obtained in the middle third of
the esophagus with cold forceps for histology.
- A 1 cm hiatal hernia was present.
- The entire examined stomach was normal. Biopsies were taken with
a cold forceps for histology.
- The examined duodenum was normal. Biopsies for histology were
taken with a cold forceps for evaluation of celiac disease.
Impression:
- Normal esophagus. Biopsied.
- Biopsies were obtained in the middle third of the esophagus.
- 1 cm hiatal hernia.
- Normal stomach. Biopsied.
- Normal examined duodenum. Biopsied.
Biopsy negative for celiac disease.
Colonoscopy: 05/25/2021
Impression: - One 6 mm polyp in the transverse colon, removed with
a cold snare. Complete resection. Polyp tissue not
retrieved.
- Internal hemorrhoids.
Recommendation: - Await pathology results.
- Discharge patient to home (ambulatory).
Assessment / Plan
-
Assessment-
79-year-old male with past medical history significant for paroxysmal A-fib on Eliquis (charted in June 2025), tachybradycardia syndrome s/p pacemaker placement, essential hypertension, BPH is admitted to the hospital for evaluation of syncope.
GI is consulted for evaluation of anemia and Hemoccult blood stools.
Problem list-
# Syncope
# Anemia with Hemoccult positive blood stools
# Dizziness
# Paroxysmal A-fib on Eliquis, last dose 10 PM on 08/11
# Tachybradycardia syndrome s/p pacemaker placement
# History of internal hemorrhoids
# History of constipation
Plan-
Patient syncope could possibly be multifactorial in etiology. Appreciate primary team workup for syncope.
Hemoglobin on 07/09/25-11.1, hemoglobin on 08/12/2020 5-8.4, with macrocytosis, MCV-99.8, pending iron studies.
AST, ALT, total bili, alk phos within normal limits. In the setting of history of internal hemorrhoids and ongoing chronic constipation his bleeding could be possibly from hemorrhoids. Initiate bowel regimen with twice daily MiraLAX, and as needed
Dulcolax.
As his syncopal episodes are preceded by nausea and vomiting patient may need workup with both upper GI endoscopy for evaluation of a peptic ulcer disease and colonoscopy/ flexible sigmoidoscopy.
Will hold off on further workup, pending primary team evaluation.
-
-
Thank you for consultation and allowing me to participate in the patient's care. Please call the director of automation GI physician during the after hours with any questions or concerns.
[2025-08-12 10:12] LABS: Iron 55 ug/dl (49-181)
[2025-08-12] MEDS: TYLENOL 650 MG PO ×2 (10:21→16:37)
[2025-08-12 10:22] LABS: Total Iron Binding Capacity 154 ug/dl (261-462)
--- NOTE | 2025-08-12 11:10 | CON.CAR ---
Addendum entered and electronically signed by Kai Dotson MD 08/12/25 13:51:
Patient seen and examined in collaboration with JOURNEYMAN WIREMAN; agree with below.
- 79-year-old male with tachycardia-bradycardia syndrome status-post Medtr[employer] permanent pacemaker implantation (07/09/2025), ascending aortic aneurysm (4.7 cm), mild aortic regurgitation, hyperlipidemia, obesity, and untreated RUPERT presented with
syncope. The patient lost consciousness when trying to swallow pills; he is known to have orthostatic hypotension previously.
- Exam: Regular rate and rhythm; lungs CTA bilaterally.
- Device interrogation today revealed normal device function and no events.
- Patient most likely had orthostatic/vasovagal syncope.
- The patient was found to have heme positive stools; GI consulted--will need to hold Eliquis for now.
Original Note:
Consultation
Consultation Request
Date/Time Consultation Requested: 08/12/25 0854
Date/Time Consultation Performed: 08/12/25 1111
Requesting Provider: Dr. Claire
Performing Provider: Savana MILLAN for Dr. Dotson
Reason for Consultation: syncope
Medical History
-
Chief Complaint: syncope
History of Present Illness:
79 y/o male with ascending aortic aneurysm (4.7 cm), mild aortic regurgitation, hyperlipidemia, obesity, prediabetes, untreated RUPERT, PAF on Eliquis, and bradycardia. He was diagnosed was tachy-megan syndrome and is s/p Medtronic pacemaker with
Lazaro on 07/09/25. He is here for evaluation of syncope. Briefly, last night he had vomiting after dinner around 830 PM. Later around 10:30, he reports that he woke up to take his pills. One got stuck on the roof of his mouth and so he threw his
head back to take it and woke up on the floor. Family helped him to the chair and he was told he passed out again. He was noted to be hypotensive, which has improved s/p IVF. He is in no distress at the time of my assessment. Hemoglobin is noted to
be reduced from last month. Heme+ stool per chart. Eliquis held in this setting.
Past Medical History
Past Medical History: Arrhythmias, Hypercholesterolemia and Other (as above)
Social History
Tobacco: Non-Smoker
Family History
Family History: Reviewed & Not Pertinent
Allergies / Home Medications
Allergy/AdvReac Type Severity Reaction Status Date / Time
adhesive Allergy itchy and Verified 07/09/25 07:03
redness
�Medication �Instructions �Recorded �Confirmed �Type
atorvastatin 10 mg tablet (Lipitor) 10 mg PO HS High Cholesterol 10/22/23 08/12/25 History
ondansetron HCl 4 mg tablet 4 mg PO Q6H PRN nausea 07/06/25 08/12/25 History
omeprazole 20 mg capsule,delayed 20 mg PO DAILY 07/09/25 08/12/25 History
release
tamsulosin 0.4 mg capsule 0.4 mg PO DAILY 07/09/25 08/12/25 History
apixaban 5 mg tablet (Eliquis) 5 mg PO BID 08/12/25 08/12/25 History
cholecalciferol (vitamin D3) 25 25 mcg PO QPM 08/12/25 08/12/25 History
mcg (1,000 unit) tablet (Vitamin
D3)
glucosamine sulfate 500 mg tablet 500 mg PO BID PRN other 08/12/25 08/12/25 History
Review of Systems
-
History Source: Patient
All other systems: Negative unless noted
Cardiac: Syncope
Physical Exam
Vital Signs
Temp Pulse Resp BP Pulse Ox
97.8 F 69 21 112/70 96
08/12/25 01:16 08/12/25 09:30 08/12/25 09:30 08/12/25 09:16 08/12/25 09:30
Lab Results
08/12/25 01:24
Troponin I 0.014 ng/ml 08/12/25 07:15
Ztu-M-[id number] Pept 790 pg/ml 08/12/25 01:24
Physical Exam
General: Well Developed, Well Nourished and No Apparent Distress
HEENT: Normocephalic and Anicteric
Respiratory: Clear and Non Labored Respirations
Cardiac: Regular Rhythm
Skin: Warm and Dry
Neuro: AO x 3
Psych: Calm
Impression / Plan
-
Syncope:
-interrogate pacemaker- done by me- per our device nurse- no AFIB, no high rates, AP 74%, RADIATOR CORE TESTER <1%.
-obtain echo to r/o effusion- done- awaiting read by signal system testing maintainer, but prelim from manufacturing engineering technician- no effusion
-vagal response with taking pills (one was stuck) versus orthostasis
-BP's were low, now improved s/p IV fluids
-anemia w/u
-orthos ordered
-tamsulosin held
Anemia:
-heme+ stool, so GI consulted
-Eliquis held
-monitor hgb closely
PAF:
-stable in SR currently
-Eliquis held for anemia w/u
Bradycardia:
-PPM in place
Data:
Echo 04/07/25: Normal biventricular size and systolic function without regional wall motion abnormality. LVEF 61%. Dilated aortic root (4.8 cm) and ascending aorta (4.7 cm). Mild to moderate aortic regurgitation. Compared to prior TTE in May
2023, aortic regurgitation has progressed from mild to mild to moderate. Aortic size is stable.
Data Reviewed
-
EKG: Tracing Personally Visualized and interpreted (NSR 84 BPM, LAD)
CT Scan: Report Reviewed by me (head CT: No acute intracranial abnormality.)
Medical Tests (Nuc Med, Echo etc): Report Reviewed by me
Labs: Labs Reviewed by me
[2025-08-12 13:57] LABS: Hematocrit 24.1 % (39.0-52.0); Hemoglobin 7.8 g/dL (13.0-18.0)
[2025-08-12 14:12] LABS: Iron 65 ug/dl (49-181)
[2025-08-12 14:22] LABS: Total Iron Binding Capacity 149 ug/dl (261-462)
[2025-08-12 14:25] LABS: Troponin I < 0.012 ng/ml
--- NOTE | 2025-08-12 15:13 | EDCM ---
Reviewed chart and met with pt and his bedside in ED. They live in multistory home, [address], 11 steps between floors, has railings on stairs.
Independent in ADLs, personal care and ambulation at baseline, no assistive devices. Still drives.
PMH includes Afib, BPH, aortic aneurysm and pacemaker insertion.
Confirms prescription coverage, per pt [facility] will be supplying Eliquis, [place] [facility] [place] [facility].
Hx HH after Hip replacement, no hx SNF
PCP: Santiago Avila
Pharmacy: [facility] in [place], [place] for Eliquis
Anticipate discharge home, CM will continue to follow for all discharge planning needs.
[2025-08-12 15:18] LABS: Ferritin 517.0 ng/ml (17.9-464.0); Vitamin B12 > 1000 pg/ml (239-931)
[2025-08-12 16:34] LABS: Ferritin 483.0 ng/ml (17.9-464.0)
[2025-08-12 16:49] LABS: Vitamin B12 > 1000 pg/ml (239-931)
[2025-08-12] MEDS: LIPITOR 10 MG PO (20:04)
[2025-08-12] MEDS: MIRALAX 17 GRAMS PO (20:05)
[2025-08-13 00:14] LABS: Hematocrit 23.1 % (39.0-52.0); Hemoglobin 7.7 g/dL (13.0-18.0)
[2025-08-13 00:50] LABS: Troponin I < 0.012 ng/ml
[2025-08-13 08:08] LABS: Hematocrit 25.1 % (39.0-52.0); Hemoglobin 8.3 g/dL (13.0-18.0); Mean Corp Hgb Conc. 33.1 g/dL (33.0-37.0); Mean Corpuscular Volume 98.0 fL (80.0-94.0); Platelet Count 125 10^3/uL (130-400); Red Cell Dist. Width 18.4 % (11.5-14.5)
[2025-08-13 08:24] LABS: Blood Urea Nitrogen 15 mg/dl (9-20); Calcium 9.5 mg/dl (8.4-10.2); Carbon Dioxide 24 mmol/L (22-30); Chloride 107 mmol/L (98-107); Estimated Creatinine Clearance 81 ml/min; Glucose 83 mg/dl (70-99); Potassium 4.1 mmol/L (3.5-5.1); Sodium 137 mmol/L (135-145); eGFR > 60.00
[2025-08-13] MEDS: TYLENOL 650 MG PO (09:06)
[2025-08-13] MEDS: NSS (PRESERVATIVE FREE) 10 ML IV (09:06)
[2025-08-13] MEDS: MIRALAX PO ×2 (09:06→09:08)
[2025-08-13] MEDS: PROTONIX IV 40 MG IV (09:06)
--- NOTE | 2025-08-13 10:03 | W.PN.CD ---
Today's Communication / Plan
-
- Device interrogation yesterday revealed normal device function and no events.
- Patient most likely had orthostatic/vasovagal syncope.
- No pericardial effusion on echocardiogram yesterday.
- Eliquis is being held; resume once cleared by GI--can proceed with any workup from a cardiac standpoint.
Impression / Plan
-
Syncope:
- The patient lost consciousness when trying to swallow pills; he is known to have orthostatic hypotension previously.
- Device interrogation yesterday revealed normal device function and no events.
- Patient most likely had orthostatic/vasovagal syncope.
- No pericardial effusion on echocardiogram yesterday.
Anemia:
- Heme+ stool; GI consulted.
- Eliquis is being held; resume once cleared by GI--can proceed with any workup from a cardiac standpoint.
- Continue to monitor hgb closely.
PAF:
- Stable.
- Eliquis is being held for anemia workup.
PPM:
- Stable; no events.
Moderate aortic regurgitation:
- Currently stable; will continue to monitor as outpatient.
Data:
Echo 04/07/25: Normal biventricular size and systolic function without regional wall motion abnormality. LVEF 61%. Dilated aortic root (4.8 cm) and ascending aorta (4.7 cm). Mild to moderate aortic regurgitation. Compared to prior TTE in May
2023, aortic regurgitation has progressed from mild to mild to moderate. Aortic size is stable.
Physical Exam
Vital Signs/Labs
Vital Signs
Temp Pulse Resp BP Pulse Ox
97.5 F 62 16 125/68 96
08/13/25 07:53 08/13/25 07:53 08/13/25 07:53 08/13/25 07:53 08/13/25 07:53
08/12/25 08/13/25 08/14/25
06:59 06:59 06:59
Actual Weight 94 kg 89.528 kg
08/13/25 07:30
08/13/25 07:30
PT 22.5 Sec (11.4-14.6) H 08/12/25 01:24
INR 1.96 08/12/25 01:24
APTT 40.7 Sec (23.4-35.0) H 08/12/25 01:24
Magnesium 1.8 mg/dl (1.6-2.3) 08/12/25 01:24
TSH 0.34 uIU/ml (0.47-4.68) L 08/12/25 01:24
Free T4 0.46 ng/dl (0.78-2.19) L 08/12/25 13:46
08/12/25
01:24
Ctt-[id number] Pept 790
LAB Results
08/12/25 08/12/25 08/12/25
01:24 05:18 07:15
Troponin I < 0.012 0.013 0.014
08/12/25 08/12/25
13:46 23:50
Troponin I < 0.012 < 0.012
Physical Exam
Constitutional: No acute distress and Comfortable
EENT: Anicteric
Cardiovascular: Pedal edema is absent, Systolic murmur absent, Rhythm/rate is irregular and S1S2 is normal
Respiratory: Respiratory effort normal and Rhonchi Present (Bibasilar)
GI: Soft
Neuro/Psych: AO x 3
Other: Skin (Warm, dry, intact)
Data Reviewed
-
Date of Service: August 13, 2025
EKG: Tracing Personally Visualized and interpreted (Telemetry: PAF)
Echo: Tracing Personally Visualized and interpreted (EF 60-65%; aortic sclerosis without stenosis, moderate aortic regurgitation; no pericardial effusion.)
Labs: Labs Reviewed by me
--- NOTE | 2025-08-13 10:43 | W.PN.GI.CBS2 ---
Today's Communication / Plan
-
Recommend outpatient GI follow-up in 1 to 2 weeks.
Assessment / Plan
-
Assessment-
79-year-old male with past medical history significant for paroxysmal A-fib on Eliquis (charted in June 2025), tachybradycardia syndrome s/p pacemaker placement, essential hypertension, BPH is admitted to the hospital for evaluation of syncope.
GI is consulted for evaluation of anemia and Hemoccult blood stools.
Problem list-
# Syncope
# Anemia with Hemoccult positive blood stools
# Dizziness
# Paroxysmal A-fib on Eliquis, last dose 10 PM on 08/11
# Tachybradycardia syndrome s/p pacemaker placement
# History of internal hemorrhoids
# History of constipation
Plan-
Syncope workup negative, likely vasovagal.
Hemoglobin stable at 8.3, iron studies-iron levels 65, TIBC low at 149, percentage saturation 43, ferritin 483, pattern consistent with anemia of chronic disease.
GI bleed is less likely the cause for syncope at this point. Recommend outpatient GI workup and follow-up.
Subjective
Subjective
Date of Service: August 13, 2025
Patient denies having abdominal pain, nausea, vomiting, chills, constipation, diarrhea or blood in the stool today.
Objective
Data Reviewed
Laboratory Data:
Laboratory Results
08/13/25 07:30
08/13/25 07:30
Laboratory Results
PT 22.5 Sec (11.4-14.6) H 08/12/25 01:24
INR 1.96 08/12/25 01:24
APTT 40.7 Sec (23.4-35.0) H 08/12/25 01:24
Magnesium 1.8 mg/dl (1.6-2.3) 08/12/25 01:24
Total Bilirubin 0.4 mg/dl (0.2-1.3) 08/12/25 01:24
AST 22 U/L (17-59) 08/12/25 01:24
ALT 16 U/L (0-50) 08/12/25 01:24
Alkaline Phosphatase 95 U/L (38-126) 08/12/25 01:24
Vital Signs and I&O:
Vital Signs
Temp Pulse Resp BP Pulse Ox
97.5 F 62 16 125/68 96
08/13/25 07:53 08/13/25 07:53 08/13/25 07:53 08/13/25 07:53 08/13/25 07:53
I&O
08/12/25 08/13/25 08/14/25
06:59 06:59 06:59
Intake Total 1440 / 1440
Output Total 1775 / 1775 550 / 550
Balance -1775 / -1775 890 / 890
Physical Exam
Physical Exam
Cardiology: Normal Sinus Rhythm, S1 and S2
Pulmonary: Clear
GI: Soft, Non Distended, Non Tender and Normal Bowel Sounds
Rectal: Brown (Last bowel movement in the p.m., per nurse.)
Extremities: No Edema
--- NOTE | 2025-08-13 12:12 | W.DS.TRANS ---
DC Summary - [facility]
-
Discharge Instructions:
Discharge Diagnosis/Procedures Vasovagal syncope
Diet Regular
Blood Work CBC, BMP in one week
Instructions:
Stand-Alone Forms:
Changes to Home Medications: No
Discharge Medications:
DC Medications w/original date entered in [facility]
atorvastatin 10 mg tablet (Lipitor) 10 mg PO HS High Cholesterol 10/22/23
ondansetron HCl 4 mg tablet 4 mg PO Q6H PRN nausea 07/06/25
omeprazole 20 mg capsule,delayed release 20 mg PO DAILY 07/09/25
tamsulosin 0.4 mg capsule 0.4 mg PO DAILY 07/09/25
Held on 08/13/25. Instructions: Resume on 08/20/25. monitor BP and consult with primary phyisician
apixaban 5 mg tablet (Eliquis) 5 mg PO BID 08/12/25
cholecalciferol (vitamin D3) 25 mcg (1,000 unit) tablet (Vitamin D3) 25 mcg PO QPM 08/12/25
glucosamine sulfate 500 mg tablet 500 mg PO BID PRN other 08/12/25
Home Medication Changes
Pending Results: No
--- NOTE | 2025-08-13 12:52 | CM ---
CM reviewed chart, patient seen bedside.
Patient for d/c today, confirms transport home around 2:00-2:30 p.m.
IMM verbally reviewed, provided with copy, placed in chart.
CM discussed therapy recommendations of home health verse no needs- pt declining home therapy at this time.
CM will continue to follow.
Plan; home no needs
[2025-08-13] MEDS: ELIQUIS 5 MG PO (12:56)
[2025-08-13] MEDS: FLUZONE HIGH-DOSE 2025-26 0.5 ML IM (14:09)
[2025-08-13 19:04] LABS: Hepatitis C Antibody Negative (Negative)
== END 2025-08-13 15:10 | disposition home or self-care (01) | DRG 312 ==
LOC: 1 ACUTE 07:02
PROVIDERS: ADMITTING PHYSICIAN Hospitalist; ATTENDING PHYSICIAN Internal Medicine; CONSULT PHYSICIAN Internal Medicine; CONSULT PHYSICIAN Specialist; EMERGENCY PHYSICIAN Student in an Organized Health Care Education/Training Program; FAMILY PHYSICIAN Internal Medicine
PROC: 4B02XSZ Measurement of Cardiac Pacemaker, External Approach (ICD-10-PCS; 2025-08-12)
PROC: 3E02340 Introduction of Influenza Vaccine into Muscle, Percutaneous Approach (ICD-10-PCS; 2025-08-13)
DX: I95.1 Orthostatic hypotension (principal); R29.6 Repeated falls; D64.9 Anemia, unspecified; I10 Essential (primary) hypertension; I48.0 Paroxysmal atrial fibrillation; E78.00 Pure hypercholesterolemia, unspecified; I71.21 Aneurysm of the ascending aorta, without rupture; I35.1 Nonrheumatic aortic (valve) insufficiency; R73.03 Prediabetes; G47.33 Obstructive sleep apnea (adult) (pediatric); K64.8 Other hemorrhoids; E66.9 Obesity, unspecified; N40.0 Benign prostatic hyperplasia without lower urinary tract symptoms; W07.XXXA Fall from chair, initial encounter; Y93.89 Activity, other specified; Y92.008 Other place in unspecified non-institutional (private) residence as the place of occurrence of the external cause; Z96.643 Presence of artificial hip joint, bilateral; Z79.01 Long term (current) use of anticoagulants; Z95.0 Presence of cardiac pacemaker; Z91.048 Other nonmedicinal substance allergy status; Z86.13 Personal history of malaria; Z86.0100 Personal history of colon polyps, unspecified; Z23 Encounter for immunization; Z79.899 Other long term (current) drug therapy; Z68.30 Body mass index [BMI] 30.0-30.9, adult
CPT/HCPCS: 70450; 80048; 80053; 82607; 82728; 83540; 83550; 83735; 83880; 84439; 84443; 84484; 85014; 85018; 85025; 85027; 85610; 85730; 86803; 90662; 93005; 93306; 93880; 96360; 99291; G0008

== ENCOUNTER → 2025-08-14 13:07 | Outpatient (REF) | payer MEDICARE, OTHER, SELFPAY | LOC: HWRAD 13:07 | PROVIDERS: ATTENDING PHYSICIAN Physician Assistant; FAMILY PHYSICIAN Internal Medicine | DX: M54.16 Radiculopathy, lumbar region (principal) | CPT/HCPCS: 72131 ==